=== PATIENT | male | born 1955 | race Caucasian/White ===

== ENCOUNTER 2019-07-17 09:24 | Inpatient (IN) ==
--- NOTE | 2019-07-08 10:58 | PAT Medication Instructions ---
Medication Instructions Date of Service July 08, 2019 Home Medications carvedilol 25 mg tablet 25 mg PO BID fenofibrate nanocrystallized 145 mg tablet 145 mg PO QAM glipizide 10 mg tablet 10 mg PO QAM liraglutide 0.6 mg/0.1 mL (18 mg/3 mL) subcutaneous pen injector 0.6 mg SQ QAM pioglitazone 30 mg tablet 30 mg PO QAM STOP taking 48 hours before surgery fenofibrate nanocrystallized 145 mg tablet 145 mg PO QAM DO NOT take the morning of surgery glipizide 10 mg tablet 10 mg PO QAM pioglitazone 30 mg tablet 30 mg PO QAM Take morning of surgery With a small sip of water, OTHERWISE NOTHING TO EAT OR DRINK AFTER MIDNIGHT: carvedilol 25 mg tablet 25 mg PO BID liraglutide 0.6 mg/0.1 mL (18 mg/3 mL) subcutaneous pen injector 0.6 mg SQ QAM Other Notes If you have any questions please call us at [phone] or [phone] or [phone] or [phone]
--- NOTE | 2019-07-08 15:13 | Anesthesiology Consultation ---
Date of Service July 08, 2019 Assessment & Plan (1) Encounter for pre-operative examination: - Awaiting review preop testing (labs, EKG, CXR). - CKD Stage IV- follows with nephrology (Dr. Wheeler/AASHISH). GFR in the 17-20 range per chart review. Nephrology recommending future PD vs. hemodialysis (no definitive start date planned). Note faxed to nephrology making them aware of upcoming surgery/requesting optimization response/perioperative recommendations. Awaiting response from nephrology. - PCP: 07/03/19: "He is medically stable for the proposed surgery." - Check [facility]G AM DOS Chart Review Chart Review: Pending: Refer to Additional Notes / Consult section and Patient seen in Pre Admission Testing awaiting nephrology eval Consults Requested none Teaching & Discussion Pre-Anesthesia Teaching/Discussion Notes: Instructed NPO after midnight before surgery,except medications with 15 cc of water. Medication instructions provided according to the PAT guidelines. History Surgery Operation Date: 07/17/19 11:50 Proposed Procedures p Robotic Laparoscopic Prostatectomy, Possible Lymph Node Dissection - Hesham Robert MD Height/Weight Height: 5 ft 5 in Weight: 80 kg Allergies Allergy/AdvReac Type Severity Reaction Status Date / Time No Known Allergies Allergy Verified 07/01/19 15:07 Medications Home Medications Medication Instructions Recorded Confirmed Last Taken carvedilol 25 mg tablet 25 mg PO BID 06/26/19 07/01/19 Unknown fenofibrate nanocrystallized 145 145 mg PO QAM 06/26/19 07/01/19 Unknown mg tablet glipizide 10 mg tablet 10 mg PO QAM 06/26/19 07/01/19 Unknown liraglutide 0.6 mg/0.1 mL (18 mg/3 0.6 mg SQ QAM 06/26/19 07/01/19 Unknown mL) subcutaneous pen injector pioglitazone 30 mg tablet 30 mg PO QAM 06/26/19 07/01/19 Unknown Past Medical History Medical History Gout hx CKD (chronic kidney disease) Stage IV- follows with nephrology (Dr. Wheeler/AASHISH). GFR in the 17-20 range per chart review. Nephrology recommending future PD vs. hemodialysis (no definitive start date planned) Diabetes High blood pressure Prostate cancer Exercise / Class Metabolic Activity III < 4 Walking/Shop/Light housework Past Family History Family History Father Heart disease Family history of lung cancer Mother Family history of diabetes mellitus Past Surgical History Surgical History History of appendectomy History of colonoscopy Past Anesthesia History No Hx of Anesthesia Complications and No Family Hx of Anesthesia Complications History of PONV No Hx of PONV and No Hx of Motion Sickness Social History Smoking Status: Former smoker Do You Dip or Chew Tobacco: No Smoking End Date: Quit 1975 Hx Alcohol Use: No Hx Substance Use: No substance use type: does not use Review of Systems Patient denies chest pain, shortness of breath, dyspnea on exertion, cough, wheezing, palpitations. Physical Exam Vital Signs VITALS BP 146/88 P 74 TEMP 97.3 SP02 95%RA RESP 16 PHYSICAL Full neck and c-spine range of motion. Full TMJ range of motion. TMD 3 finger breaths Mallampati Score 2 Dentition: intact Lungs: clear throughout to auscultation Cardiac: regular rate and rhythm, no murmurs noted Spine: normal Carotid arteries: negative bruit Extremities: no edema Testing Laboratory Results 07/08/19 15:20 07/08/19 15:20 Urine Color Yellow 07/08/19 15:20 Urine Appearance Clear (Clear) 07/08/19 15:20 Urine pH 5.0 (4.5-7.5) 07/08/19 15:20 Ur Specific [place] 1.020 (1.000-1.030) 07/08/19 15:20 Urine Protein Negative (Negative) 07/08/19 15:20 Urine Glucose (UA) Trace (Negative) H 07/08/19 15:20 Urine Ketones Negative (Negative) 07/08/19 15:20 Urine Nitrite Negative (Negative) 07/08/19 15:20 Ur Leukocyte Esterase Negative (Negative) 07/08/19 15:20 Blood Type O Positive 07/08/19 15:20 Antibody Screen NEGATIVE 07/08/19 15:20 Electrocardiogram Date: 07/08/19 Findings: + NSR @ 1st degree AVB Chest X-Ray Date: 07/08/19 Findings: + cardiomegaly and + pulmonary vascular congestion trace pleural effusions
--- NOTE | 2019-07-08 15:55 | XRay Report ---
XR chest Pre-admission PA/Lat HISTORY: 64 years-old Male pat preoperative exam. No acute chest complaints COMPARISON: None available TECHNIQUE: PA and lateral views of the chest FINDINGS: Cardiac silhouette is mildly enlarged. Mild pulmonary vascular congestion. Calcified plaque the thora cic aortic arch. No pneumothorax or overt pulmonary edema. Hazy bibasilar opacities with blunting of the costophrenic angles. Degenerative changes of the shoulders and spine. IMPRESSION: 1. Cardiomegaly without overt pulmonary edema. 2. Trace pleural effusions with bibasilar opacities favoring atelectasis. The above report was generated using voice recognition software. It may contain grammatical, syntax o r spelling errors. Electronically signed by: Chau Rodriguez M.D. 07/08/2019 3:54 PM
[2019-07-08 16:05] LABS: Basophils # (auto) 0.06 K/uL (0-0.2); Basophils % (auto) 0.8 %; Eosinophils # (auto) 0.37 K/uL (0-0.5); Eosinophils % (auto) 4.9 %; Hematocrit (blood only) 32.9 % (42-52); Immature Granulocytes # (auto) 0.01 K/uL (0.00-0.02); Immature Granulocytes % (auto) 0.1 %; Lymphocytes # (auto) 1.52 K/uL (1.2-3.4); Lymphocytes % (auto) 20.1 %; Mean Corpuscular Hemoglobin 30.1 pg (25-34); Mean Corpuscular Hgb Conc 33.4 g/dL (32-36); Mean Corpuscular Volume 90.1 fL (80-100); Mean Platelet Volume 12.1 fL (7.4-10.4); Monocytes # (auto) 0.54 K/uL (0.11-0.59); Monocytes % (auto) 7.1 %; Neutrophils # (auto) 5.07 K/uL (1.4-6.5); Platelet Count 205 K/uL (130-400); RDW Coefficient of Variation 15.1 % (11.5-14.5); RDW Standard Deviation 49.8 fL (36.4-46.3); Red Blood Count 3.65 M/uL (4.7-6.1); White Blood Count 7.57 K/uL (4.8-10.8)
[2019-07-08 16:13] LABS: BUN Creatinine Ratio 13.7 (10-20); Calcium 9.9 mg/dl (8.5-10.1); Creatinine Clr Calc Pharmacy 24.2 ml/min; Est GFR (African American) 24.3; Potassium 3.8 mmol/L (3.5-5.1)
[2019-07-08 16:23] LABS: Appearance Urine Clear (Clear); Bilirubin Urine Negative (Negative); Blood Urine Negative (Negative); Color Urine Yellow; Glucose Urine UA Trace (Negative); Ketones Urine Negative (Negative); Leukocyte Esterase Urine Negative (Negative); Nitrite Urine Negative (Negative); Protein Urine Negative (Negative); Urobilinogen Urine Negative (Negative)
[~2019-07-17 09:24] MED LIST: ACETAMINOPHEN 1,000 MG/100 ML VIAL IV SCH; CEFAZOLIN 2000MG 2,000 MG/15 ML SYR IV SCH; HEPARIN SOD 5,000 UNIT/0.5 ML VIAL SQ SCH; LACTATED RINGER'S 1,000 ML IV SCH; MIDAZOLAM HCL 1 MG/ML 2ML VIAL ONE; SODIUM CHLORIDE 0.9% 1000ML IV SCH; fentaNYL citrate 100 MCG/2 ML VIAL ONE
--- NOTE | 2019-07-17 10:29 | History & Physical Bridge Note ---
Date of Service July 17, 2019 History & Physical Bridge Note I have examined the patient, reviewed the History & Physical and in the interval since the performance of the History & Physical I have noted the following changes of clinical significance: no changes noted
[2019-07-17] MEDS ORDERED: ATROPINE SULFATE 0.1 MG/ML 10ML SYR IV PRN (10:43)
[2019-07-17] MEDS ORDERED: HYDROmorphone INJ 1 MG/ML SYRINGE IV PRN ×2 (10:43→17:10)
[2019-07-17] MEDS ORDERED: ONDANSETRON INJ 2 MG/ML 2 ML VIAL IV PRN ×2 (10:43→17:10)
[2019-07-17] MEDS ORDERED: BUPIVACAINE 0.5 % 5 MG/1 ML MPF 30ML VIAL ONE (11:05)
[2019-07-17] MEDS ORDERED: SURGICEL ABSORB HEMOSTAT 2IN X 14IN TOP ONE ×2 (12:37→13:41)
[2019-07-17] MEDS ORDERED: fentaNYL citrate 100 MCG/2 ML VIAL ONE (12:57)
[2019-07-17] MEDS ORDERED: PHENYLEPHRINE 100MCG/ML 5ML SYR ONE (13:00)
[2019-07-17] MEDS ORDERED: CISATRACURIUM BESYLATE IV SOLN 2 MG/ML 10 ML VIAL IV ONE (13:00)
[2019-07-17] MEDS ORDERED: NEOSTIGMINE METHYLSULFATE 5 MG/5 ML SYR ONE (13:00)
[2019-07-17] MEDS ORDERED: PROPOFOL IV EMULSION 10 MG/ML 20 ML VIAL IV ONE (13:00)
[2019-07-17] MEDS ORDERED: ONDANSETRON INJ 2 MG/ML 2 ML VIAL ONE (13:00)
[2019-07-17] MEDS ORDERED: ePHEDrine sulfate 50 MG/ML SYR ONE (13:00)
[2019-07-17] MEDS ORDERED: DEXAMETHASONE SOD INJ 4 MG/ML VIAL ONE (13:00)
[2019-07-17] MEDS ORDERED: LIDOCAINE HCL 2% 2 ML VIAL/AMP(20MG/ML) INFIL ONE (13:00)
[2019-07-17] MEDS ORDERED: LARYING-O-JET KIT (LTA) ONE (13:00)
[2019-07-17] MEDS ORDERED: GLYCOPYRROLATE 0.2 MG/ML VIAL ONE (13:00)
[2019-07-17] MEDS ORDERED: FLOSEAL HEMOSTATIC MATRIX 10ML TOP ONE (13:41)
--- NOTE | 2019-07-17 15:51 | Operative Report ---
PG Post Operative Report Pre & Post Diagnosis Operation Date: 07/17/19 11:30 Pre-Op Diagnosis: Prostate Cancer Post-Op Diagnosis: Prostate Cancer I identified the patient and participated in the time-out.: Yes Procedure Operation Date: 07/17/19 11:30 Actual Procedures p Robotic Laparoscopic Prostatectomy, Lymph Node Dissection, Laparoscopic lysis of adhesions - Hesham Robert MD Surgeon Hesham Robert MD [employer] GRIFFIN ERNANDEZ Estimated Blood Loss 150 Findings Consistent with Post-Op Diagnosis Specimens Prostate + SVs, periprostatic fat, R and L PLN Description of Procedure See above I attest to the content of the Intraoperative Record and any orders documented therein. Any exceptions are noted below.
[2019-07-17 16:22] LABS: Basophils # (auto) 0.03 K/uL (0-0.2); Basophils % (auto) 0.3 %; Eosinophils # (auto) 0.15 K/uL (0-0.5); Eosinophils % (auto) 1.3 %; Hematocrit (blood only) 34.3 % (42-52); Hemoglobin 11.3 g/dL (14.0-18.0); Immature Granulocytes # (auto) 0.03 K/uL (0.00-0.02); Immature Granulocytes % (auto) 0.3 %; Lymphocytes # (auto) 0.42 K/uL (1.2-3.4); Lymphocytes % (auto) 3.6 %; Mean Corpuscular Hemoglobin 30.2 pg (25-34); Mean Corpuscular Volume 91.7 fL (80-100); Mean Platelet Volume 11.8 fL (7.4-10.4); Monocytes # (auto) 0.27 K/uL (0.11-0.59); Monocytes % (auto) 2.3 %; Neutrophils # (auto) 10.61 K/uL (1.4-6.5); Neutrophils % (auto) 92.2 %; Platelet Count 177 K/uL (130-400); RDW Coefficient of Variation 15.1 % (11.5-14.5); Red Blood Count 3.74 M/uL (4.7-6.1); White Blood Count 11.51 K/uL (4.8-10.8)
[2019-07-17 16:24] LABS: Mean Corpuscular Hgb Conc 32.9 g/dL (32-36)
[2019-07-17 16:39] LABS: BUN Creatinine Ratio 14.9 (10-20); Calcium 9.1 mg/dl (8.5-10.1); Creatinine Clr Calc Pharmacy 23.5 ml/min; Est GFR (African American) 23.9; Est GFR (Non-African American) 20.6; Potassium 4.1 mmol/L (3.5-5.1)
--- NOTE | 2019-07-17 16:42 | Anesthesiology Progress Note ---
Date of Service July 17, 2019 Anesthesia Post Procedure Vital Signs Vital Signs: Temp Pulse Pulse Resp BP Pulse Ox 07/17/19 16:30 37.0 C 71 17 115/74 97 07/17/19 16:20 74 20 115/79 98 07/17/19 16:10 75 21 115/75 98 07/17/19 16:00 78 11 L 119/73 98 07/17/19 15:53 36.8 C 87 16 119/84 98 07/17/19 10:08 37.2 C 90 20 121/84 96 Transfer of Care Handoff Completed per policy Notes Mental Status: alert / awake / arousable and participated in evaluation Patient Amnestic to Procedure: Yes Nausea / Vomiting: adequately controlled Pain: adequately controlled Airway Patency, RR, SpO2: stable & adequate BP & HR: stable & adequate Hydration State: stable & adequate Anesthetic Complications: no major complications apparent
[2019-07-17] MEDS ORDERED: OXYCODONE HCL IR 5 MG TAB (IMMEDIATE RELEASE) PO PRN (17:10)
[2019-07-17] MEDS ORDERED: HYDROmorphone INJ 0.5 MG/0.5 ML SYR IV PRN (17:23)
[2019-07-17] MEDS: LACTATED RINGER'S 1,000 ML IV SCH (17:27)
[2019-07-17] MEDS ORDERED: PHARMACY GLYCEMIC MGMT CONSULT PRN (17:36)
[2019-07-17] MEDS ORDERED: CARBOHYDRATES FOR HYPOGLYCEMIA PO PRN (17:45)
[2019-07-17] MEDS ORDERED: GLUCAGON FOR INJ 1 MG VIAL IM PRN (17:45)
[2019-07-17] MEDS ORDERED: GLUCOSE 40% GEL 15 GM TUBE PO PRN (17:45)
[2019-07-17] MEDS ORDERED: GLUCOSE 10 TABS/TUBE PO PRN (17:45)
[2019-07-17] MEDS ORDERED: DEXTROSE 50% 50 ML SYRINGE IV PRN (17:45)
[2019-07-17] MEDS ORDERED: NovoLIN-N (NPH) PER UNIT CHARGE SQ SCH (18:00)
[2019-07-17] MEDS: INSULIN ASPART 100 UNITS/ML 3 ML PEN SC SCH ×3 (18:10→23:43)
--- NOTE | 2019-07-17 18:42 | Hospitalist Consultation ---
Date of Consultation July 17, 2019 Assessment & Plan (1) S/P prostatectomy: (2) Prostate cancer: -POD#0 laparoscopic prostatectomy with lymph node dissection with Dr. Robert -Recently diagnosed with prostate cancer and presented for planned procedure today -Management as per urology (3) CKD (chronic kidney disease), stage IV: -Baseline creatinine low to mid 3's -Follows with [facility] nephrology, Dr. Alejandro -Planning for possible peritoneal dialysis -Monitor renal functions (4) DM type 2 (diabetes mellitus, type 2): -Hgb A1c 5.6 06/2019 -Home oral agents and Victoza on hold -Glycemic pharmacy consulted by urology (5) HTN (hypertension): -BP controlled, continue carvedilol (6) DVT prophylaxis: -Teds/SCDs as per urology Thank you for this consultation. We will follow the patient with you during their hospital stay. You can reach a [facility] via pager @ [phone]. Supervising Physician Co-Signing Physician Notes Attending addendum: The patient was seen and examined in medical floor He is a 64-year-old male with significant past medical history of CKD stage IV, type 2 diabetes and hypertension underwent laparoscopic prostatectomy for carcinoma of the prostate He has been stable without any acute symptoms following the surgery On examination No apparent distress at rest Hemodynamically stable Chest-clear to auscultate bilateral Heart-S1-S2, regular, no murmur appreciated Abdomen-benign Extremities-negative for any edema His labs and imaging studies reviewed Status post laparoscopic prostatectomy due to prostate cancer, POD #0 Agree with assessment and plan as outlined above by Ivett Frankel History of Present Illness Reason for Consultation: Postop medical management Requesting Physician: Dr. Robert Attending Physician: Dr. Frankel History of Present Illness 64-year-old male who is status post laparoscopic prostatectomy with lymph node dissection today per Dr. Robert. Patient was recently diagnosed with prostate cancer and therefore presented for planned procedure today. Postoperatively, the patient is doing well. He reports his pain is well controlled. Denies chest pain and shortness of breath. No lightheadedness or dizziness. Denies abdominal pain or nausea. Jett catheter is in place draining bloody urine. Allergies Allergy/AdvReac Type Severity Reaction Status Date / Time No Known Allergies Allergy Verified 07/17/19 10:04 Home Medications Home Medications Medication Instructions Recorded Confirmed Type carvedilol 25 mg tablet 12.5 mg PO BID 06/26/19 07/17/19 History fenofibrate nanocrystallized 145 145 mg PO QAM 06/26/19 07/17/19 History mg tablet glipizide 10 mg tablet 10 mg PO QAM 06/26/19 07/17/19 History liraglutide 0.6 mg/0.1 mL (18 mg/3 0.6 mg SQ QAM 06/26/19 07/17/19 History mL) subcutaneous pen injector pioglitazone 30 mg tablet 30 mg PO QAM 06/26/19 07/17/19 History Patient History Medical History (Updated 07/17/19 @ 18:47 by AWAIS Prieto) CKD (chronic kidney disease), stage IV DM type 2 (diabetes mellitus, type 2) Gout hx Hypertension Prostate cancer Surgical History (Updated 07/17/19 @ 18:47 by AWAIS Prieto) History of appendectomy History of colonoscopy S/P prostatectomy Family History Father Heart disease Family history of lung cancer Mother Family history of diabetes mellitus Social History Preferred Language: Pashto Communication Ability: Effective Disability Coordinator Required: No Beliefs That Will Affect Care: None marital status: Current Living Situation: Spouse and Family Other Information That Helps Us Care for You: No Feels Safe at Home: Yes Smoking Status: Former smoker Do You Dip or Chew Tobacco: No ; Smoking End Date: Quit 1975 ; Hx Alcohol Use: No Hx Substance Use: No Childhood Exposure to Second-Hand Smoke: No Review of Systems Review of Systems: ROS per HPI, all other systems reviewed and negative Physical Exam Constitutional: WD/WN, vitals as above Eyes: PERRL, conjunctivae normal, anicteric sclerae ENMT: external ear and nose normal, oropharynx normal Respiratory: normal respiratory effort, lungs clear to auscultation Cardiovascular: Rate/Rhythm: regular rate and regular rhythm Vessels: normal peripheral pulses Extremities: no edema Gastrointestinal (Abdomen): normal bowel sounds, soft, nontender, no hepatosplenomegaly Laparoscopic incisions noted - intact without drainage; MORTEZA drain in place to left flank, draining bloody drainage Musculoskeletal: no cyanosis or clubbing, extremities motor strength 5/5 Skin: no rashes, warm and dry Neurologic: PERRL, EOMI, accommodation nl, no face palsy, no dysarthria Psychiatric: A+Ox3, euthymic affect Genitourinary: Jett catheter in place draining bloody drainage Results & Data Vital Signs (Past 12 Hours) Vital Signs Temp Pulse Pulse Resp BP BP Pulse Ox 07/17/19 17:45 36.6 C 74 18 129/80 96 07/17/19 17:15 36.5 C 63 18 130/77 130/77 97 07/17/19 16:40 37.0 C 73 17 125/77 97 07/17/19 16:30 37.0 C 71 17 115/74 97 07/17/19 16:20 74 20 115/79 98 07/17/19 16:10 75 21 115/75 98 07/17/19 16:00 78 11 L 119/73 98 07/17/19 15:53 36.8 C 87 16 119/84 98 07/17/19 10:08 37.2 C 90 20 121/84 96
[2019-07-17] MEDS: CEFAZOLIN 2000MG 2,000 MG/15 ML SYR IV SCH (19:43)
[2019-07-17] MEDS: OXYBUTYNIN CHLORIDE 5 MG TAB PO SCH (20:47)
[2019-07-17] MEDS: carvediloL 12.5 MG TAB PO SCH (20:49)
[2019-07-17] MEDS ORDERED: carvediloL 25 MG TAB PO SCH (21:00)
[2019-07-17] MEDS ORDERED: NURSING DECISION MEDICATION ONE (22:42)
[2019-07-17] MEDS ORDERED: COUGH DROP (SUGAR FREE) LOZ 24 LOZ/1 BOX BUCCAL PRN (22:44)
[2019-07-18] MEDS: CEFAZOLIN 2000MG 2,000 MG/15 ML SYR IV SCH (04:17)
[2019-07-18] MEDS: INSULIN ASPART 100 UNITS/ML 3 ML PEN SC SCH ×5 (04:35→20:25)
[2019-07-18] MEDS: LACTATED RINGER'S 1,000 ML IV SCH ×2 (06:08→19:27)
--- NOTE | 2019-07-18 06:58 | Urology Progress Note ---
Date of Service July 18, 2019 Assessment & Plan (1) Prostate cancer: (2) S/P prostatectomy: 64 yo male POD#1 s/p RALRP, BPLND for Yolanda 3+[address] Robert Appreciate hospitalist recommendations for medical management. Pleased with maintained kidney function immediate post operatively. Wean O2. Will increase diet to renal, soft. Plan to keep overnight tonight to ensure good clinical progress prior to discharge. Pt noted to have significant scar tissue intraoperatively. Will arrange for cystogram prior to voiding trial prior to post operative visit. Subjective 64 yo male POD#1 s/p RALRP, BPLND for Yolanda 3+[address] Robert. His intraop findings are reviewed. Pt doing well this AM. Denies pain or discomfort from luciano catheter. Tolerating clear liquids well Chart reviewed, ~200 cc per MORTEZA last shift as anticipated 400 cc UOP via luciano noted. Cr maintained at baseline, 2.99 this AM. Review of Systems Review of Systems: Constitutional: Denies fever, chills, sweats, malaise Eyes: Denies problem reported ENMT: Denies dizziness Resp: Denies cough, Denies shortness of breath CV: Denies JVD GI: Denies nausea/vomiting : Denies suprapubic or flank pain, dysuria, urgency, frequency, hematuria MS: Denies swelling, stiffness Integ: Denies rash, erythema Neuro: Denies falls, weakness Psych: Denies behavior change Endo: Denies polyphagia, polydipsia Heme: Denies easy bleeding Physical Exam Constitutional: no acute distress and not ill appearing Eyes: no nystagmus ENMT: Ears: no hearing impairment Neck: trachea midline Respiratory: no respiratory distress and no cough Cardiovascular: Vessels: no JVD Chest (Breasts): Chest: normal inspection of chest Gastrointestinal (Abdomen): Inspection/Auscultation: abdomen not distended and no abdominal edema Percussion/Palpation: abdomen soft; abdomen nontender Musculoskeletal: Head/Neck/Chest: normocephalic and head atraumatic Skin: no rashes, warm and dry incisions c/d/i MORTEZA draining minimal serosang Luciano draining adequate amounts of obdulio colored urine, minimal clots Neurologic: awake; not confused and not obtunded Psychiatric: Orientation: alert and oriented x 3 Eye Contact: good eye contact Affect: no depressed affect Genitourinary: bladder normal to inspection; no CVA tenderness Lymphatic: no lymphadenopathy and no lymphedema Results & Data Vital Signs (Past 12 Hours) Vital Signs Temp Pulse Pulse Resp BP BP Pulse Ox 07/18/19 04:38 36.6 C 72 20 102/65 98 07/18/19 00:00 83 07/17/19 22:40 35.7 C L 89 18 116/77 99 07/17/19 19:45 36.3 C L 83 18 130/82 98 07/17/19 19:35 81 PG Care Time/CCT Total # of Minutes Spent Total Time Spent with Patient: Total time spent is greater than 50% in coordination of care (as documented) at patient's floor/unit and/or counseling patient:
[2019-07-18 07:43] LABS: Basophils # (auto) 0.02 K/uL (0-0.2); Basophils % (auto) 0.1 %; Eosinophils # (auto) 0.06 K/uL (0-0.5); Eosinophils % (auto) 0.4 %; Hematocrit (blood only) 31.7 % (42-52); Hemoglobin 10.6 g/dL (14.0-18.0); Immature Granulocytes # (auto) 0.03 K/uL (0.00-0.02); Immature Granulocytes % (auto) 0.2 %; Lymphocytes # (auto) 0.84 K/uL (1.2-3.4); Lymphocytes % (auto) 6.3 %; Mean Corpuscular Hemoglobin 30.4 pg (25-34); Mean Corpuscular Hgb Conc 33.4 g/dL (32-36); Mean Corpuscular Volume 90.8 fL (80-100); Mean Platelet Volume 11.7 fL (7.4-10.4); Monocytes # (auto) 0.96 K/uL (0.11-0.59); Monocytes % (auto) 7.1 %; Neutrophils # (auto) 11.53 K/uL (1.4-6.5); Neutrophils % (auto) 85.9 %; Platelet Count 158 K/uL (130-400); RDW Coefficient of Variation 15.2 % (11.5-14.5); Red Blood Count 3.49 M/uL (4.7-6.1); White Blood Count 13.44 K/uL (4.8-10.8)
--- NOTE | 2019-07-18 08:13 | Anesthesiology Progress Note ---
Date of Service July 18, 2019 Anesthesia Post Procedure Vital Signs Vital Signs: Temp Pulse Pulse Pulse Pulse Resp BP 07/18/19 06:57 36.5 C 73 20 07/18/19 04:38 36.6 C 72 20 102/65 07/18/19 00:00 83 07/17/19 22:40 35.7 C L 89 18 07/17/19 19:45 36.3 C L 83 18 130/82 07/17/19 19:35 81 07/17/19 18:45 36.4 C L 70 18 127/65 07/17/19 17:45 36.6 C 74 18 129/80 07/17/19 17:15 36.5 C 63 18 130/77 07/17/19 17:00 36.5 C 74 18 116/75 07/17/19 16:40 37.0 C 73 17 07/17/19 16:30 37.0 C 71 17 07/17/19 16:20 74 20 07/17/19 16:10 75 21 07/17/19 16:00 78 11 L 07/17/19 15:53 36.8 C 87 16 07/17/19 10:08 37.2 C 90 20 BP Pulse Ox 07/18/19 06:57 112/70 97 07/18/19 04:38 98 07/18/19 00:00 07/17/19 22:40 116/77 99 07/17/19 19:45 98 07/17/19 19:35 07/17/19 18:45 99 07/17/19 17:45 96 07/17/19 17:15 130/77 97 07/17/19 17:00 97 07/17/19 16:40 125/77 97 07/17/19 16:30 115/74 97 07/17/19 16:20 115/79 98 07/17/19 16:10 115/75 98 07/17/19 16:00 119/73 98 07/17/19 15:53 119/84 98 07/17/19 10:08 121/84 96 Notes Mental Status: alert / awake / arousable and participated in evaluation Nausea / Vomiting: adequately controlled Pain: adequately controlled Airway Patency, RR, SpO2: stable & adequate BP & HR: stable & adequate Hydration State: stable & adequate Anesthetic Complications: no major complications apparent and Pt Satisfied with anesthetic care
[2019-07-18 08:14] LABS: BUN Creatinine Ratio 14.4 (10-20); Calcium 9.3 mg/dl (8.5-10.1); Creatinine Clr Calc Pharmacy 25.2 ml/min; Est GFR (African American) 24.4; Est GFR (Non-African American) 21.1; Potassium 3.7 mmol/L (3.5-5.1)
--- NOTE | 2019-07-18 08:23 | Hospitalist Progress Note ---
Date of Service July 18, 2019 Assessment & Plan (1) S/P prostatectomy: (2) Prostate cancer: POD#1 laparoscopic prostatectomy with lymph node dissection with Dr. Robert Recently diagnosed with prostate cancer and presented for planned procedure today H/H stable continue luciano cath per urology wean off O2 (3) CKD (chronic kidney disease), stage IV: -Baseline creatinine low to mid 3's Follows with [facility] nephrology, Dr. Alejandro Planning for possible peritoneal dialysis bun/cr 43/2.99 (4) DM type 2 (diabetes mellitus, type 2): Hgb A1c 5.6 06/2019 Home oral agents and Victoza on hold Glycemic pharmacy consulted by urology - appreciate their input (5) HTN (hypertension): blood pressure controlled, continue carvedilol (6) Anemia: H/H stable at 10.6/31.7 likely in setting of renal dz stable, monitor (7) DVT prophylaxis: Teds/SCDs as per urology Pt seen and examined in collaboration with Dr. Hall, please see addendum Thank you for this consultation. We will follow the patient with you during their hospital stay. You can reach a [facility] via pager @ [phone]. Supervising Physician Co-Signing Physician Notes I, Dr. Alexys Hall, have seen and examined the patient with physician unit assistant and would like to comment that This is a 64 year old male under the direct care of [facility] [address] Urology service with hospitalist internal medicine service following as consult who is on 07/17/19 status post Robotic Laparoscopic Prostatectomy, Lymph Node Dissection, Laparoscopic lysis of adhesions because of outpatient diagnosis of prostate cancer On exam General: no acute distress Lungs: breathing on room air, clear to auscultation bilaterally Heart: regular heart rate Abdomen: bowel sounds present, truncal obesity, tenderness on palpation of left abdomen and patient reports this was present to the touch even before the prostate procedure, otherwise he denies acute abdominal pain Urinary: has luciano with some darkish brown like blood tinged urine s/p PROSTATECTOMY PROSTATE CANCER TYPE 2 DIABETES MELLITUS WITHOUT RESIDENTIAL CURRENT USE OF INSULIN CHRONIC KIDNEY DISEASE STAGE IV HYPERTENSION ANEMIA -status post Robotic Laparoscopic Prostatectomy, Lymph Node Dissection, Laparoscopic lysis of adhesions because of outpatient diagnosis of prostate cancer -urology service increase diet to renal, soft and plans to keep overnight tonight to ensure good clinical progress prior to discharge. -will maintain IV fluids and trend the renal function -blood pressure stable -blood glucose is controlled -Hgb above 10, no need to transfuse -agree with other assessment and plans as documented by physician unit assistant Subjective Patient seen and examined in room 276 -1 POD#1 s/p RALRP, BPLND for [place] 3+4 He offers no acute concerns. Currently on oxygen and has been since procedure, but states he does not wear oxygen at home. Denies fever, chills, sweats, lightheadedness, dizziness, chest pain, shortness of breath, nausea, vomiting, abdominal pain. He does have mild incisional discomfort. Luciano catheter remains in place. Appetite is good. Review of Systems Review of Systems: All systems reviewed & are unremarkable except as noted in HPI & below Physical Exam Physical Exam: Gen: WD/WN, NAD, M, A&O x3 HEENT: Normocephalic, atraumatic, conjunctivae moist, sclerae anicteric, mucous membranes moist. Lung: Clear to Auscultation bilaterally, no wheezes/rales/rhonchi Heart: Regular rate, regular rhythm, no murmurs, rubs, or gallops Abdomen: Soft, NT, ND +BS x 4, + incisions CDI Extremities: No edema Skin: Warm, no rash, negative turgor. : Luciano with good urine output Results & Data Vital Signs (Past 12 Hours) Vital Signs Temp Pulse Pulse Resp BP BP Pulse Ox 07/18/19 06:57 36.5 C 73 20 112/70 97 07/18/19 04:38 36.6 C 72 20 102/65 98 07/18/19 00:00 83 07/17/19 22:40 35.7 C L 89 18 116/77 99 Laboratory Results Short CBC 07/17/19 07/18/19 Range/Units 16:15 07:31 WBC 11.51 H 13.44 H (4.8-10.8) K/uL Hgb 11.3 L 10.6 L (14.0-18.0) g/dL Hct 34.3 L 31.7 L (42-52) % Plt Count 177 158 (130-400) K/uL BMP 07/17/19 07/18/19 16:15 07:31 Sodium 139 139 Potassium 4.1 3.7 Chloride 111 H 109 H Carbon Dioxide 17 L 21 BUN 45 H 43 H Creatinine 3.04 H 2.99 H Glucose 174 H 94 Calcium 9.1 9.3 Medications Administered Carvedilol (Coreg) 12.5 mg PO BID [facility] Stop: 08/16/19 20:59 Last Admin: 07/17/19 20:49 Dose: 12.5 mg Documented by: [id number] Lactated Ringer's (Lr) 1,000 mls @ 75 mls/hr IV .[id number] [facility] Stop: 08/16/19 17:09 Last Admin: 07/18/19 06:08 Dose: 75 mls/hr Documented by: [id number] Infusion: 07/18/19 06:08 Dose: 75 mls/hr Documented by: [id number] Admin: 07/17/19 17:27 Dose: 75 mls/hr Documented by: [id number] Insulin Aspart (Novolog Flexpen) 0 units SC ACHS [facility] Stop: 08/16/19 17:29 Last Admin: 07/17/19 20:47 Dose: 2 units Documented by: [id number] Cosigned by: [id number] Admin: 07/17/19 18:10 Dose: 6 units Documented by: [id number] Cosigned by: [id number] Menthol (Nice) 1 margarita BUCCAL PRN PRN PRN Reason: Cough Stop: 08/16/19 22:43 Last Admin: 07/17/19 23:39 Dose: 1 margarita Documented by: [id number] Oxybutynin Chloride (Ditropan) 5 mg PO BID [facility] Stop: 08/16/19 20:59 Last Admin: 07/17/19 20:47 Dose: 5 mg Documented by: [id number] Discontinued Medications Bupivacaine HCl (Marcaine 0.5% Mpf) Confirm Administered Dose 30 ml .ROUTE .STK- MED ONE Stop: 07/17/19 11:06 Last Admin: 07/17/19 12:45 Dose: 30 ml Documented by: [id number] Heparin Sodium (Porcine) (Heparin Sodium (Porcine)) 5,000 units SQ PREOP [facility] Stop: 07/17/19 18:00 Last Admin: 07/17/19 10:34 Dose: 5,000 units Documented by: [id number] Cosigned by: [id number] Cefazolin Sodium (Ancef 2000mg) 2,000 mg in 15 mls @ 3.75 mls/min IV PREOP [facility] Stop: 07/17/19 18:00 Last Admin: 07/17/19 12:00 Dose: 3.75 mls/min Documented by: [id number] Lactated Ringer's (Lr) 1,000 mls @ 15 mls/hr IV .Q24H [facility] Stop: 07/17/19 18:00 Last Admin: 07/17/19 10:37 Dose: Not Given Documented by: [id number] Acetaminophen (Ofirmev) 1,000 mg in 100 mls @ 400 mls/hr IV PREOP [facility]; Protocol Stop: 07/17/19 18:00 Last Infusion: 07/17/19 10:49 Dose: 0 mls/hr Documented by: [id number] Admin: 07/17/19 10:34 Dose: 400 mls/hr Documented by: [id number] Sodium Chloride (Nss 1000ml) 1,000 mls @ 15 mls/hr IV .Q24H [facility] Stop: 07/18/19 05:59 Last Infusion: 07/17/19 11:42 Dose: 0 mls/hr Documented by: [id number] Admin: 07/17/19 10:25 Dose: 15 mls/hr Documented by: [id number] Cefazolin Sodium (Ancef 2000mg) 2,000 mg in 15 mls @ 3.75 mls/min IV Q8H [facility]; Protocol Stop: 07/18/19 04:03 Last Admin: 07/18/19 04:17 Dose: 3.75 mls/min Documented by: [id number] Admin: 07/17/19 19:43 Dose: 3.75 mls/min Documented by: [id number] Insulin Aspart (Novolog Flexpen) 0 units SC TODAY@0000,0400 [facility] Stop: 07/18/19 05:00 Last Admin: 07/18/19 04:35 Dose: Not Given Documented by: [id number] Cosigned by: [id number] Admin: 07/17/19 23:43 Dose: 1 units Documented by: [id number] Cosigned by: [id number] Insulin Human NPH (Novolin N U-100 Nph Per Unit) 30 units SQ TODAY@1800 [facility] Stop: 07/17/19 18:01 Last Admin: 07/17/19 18:09 Dose: 30 units Documented by: [id number] Cosigned by: [id number] Miscellaneous (Surgicel Absorb Hemostat 2in X 14in) 1 ea TOP ONCE ONE Stop: 07/17/19 12:38 Last Admin: 07/17/19 13:03 Dose: 1 ea Documented by: [id number] Miscellaneous (Floseal Hemostatic Matrix 10ml) 10 ml TOP ONCE ONE Stop: 07/17/19 13:42 Last Admin: 07/17/19 13:42 Dose: 10 ml Documented by: [id number] Miscellaneous (Surgicel Absorb Hemostat 2in X 14in) 1 ea TOP ONCE ONE Stop: 07/17/19 13:42 Last Admin: 07/17/19 13:42 Dose: 1 ea Documented by: [id number]
[2019-07-18] MEDS: OXYBUTYNIN CHLORIDE 5 MG TAB PO SCH ×2 (08:46→20:19)
[2019-07-18] MEDS: carvediloL 12.5 MG TAB PO SCH ×2 (08:46→20:21)
[2019-07-18] MEDS: FENOFIBRATE NANOCRYSTALLIZED 145 MG TABLET PO SCH (08:47)
--- NOTE | 2019-07-18 09:38 | Pharmacy Report ---
Glycemic Control Consultation - Date of Service July 18, 2019 - Scope Scope: Glycemic Pharmacist consulted by Dr Hardy on 07/17 for glycemic control and to write orders per [facility] inpatient glycemic control protocol - Objective Weight: 85.9 kg Accuchecks BSG (last 24hrs): 07/17/19 07/17/19 07/17/19 09:50 09:53 10:52 Glucose POC Glucose 62 L* 71 83 07/17/19 07/17/19 07/17/19 15:53 16:15 17:43 Glucose 174 H POC Glucose 173 H 162 H 07/17/19 07/17/19 07/18/19 20:34 23:41 04:09 Glucose POC Glucose 177 H 145 H 120 H 07/18/19 07/18/19 07:13 07:31 Glucose 94 POC Glucose 86 Laboratory Data (last 24hrs): 07/17/19 07/18/19 16:15 07:31 Potassium 4.1 3.7 Carbon Dioxide 17 L 21 Anion Gap 11.0 10.0 Creatinine 3.04 H 2.99 H Est Cr Clr Drug Dosing 23.5 25.2 - Recent Pertinent Medications Outpatient Anti-diabetic Regimen: * Glipizide 10 mg qAM * Victoza 0.6 mg qAM * Actos 30 mg qAM * A1c = 5.6 % 06/2019 The patient is currently receiving: * Basal insulin: NPH 30 units given yesterday afternoon * Correctional Insulin: Novolog Correction per scale ACHS Goal Range: Low 110 mg/dL - High 140 mg/dL Correction Factor: 20 mg/dL/unit * Prandial insulin: Per carb ratio of 1 unit per 7 grams CHO consumed * Oral Agents: None at this time Risk Factors for Insulin Resistance: * Steroids: Decadron 4mg IV given intraop * Recent Surgery: POD 1 * Diet: clear liquid - Assessment & Plan Assessment & Plan: ASSESSMENT: * 64 y/o male admitted s/p prostatectomy * Pt is maintained on oral antidiabetic agents + GLP-1 as an outpatient * These are not recommended for inpatient use d/t drug interactions, changing PO intake, and difficulty titrating for acute hyper/hypoglycemia. ADA recommends re-initiating outpatient oral agents 1-2 days prior to discharge if/when appropriate if they were held on admission. * Will hold oral agents + GLP-1 for admission and utilize SQ basal bolus insulin regimen which is the recommended regimen for inpatient glycemic control. * Will initiate weight based insulin dosing for insulin freddie patient and titrate based on BSG trends. * BSGs have been well controlled with single dose of NPH + Novolog to cover Decadron given in the OR * Will plan to loosen insulin regimen now that Decadron should be wearing off today * Will still utilize basal/bolus insulin due to outpatient regimen with 3 agents PLAN FOR INPATIENT GLYCEMIC CONTROL: * Holding outpatient oral diabetes + GLP-1 medications * Basal insulin - start at lunch today d/t lower BSG this AM * Lantus SQ BID per the following scale: * 7 units for BSG 140 or less * 13 units for BSG > 140 * Bolus insulin - loosen starting with lunch * NovoLog per scale ACHS or Q6hrs while NPO * Goal Range: Low 110 mg/dL - High 140 mg/dL * Correction Factor: 30 mg/dL/unit * Nutritional / Prandial insulin per carb ratio of 1 unit per 10 grams CHO consumed Discharge Recommendations: * A1c = 5.6% on 06/2019 * Goal A1c < 7% for age/comorbidities * Recommend to continue outpatient regimen on discharge, as long as patient not experiencing hypoglycemia at home Thank you.
--- NOTE | 2019-07-18 09:47 | Pharmacy Report ---
Glycemic Control Consultation - Date of Service July 18, 2019 - Scope Scope: Glycemic Pharmacist consulted by Dr Hardy on 07/17 for glycemic control and to write orders per [facility] inpatient glycemic control protocol - Objective Weight: 85.9 kg Accuchecks BSG (last 24hrs): 07/17/19 07/17/19 07/17/19 09:50 09:53 10:52 Glucose POC Glucose 62 L* 71 83 07/17/19 07/17/19 07/17/19 15:53 16:15 17:43 Glucose 174 H POC Glucose 173 H 162 H 07/17/19 07/17/19 07/18/19 20:34 23:41 04:09 Glucose POC Glucose 177 H 145 H 120 H 07/18/19 07/18/19 07:13 07:31 Glucose 94 POC Glucose 86 Laboratory Data (last 24hrs): 07/17/19 07/18/19 16:15 07:31 Potassium 4.1 3.7 Carbon Dioxide 17 L 21 Anion Gap 11.0 10.0 Creatinine 3.04 H 2.99 H Est Cr Clr Drug Dosing 23.5 25.2 - Recent Pertinent Medications Outpatient Anti-diabetic Regimen: * Glipizide 10 mg qAM * Victoza 0.6 mg qAM * Actos 30 mg qAM * A1c = 5.6 % 06/2019 The patient is currently receiving: * Basal insulin: NPH 30 units x 1 given 07/17 PM * Correctional Insulin: Novolog Correction per scale ACHS Goal Range: Low 110 mg/dL - High 140 mg/dL Correction Factor: 20 mg/dL/unit * Prandial insulin: Per carb ratio of 1 unit per 7 grams CHO consumed * Oral Agents: None at this time Risk Factors for Insulin Resistance: * Steroids: Decadron 4 mg given intraop yesterday * Recent Surgery: POD 1 * Diet: clear liquid - Assessment & Plan Assessment & Plan: ASSESSMENT: * PLAN FOR INPATIENT GLYCEMIC CONTROL: * Starting IV insulin infusion per [] (moderate/severe) stress protocol * Goal Range [] - [] mg/dl * In the critical care setting, continuous IV insulin infusion has been shown to be the best method for achieving glycemic targets. * Holding outpatient oral diabetes medications * Basal insulin * Lantus [] units SQ BID * Bolus insulin * NovoLog per scale ACHS or Q6hrs while NPO * Goal Range: Low [] mg/dL - High [] mg/dL * Correction Factor: [] mg/dL/unit * Nutritional / Prandial insulin per carb ratio of 1 unit per [] grams CHO consumed OR PLAN FOR INPATIENT GLYCEMIC CONTROL: * Continuing / Increasing / decreasing Lantus/NPH to [] units SQ BID * Continuing / changing correction factor to [] mg/dl/unit * Continuing / changing carb ratio to 1 unit per [] grams CHO consumed * Continuing / changing goal range to Low [] mg/dL - High [] mg/dL * Please note that the plan above was derived based on current level of insulin resistance and hospital stress. These recommendations are appropriate for inpatient admission only. Plan of care upon discharge will need to be reassessed to avoid potential outpatient hypo/hyperglycemia. Thank you.
[2019-07-18] MEDS ORDERED: SODIUM CHLORIDE 0.9% 1000ML 500 ML IV ONE (11:15)
[2019-07-18] MEDS: OXYCODONE HCL IR 5 MG TAB (IMMEDIATE RELEASE) PO PRN ×2 (11:29→17:13)
[2019-07-18] MEDS: INSULIN GLARGINE SOLOSTAR 100 UNITS/ML 3 ML PEN SC SCH ×2 (12:15→20:19)
[2019-07-19] MEDS: OXYCODONE HCL IR 5 MG TAB (IMMEDIATE RELEASE) PO PRN ×2 (05:58→12:32)
[2019-07-19 06:10] LABS: Basophils # (auto) 0.03 K/uL (0-0.2); Basophils % (auto) 0.3 %; Eosinophils # (auto) 0.44 K/uL (0-0.5); Eosinophils % (auto) 3.9 %; Hematocrit (blood only) 30.5 % (42-52); Hemoglobin 10.2 g/dL (14.0-18.0); Immature Granulocytes # (auto) 0.02 K/uL (0.00-0.02); Immature Granulocytes % (auto) 0.2 %; Lymphocytes # (auto) 0.79 K/uL (1.2-3.4); Lymphocytes % (auto) 7.1 %; Mean Corpuscular Hemoglobin 30.2 pg (25-34); Mean Corpuscular Hgb Conc 33.4 g/dL (32-36); Mean Corpuscular Volume 90.2 fL (80-100); Mean Platelet Volume 11.5 fL (7.4-10.4); Monocytes # (auto) 0.84 K/uL (0.11-0.59); Monocytes % (auto) 7.5 %; Neutrophils # (auto) 9.02 K/uL (1.4-6.5); Platelet Count 138 K/uL (130-400); RDW Coefficient of Variation 15.2 % (11.5-14.5); RDW Standard Deviation 50.3 fL (36.4-46.3); Red Blood Count 3.38 M/uL (4.7-6.1); White Blood Count 11.14 K/uL (4.8-10.8)
[2019-07-19 06:59] LABS: BUN Creatinine Ratio 16.1 (10-20); Calcium 8.6 mg/dl (8.5-10.1); Creatinine Clr Calc Pharmacy 29.8 ml/min; Est GFR (African American) 30.5; Est GFR (Non-African American) 26.3; Potassium 3.5 mmol/L (3.5-5.1)
[2019-07-19] MEDS ORDERED: POTASSIUM CHLORIDE 20 MEQ TABCR PO STA (07:29)
[2019-07-19] MEDS: OXYBUTYNIN CHLORIDE 5 MG TAB PO SCH ×2 (08:07→21:11)
[2019-07-19] MEDS: FENOFIBRATE NANOCRYSTALLIZED 145 MG TABLET PO SCH (08:07)
[2019-07-19] MEDS: carvediloL 12.5 MG TAB PO SCH ×2 (08:07→20:32)
[2019-07-19] MEDS: INSULIN ASPART 100 UNITS/ML 3 ML PEN SC SCH ×4 (08:08→20:29)
--- NOTE | 2019-07-19 08:09 | Hospitalist Progress Note ---
Date of Service July 19, 2019 Assessment & Plan (1) Prostate cancer: (2) S/P prostatectomy: This is a 64 year old male under the direct care of [facility] Urology service with hospitalist internal medicine service following as consult who is on 07/17/19 status post Robotic Laparoscopic Prostatectomy, Lymph Node Dissection, Laparoscopic lysis of adhesions because of outpatient diagnosis of prostate cancer (RALRP, BPLND for [place] 3+4) -continues to ahve luciano -management of MORTEZA drain as per [facility] urology -patient breathing on room air, encouraged to ambulate -discharge planning as per [facility] urology Abdominal Pain -pain attributed to MORTEZA drain -review of 06/09/[address] abdomen/pelvis without contrast with only colonic diverticulosis at that time (3) CKD (chronic kidney disease), stage IV: -Baseline creatinine low to mid 3's -Follows with [facility] nephrology, Dr. Alejandro and there were discussions on possible peritoneal dialysis in future -07/17/19 creatinine 3.4 -after IV fluids, 07/19/19 creatinine is 2.49 -Patient has 07/24/2019 Neph[address] clinic appointment with Dr. 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 has tenderness to palpation of abdomen. MORTEZA drain appears empty with some residual blood. luciano in place. Patient breathing on room air. denies shortness of breath. no dizziness. no headache. no vomiting. able to eat the meals Review of Systems Review of Systems: All systems reviewed & are unremarkable except as noted in HPI & below Physical Exam Constitutional: WD/WN, vitals as above Eyes: PERRL, conjunctivae normal, anicteric sclerae EOM intact bilaterally ENMT: external ear and nose normal, oropharynx normal Respiratory: normal respiratory effort, lungs clear to auscultation Cardiovascular: Rate/Rhythm: regular rate and regular rhythm Gastrointestinal (Abdomen): Inspection/Auscultation: normal bowel sounds Percussion/Palpation: + abdomen tender and abdomen soft MORTEZA drain to left side of abdomen Musculoskeletal: Head/Neck/Chest: normocephalic and head atraumatic Psychiatric: A+Ox3, euthymic affect Genitourinary: luciano Results & Data Vital Signs (Past 12 Hours) Vital Signs Temp Pulse Pulse Resp BP Pulse Ox 07/19/19 07:33 36.6 C 82 18 143/88 H 94 07/19/19 04:09 37.4 C 85 18 131/83 91 07/19/19 00:00 83 07/18/19 23:46 36.7 C 81 18 119/77 92
[2019-07-19] MEDS: INSULIN GLARGINE SOLOSTAR 100 UNITS/ML 3 ML PEN SC SCH ×2 (08:10→20:30)
[2019-07-19] MEDS: LACTATED RINGER'S 1,000 ML IV SCH ×2 (08:13→21:36)
[2019-07-19] MEDS ORDERED: ACETAMINOPHEN 325 MG TAB PO STA (09:41)
[2019-07-19] MEDS ORDERED: ACETAMINOPHEN 325 MG TAB PO PRN (12:08)
--- NOTE | 2019-07-19 13:39 | Urology Progress Note ---
Date of Service July 19, 2019 Assessment & Plan (1) Prostate cancer: See below (2) S/P prostatectomy: 64 yo male POD#2 s/p RALRP, BPLND for [place] 3+[address] Robert Continue to slowly increase activity. We will continue to increase diet. Will monitor closely. Patient is improving slowly. We will continue to follow. Hospitalist is on board and has been working on the patient's chronic medical issues. We will continue to follow. Subjective 64 yo male POD#2 s/p RALRP, BPLND for [place] 3+[address] Robert. Tolerating hydration. Patient with chronic renal and other medical issues. Being followed by hospitalist team. No other major changes. Patient has been ambulating. Is slowly increasing activity. Pain is controlled. No return of bowel function yet. Review of Systems Review of Systems: All systems reviewed & are unremarkable except as noted in HPI & below Physical Exam Physical Exam: General: Alert in no acute distress. HEENT: Normocephalic Atraumatic. Inspection normal. Cranial Nerves 2-12 Grossly intact. Normal inspection of face. Normal inspection of neck. Psychologic: Normal affect. Respiratory: Nonlabored. No use of accessory muscles. No tachypnea or dyspnea. Cardiovascular: No tachycardia Skin: [place] and Dry. No rashes or visible lesions. Extremities/Lymphatics: No edema Abdomen: Mildly distended. Appropriately tender. Wounds clean dry and intact Results & Data Vital Signs (Past 12 Hours) Vital Signs Temp Pulse Resp BP Pulse Ox 07/19/19 11:40 36.7 C 79 18 111/75 92 07/19/19 07:33 36.6 C 82 18 143/88 H 94 07/19/19 04:09 37.4 C 85 18 131/83 91 PG Care Time/CCT Total # of Minutes Spent Total Time Spent with Patient: Total time spent is greater than 50% in coordination of care (as documented) at patient's floor/unit and/or counseling patient:
[2019-07-20 06:06] LABS: Basophils # (auto) 0.02 K/uL (0-0.2); Basophils % (auto) 0.2 %; Eosinophils # (auto) 0.48 K/uL (0-0.5); Eosinophils % (auto) 5.5 %; Hematocrit (blood only) 30.1 % (42-52); Hemoglobin 10.3 g/dL (14.0-18.0); Immature Granulocytes # (auto) 0.02 K/uL (0.00-0.02); Immature Granulocytes % (auto) 0.2 %; Lymphocytes % (auto) 9.2 %; Mean Corpuscular Hemoglobin 30.9 pg (25-34); Mean Corpuscular Hgb Conc 34.2 g/dL (32-36); Mean Corpuscular Volume 90.4 fL (80-100); Mean Platelet Volume 12.5 fL (7.4-10.4); Monocytes # (auto) 0.71 K/uL (0.11-0.59); Monocytes % (auto) 8.2 %; Neutrophils # (auto) 6.68 K/uL (1.4-6.5); Neutrophils % (auto) 76.7 %; Platelet Count 139 K/uL (130-400); RDW Coefficient of Variation 15.1 % (11.5-14.5); RDW Standard Deviation 50.5 fL (36.4-46.3); Red Blood Count 3.33 M/uL (4.7-6.1); White Blood Count 8.71 K/uL (4.8-10.8)
[2019-07-20 06:49] LABS: BUN Creatinine Ratio 16.5 (10-20); Calcium 9.1 mg/dl (8.5-10.1); Creatinine Clr Calc Pharmacy 34.6 ml/min; Est GFR (African American) 36.8; Est GFR (Non-African American) 31.7; Potassium 3.5 mmol/L (3.5-5.1)
[2019-07-20] MEDS ORDERED: POLYETHYLENE (MIRALAX) 17 GM PACK PO PRN (07:30)
[2019-07-20] MEDS ORDERED: POLYETHYLENE (MIRALAX) 17 GM PACK PO STA (07:30)
--- NOTE | 2019-07-20 07:36 | Hospitalist Progress Note ---
Date of Service July 20, 2019 Assessment & Plan (1) Prostate cancer: (2) S/P prostatectomy: This is a 64 year old male under the direct care of [facility] Urology service with hospitalist internal medicine service following as consult who is on 07/17/19 status post Robotic Laparoscopic Prostatectomy, Lymph Node Dissection, Laparoscopic lysis of adhesions because of outpatient diagnosis of prostate cancer (RALRP, BPLND for [place] 3+4) -continues to have luciano -management of MORTEZA drain as per [facility] urology -discharge planning as per [facility] urolog Abdominal Pain -pain attributed to MORTEZA drain -review of 06/09/[address] abdomen/pelvis without contrast with only colonic diverticulosis at that time -bowel regimen to help resolve constipation -encourage ambulation to improve bowel motility, PT evaluation while in the hospital -X ray abdomen and pelvis ordered for 07/20/19 (3) CKD (chronic kidney disease), stage IV: -Baseline creatinine low to mid 3's -Follows with [facility] nephrology, Dr. Alejandro and there were discussions on possible peritoneal dialysis in future -07/17/19 creatinine 3.4 -creatinine downtrend with IV fluids -07/20/19 creatinine is 2.13 -stopped continuous IV fluids on 07/20/19 -Patient has 07/24/2019 [address] clinic appointment with Dr. Alejandro in [facility] (4) DM type 2 (diabetes mellitus, type 2): TYPE 2 DIABETES MELLITUS WITHOUT CHCF CURRENT USE OF INSULIN -Hgb A1c 5.6 06/2019 -Home oral agents and Victoza on hold -Glycemic pharmacy consulted by urology service for inpatient glucose management (5) HTN (hypertension): -continue carvedilol 12.5 mg BID (6) Anemia: -Hemoglobin is stable -Hemogoblin 10.6 on 07/18/19 -Hemoglobin 10.2 on 07/19/19 -Hemoglobin is 10.3 on 07/20/19 (7) DVT prophylaxis: -Teds/SCDs, encourage ambulation Subjective Patient seen and examined laying in bed. not in acute distress. but reports somewhat more abdominal pain today. no vomiting. reports constipation. reports yesterday he was able to ambulate from bed to chair. no dizziness. no lightheadedness. breathing on room air. no shortness of breath. When examined this AM, patient on IV fluids. remains to have MORTEZA drain. remains to have luciano. Discussed with patient and nursing staff about bowel regimen to help resolve constipation, order abdominal/pelvic X ray, stop IV fluids, and encourage ambulation Review of Systems Review of Systems: All systems reviewed & are unremarkable except as noted in HPI & below Physical Exam Constitutional: WD/WN, vitals as above Eyes: PERRL, conjunctivae normal, anicteric sclerae EOM intact bilaterally ENMT: external ear and nose normal, oropharynx normal Respiratory: normal respiratory effort, lungs clear to auscultation Cardiovascular: Rate/Rhythm: regular rate and regular rhythm Gastrointestinal (Abdomen): Inspection/Auscultation: normal bowel sounds P ercussion/Palpation: + abdomen tender and abdomen soft Musculoskeletal: Head/Neck/Chest: normocephalic and head atraumatic Psychiatric: A+Ox3, euthymic affect Results & Data Vital Signs (Past 12 Hours) Vital Signs Temp Pulse Resp BP BP Pulse Ox 07/20/19 07:22 37.3 C 79 18 156/90 H 95 07/20/19 04:52 36.9 C 80 20 139/82 95 07/19/19 22:36 36.4 C L 86 20 122/82 93 07/19/19 19:59 36.7 C 91 H 18 133/90 95
[2019-07-20] MEDS ORDERED: OXYCODONE HCL IR 5 MG TAB (IMMEDIATE RELEASE) PO PRN (07:38)
[2019-07-20] MEDS ORDERED: HYDROmorphone INJ 0.5 MG/0.5 ML SYR IV PRN (07:38)
[2019-07-20] MEDS: carvediloL 12.5 MG TAB PO SCH ×2 (07:53→22:14)
[2019-07-20] MEDS: FENOFIBRATE NANOCRYSTALLIZED 145 MG TABLET PO SCH (07:53)
[2019-07-20] MEDS: INSULIN ASPART 100 UNITS/ML 3 ML PEN SC SCH ×4 (07:54→22:13)
[2019-07-20] MEDS: INSULIN GLARGINE SOLOSTAR 100 UNITS/ML 3 ML PEN SC SCH ×2 (07:55→22:14)
[2019-07-20] MEDS: SENNA 8.6 MG TAB PO SCH (07:58)
[2019-07-20] MEDS: DOCUSATE SODIUM 100 MG CAP PO SCH ×2 (07:58→22:15)
[2019-07-20] MEDS: OXYBUTYNIN CHLORIDE 5 MG TAB PO SCH ×2 (08:25→22:15)
--- NOTE | 2019-07-20 09:25 | XRay Report ---
XR abdomen 2V w PA chest HISTORY: 64 years-old Male recent prostate surgery, lysis of adhesions acute generalized abdominal p ain with history of recent prostate surgery COMPARISON: Chest radiograph 07/08/2019 TECHNIQUE: PA view of the chest with erect and supine views of the abdomen FINDINGS: Cardiac silhouette is mildly enlarged. Linear subsegmental right perihilar and bibasilar opacities collins ggest atelectasis. No pneumothorax, pleural effusion or overt pulmonary edema. Mild degenerative powers ges of the shoulders and spine. Bowel gas pattern is nonobstructive. Moderate fecal retention. Small volume pneumoperitoneum noted wi thin the abdominal right upper quadrant. Catheter projects over the central pelvis. Additional linear metallic density structure projects over the lower pelvis. Small radiodensities measuring up to 2 mm of the abdominal aorta reflect nephrolithiasis without ureteral calculi. IMPRESSION: 1. Mild right perihilar and bibasilar atelectasis. 2. Small volume pneumoperitoneum, likely postsurgical. Correlate with patient history. 3. Nonobstructive bowel gas pattern with moderate fecal retention. 4. Suggestion of right nephrolithiasis without ureteral calculi identified. The above report was generated using voice recognition software. It may contain grammatical, syntax o r spelling errors. Electronically signed by: Chau oRdriguez M.D. 07/20/2019 9:24 AM
--- NOTE | 2019-07-20 14:19 | Urology Progress Note ---
Date of Service July 20, 2019 Assessment & Plan (1) Prostate cancer: See below (2) S/P prostatectomy: 64 yo male POD#3 s/p RALRP, BPLND for [place] 3+[address] Robert Very slowly increase activity. Discussed need to ambulate. Discussed need to increase activity overall. Discussed need for physical therapy patient is unable. We will continue to increase diet. Will monitor closely. Patient is improving slowly. We will continue to follow. Hospitalist is on board and has been working on the patient's chronic medical issues. We will continue to follow. Subjective 64 yo male POD#3 s/p RALRP, BPLND for [place] 3+[address] Robert. Tolerating hydration. Patient with chronic renal and other medical issues. Being followed by hospitalist team. No other major changes. Patient has been ambulating. Is slowly increasing activity. Patient has only ambulated from bed to chair. Has not ambulated in halls. Has not attempted to utilize walker. Is very unsteady on feet per patient. Has discussed physical therapy but has not participated Pain is controlled. No return of bowel function yet. Review of Systems Review of Systems: All systems reviewed & are unremarkable except as noted in HPI & below Physical Exam Physical Exam: General: Alert in no acute distress. Advanced age HEENT: Normocephalic Atraumatic. Inspection normal. Cranial Nerves 2-12 Grossly intact. Normal inspection of face. Normal inspection of neck. Psychologic: Normal affect. Respiratory: Nonlabored. No use of accessory muscles. No tachypnea or dyspnea. Cardiovascular: No tachycardia Skin: [place] and Dry. No rashes or visible lesions. Extremities/Lymphatics: Mild edema Abdomen: Appropriately tender. Wounds clean dry and intact. Results & Data Vital Signs (Past 12 Hours) Vital Signs Temp Pulse Pulse Resp BP Pulse Ox 07/20/19 11:19 36.8 C 84 18 115/76 96 07/20/19 08:00 70 07/20/19 07:22 37.3 C 79 18 156/90 H 95 07/20/19 04:52 36.9 C 80 20 139/82 95 PG Care Time/CCT Total # of Minutes Spent Total Time Spent with Patient: Total time spent is greater than 50% in coordination of care (as documented) at patient's floor/unit and/or counseling patient:
[2019-07-21 07:06] LABS: Basophils # (auto) 0.03 K/uL (0-0.2); Basophils % (auto) 0.4 %; Eosinophils # (auto) 0.63 K/uL (0-0.5); Eosinophils % (auto) 7.6 %; Hematocrit (blood only) 29.4 % (42-52); Hemoglobin 10.1 g/dL (14.0-18.0); Immature Granulocytes # (auto) 0.02 K/uL (0.00-0.02); Immature Granulocytes % (auto) 0.2 %; Lymphocytes # (auto) 0.92 K/uL (1.2-3.4); Mean Corpuscular Hemoglobin 30.5 pg (25-34); Mean Corpuscular Hgb Conc 34.4 g/dL (32-36); Mean Corpuscular Volume 88.8 fL (80-100); Mean Platelet Volume 12.1 fL (7.4-10.4); Monocytes # (auto) 0.54 K/uL (0.11-0.59); Monocytes % (auto) 6.5 %; Neutrophils # (auto) 6.19 K/uL (1.4-6.5); Neutrophils % (auto) 74.3 %; Platelet Count 135 K/uL (130-400); RDW Coefficient of Variation 14.8 % (11.5-14.5); RDW Standard Deviation 48.5 fL (36.4-46.3); Red Blood Count 3.31 M/uL (4.7-6.1); White Blood Count 8.33 K/uL (4.8-10.8)
[2019-07-21 07:32] LABS: BUN Creatinine Ratio 15.7 (10-20); Calcium 9.3 mg/dl (8.5-10.1); Creatinine Clr Calc Pharmacy 32.9 ml/min; Est GFR (African American) 35.4; Est GFR (Non-African American) 30.5; Potassium 3.5 mmol/L (3.5-5.1)
[2019-07-21] MEDS ORDERED: MAGNESIUM HYDROXIDE SUSP 30 ML UDC PO ONE (07:34)
--- NOTE | 2019-07-21 07:39 | Hospitalist Progress Note ---
Date of Service July 21, 2019 Assessment & Plan (1) Prostate cancer: This is a 64 year old male under the direct care of [facility] Urology service with hospitalist internal medicine service following as consult who is on 07/17/19 status post Robotic Laparoscopic Prostatectomy, Lymph Node Dissection, Laparoscopic lysis of adhesions because of outpatient diagnosis of prostate cancer (RALRP, BPLND for [place] 3+4) (2) S/P prostatectomy: -continues to have luciano -management of MORTEZA drain as per [facility] urology -discharge planning as per [facility] urology; hospitalist consult service placed case management request to assist urology with discharge planning Abdominal Pain Cosntipation -pain attributed to MORTEZA drain -review of 06/09/[address] abdomen/pelvis without contrast with only colonic diverticulosis at that time -X ray abdomen and pelvis ordered for 07/20/19 -increased bowel regimen to help resolve constipation -narcotics pain medication have been modified over the weekend to reduce possibility of ileus. and abdominal pain seems better controlled by 07/21/19, -encourage ambulation to improve bowel motility -patient able to ambulate with walker on 07/20/18 down hallway but he does not use walker prior to prostatectomy -PT evaluation while in the hospital is pending (3) CKD (chronic kidney disease), stage IV: -Baseline creatinine low to mid 3's -Follows with [facility] nephrology, Dr. Alejandro and there were discussions on possible peritoneal dialysis in future -07/17/19 creatinine 3.4 -creatinine downtrend with IV fluids -07/20/19 creatinine is 2.13 -stopped continuous IV fluids on 07/20/19 -Patient has 07/24/2019 [address]phrology clinic appointment with Dr. Alejandro in [facility] (4) DM type 2 (diabetes mellitus, type 2): TYPE 2 DIABETES MELLITUS WITHOUT SHELL ASSEMBLER CURRENT USE OF INSULIN -Hgb A1c 5.6 06/2019 -Home oral agents and Victoza on hold -Glycemic pharmacy consulted by urology service for inpatient glucose management (5) HTN (hypertension): -continue carvedilol 12.5 mg BID (6) Anemia: -Hemoglobin is stable -Hemogoblin 10.6 on 07/18/19; 10.2 on 07/19/19; 10.3 on 07/20/19; 10.1 on 07/21/19 (7) DVT prophylaxis: -Teds/SCDs, encourage ambulation Subjective Patient generally sedentary since urology procedure on because of abdominal discomfort. Abdomen pain appears improved today. However, patient still has not had bowel movement since procedure day. Patient continues to have MORTEZA drain that have not been removed by urology service yet. Patient remains on luciano. Patient was able to ambulate with walker in hallway. Patient reports that he does not use walker at home. Patient able to sit up on his own for physical exam but takes some effort for him to sit up on the bed Review of Systems Review of Systems: All systems reviewed & are unremarkable except as noted in HPI & below Physical Exam Constitutional: WD/WN, vitals as above Eyes: PERRL, conjunctivae normal, anicteric sclerae EOM intact bilaterally ENMT: external ear and nose normal, oropharynx normal Respiratory: normal respiratory effort, lungs clear to auscultation Cardiovascular: Rate/Rhythm: regular rate and regular rhythm Gastrointestinal (Abdomen): Inspection/Auscultation: normal bowel sounds Percussion/Palpation: + abdomen tender Musculoskeletal: Head/Neck/Chest: normocephalic and head atraumatic Psychiatric: A+Ox3, euthymic affect Results & Data Vital Signs (Past 12 Hours) Vital Signs Temp Pulse Pulse Resp BP Pulse Ox 07/21/19 07:00 56 L 07/21/19 03:10 36.8 C 78 18 149/86 H 95 07/21/19 00:00 78 07/20/19 23:10 37.1 C 74 18 132/82 91
[2019-07-21] MEDS: INSULIN ASPART 100 UNITS/ML 3 ML PEN SC SCH ×4 (08:11→21:54)
[2019-07-21] MEDS: OXYBUTYNIN CHLORIDE 5 MG TAB PO SCH ×2 (08:22→21:54)
[2019-07-21] MEDS: carvediloL 12.5 MG TAB PO SCH ×2 (08:23→21:55)
[2019-07-21] MEDS: DOCUSATE SODIUM 100 MG CAP PO SCH ×2 (08:24→21:54)
[2019-07-21] MEDS: FENOFIBRATE NANOCRYSTALLIZED 145 MG TABLET PO SCH (08:25)
[2019-07-21] MEDS: INSULIN GLARGINE SOLOSTAR 100 UNITS/ML 3 ML PEN SC SCH ×2 (08:25→21:53)
[2019-07-21] MEDS: SENNA 8.6 MG TAB PO SCH (09:48)
--- NOTE | 2019-07-21 09:58 | Operative Report ---
DATE OF OPERATION: 07/17/2019 PREOPERATIVE DIAGNOSIS: [place] 3+4 adenocarcinoma of the prostate. POSTOPERATIVE DIAGNOSES: [place] 3+4 adenocarcinoma of the prostate, extensive intra-abdominal adhesions. PROCEDURE: Laparoscopic extended lysis of adhesions (greater than 45 minutes), robot-assisted laparoscopic radical retropubic prostatectomy, bilateral pelvic lymph node dissection. SURGEON: Hesham Robert MD ELECTRONIC GAMING DEVICE SUPERVISOR: AWAIS Stewart. ANESTHESIA: General anesthesia with endotracheal intubation plus local at port sites. ESTIMATED BLOOD LOSS: 150 mL. SPECIMENS SENT TO PATHOLOGY: Periprostatic fat, prostate, and seminal vesicles, right and left obturator lymph nodes. DRAINS LEFT IN PLACE: Include a 20-Chadian coude catheter per urethra with 30 mL of sterile water in the balloon and #10 MORTEZA drain in the left lower quadrant. FINDINGS: Copious intra-abdominal adhesions, both within the abdomen and the pelvis requiring extensive laparoscopic lysis of adhesions prior to inability to perform prostatectomy. No evidence of any bowel injury. The posterior bladder wall distraction at the site of the anastomosis with a mild to moderate leak due to inability to drop the bladder to the urethra due to copious scarring as noted above. Please see below for further details. BRIEF HISTORY: Mr. Cooper is a 64-year-old male, quite comorbid who is here today for a robotic prostatectomy to manage his [place] 3+4 adenocarcinoma of the prostate. He was previously seen by Dr. Saini and was referred to myself due to refusal to consider radiation therapy. Please see H and P for further details. He is covered with intravenous cephalosporins for antibiotic coverage and SCDs were used for DVT prophylaxis as well as subcutaneous heparin. Risks and benefits of intervention have been discussed with the patient at length who vocalizes good understanding of the treatment plan as well as his . DESCRIPTION OF PROCEDURE: The patient was properly identified and brought into the operative suite after identification of appropriate consent on the chart. General anesthesia with endotracheal intubation was initiated and the patient was prepped and draped in standard fashion for this procedure. time signal wirer-out procedure was followed. All port sites were anesthetized with local prior to incision. A supraumbilical incision was made and a 12 mm port was advanced into the abdomen under direct visualization using a 0-degree laparoscope. Within the abdomen at the site of the patient's prior ruptured appendectomy scar, copious amounts of scarring was noted to be present on the patient's right hand side. Two left-sided 8 mm robotic ports were able to be placed. These were used along with a 5 mm laparoscope to commence lysis of adhesions toward the right hand side. This was continued in a stepwise fashion using cold scissors and caution until sufficient space was available for placement of the 12 mm and 8 mm right-sided assistant professor of nursing ports as well as the 5 mm port. After this was complete, the surgical field was ensured to be well freed in the mid abdomen of any adhesions or bowel. After this was completed, the robot was brought in and docked and 0 degree lens was used to address the pelvis. Copious adhesions were also present within the pelvis and within the pouch of Palomo, which was completely obliterated with scar loops of bowel. These were meticulously freed without evidence of injury until the bowel was able to be removed from behind the bladder to allow for adequate dissection and mobilization. After this was complete, the surgical dissection into the space of Retzius was commenced. Bladder was dropped down to the level of the pubic bone and again scarring was typically encountered throughout the case until the true pelvis was entered. Bladder was dropped and copious amounts of periprostatic fat were dissected free and sent for pathologic analysis. Endopelvic fascia was sharply entered on both sides and dissected down to the level of the apex of the prostate. The patient was noted to have a thick dorsal venous complex, which was controlled using an 0 Vicryl suture on a CT1 needle. After this was complete, a 30-degree down lens was used to dissect the bladder neck free. Once this was complete, the excellent aperture bladder neck which was noted to be a constant was appreciated. The posterior prostatic dissection was completed and the prosthetic and inferior vesicle pedicles were taken using a vessel sealer. Dissection was carried through level of the apex lateral to the prostate gland using vessel sealer and scissors as necessary. After this was completed, attention was turned to the dorsal vascular bundle which was divided and the urethra was skeletonized. The patient was noted to have quite a deep urethra with the apex of the prostate protruding into the pelvic floor musculature. This was divided and rectourethralis fibers were divided. Prostate was able to be delivered up into the abdomen. The port was placed within an EndoCatch bag for retrieval at the end of the case. Attention was then turned to the obturator lymph node packets on both sides which were dissected free. Again, unfortunately copious scarring was encountered. Weck clips and monopolar cautery were used for control of lymphatics and blood vessels as necessary. The boundaries of dissection were the external iliac vein, the pelvic sidewall and the obturator nerve. These were sent separately within an additional bag for pathologic analysis. FloSeal tissue sealant was placed within the prostatic bed and within the obturator fossa on both sides for additional hemostasis. Attention was then turned to the pelvis where a double armed V-Loc suture was used to create a running anastomosis between the bladder neck and the urethra. Unfortunately, on 3 different attempts to bring the posterior bladder neck down to the level of the urethra, the bladder neck tissue tore. After careful inspection of the parameters of the patient, dissection was felt that the posterior and lateral aspects of the bladder due to copious scarring simply did not afford adequate mobility for completely bring the urethra and bladder down. This was not felt to be likely to improve even with copious dissection which remained at risk of devascularizing the involved structures. Therefore, the posterior bladder neck was brought down as far as possible to the urethra and the anastomosis was continued. This was assisted by placing a 20-Chadian coude catheter into the bladder with 30 mL of sterile water in the balloon. This was used by the assistant professor of nursing to place inferior traction on the bladder and bring the urethra and bladder neck was closed together as possible. In the anterior and lateral locations, relatively good closure was noted. On testing of the anastomosis, a relatively copious leak was present at first. The perivesical tissues and periurethral tissues were used to bolster the tissue was felt to leak the most with some improvement in the volume of leakage. This was felt to be adequate for the purposes of closure with a plan for an extended Jett catheter drainage and cystogram imaging prior to a trial of void. Fourth arm was removed and a #10 MORTEZA drain was brought in via the fourth arm port. This was placed within the confines of the pelvis while avoiding placing it directly over the anastomosis. Strings to the EndoCatch bag were brought out through the supraumbilical incision and robotic instruments were removed and the robot was de-docked. Abdomen was desufflated and supraumbilical incision was enlarged over the 12 mm ports sufficiently to allow for easy removal of the specimen bags. Fascia was closed at the supraumbilical incision after removal of excess carbon dioxide gas from the abdomen using 0 Vicryl on a UR-5 needle. A 2-0 silk was used to secure the MORTEZA drain in place and where the fascia was palpable was closed using a 0 Vicryl suture on a UR-6 needle. Skin incisions were closed using 4-0 Monocryl and Dermabond. Anesthesia was reversed. The patient was transferred to recovery room in stable condition. FOLLOWUP CARE: The patient will be admitted to the floor for standard postoperative management. I attest to the content of the Intraoperative Record and any orders documented therein. Any exceptions are noted below. MTDD
--- NOTE | 2019-07-21 11:09 | Urology Progress Note ---
Date of Service July 21, 2019 Subjective Postop day #4 radical prostatectomy He is afebrile vital signs are stable No complaints offered Abdomen is soft positive bowel sounds positive flatus no bowel movement Extremities without calf pain or edema Urine output adequate MORTEZA drainage 90cc last 24 hoursAssessment Hematocrit 29.4 creatinine 2.2 Assessment Doing well post prostatectomy will continue current therapy Results & Data Vital Signs (Past 12 Hours) Vital Signs Temp Pulse Pulse Resp BP Pulse Ox 07/21/19 08:20 36.5 C 76 14 136/86 96 07/21/19 07:00 56 L 07/21/19 03:10 36.8 C 78 18 149/86 H 95 07/21/19 00:00 78 07/20/19 23:10 37.1 C 74 18 132/82 91 PG Care Time/CCT Total # of Minutes Spent Total Time Spent with Patient: Total time spent is greater than 50% in coordination of care (as documented) at patient's floor/unit and/or counseling patient:
[2019-07-22 06:43] LABS: Basophils # (auto) 0.02 K/uL (0-0.2); Basophils % (auto) 0.2 %; Eosinophils # (auto) 0.67 K/uL (0-0.5); Eosinophils % (auto) 8.3 %; Hematocrit (blood only) 30.2 % (42-52); Hemoglobin 10.1 g/dL (14.0-18.0); Immature Granulocytes # (auto) 0.01 K/uL (0.00-0.02); Immature Granulocytes % (auto) 0.1 %; Lymphocytes # (auto) 1.01 K/uL (1.2-3.4); Lymphocytes % (auto) 12.6 %; Mean Corpuscular Hemoglobin 29.9 pg (25-34); Mean Corpuscular Hgb Conc 33.4 g/dL (32-36); Mean Corpuscular Volume 89.3 fL (80-100); Mean Platelet Volume 11.9 fL (7.4-10.4); Monocytes # (auto) 0.61 K/uL (0.11-0.59); Monocytes % (auto) 7.6 %; Neutrophils # (auto) 5.72 K/uL (1.4-6.5); Neutrophils % (auto) 71.2 %; Platelet Count 152 K/uL (130-400); RDW Coefficient of Variation 14.8 % (11.5-14.5); RDW Standard Deviation 48.5 fL (36.4-46.3); Red Blood Count 3.38 M/uL (4.7-6.1); White Blood Count 8.04 K/uL (4.8-10.8)
[2019-07-22 07:20] LABS: BUN Creatinine Ratio 17.5 (10-20); Calcium 9.7 mg/dl (8.5-10.1); Creatinine Clr Calc Pharmacy 32.1 ml/min; Est GFR (African American) 34.1; Est GFR (Non-African American) 29.4; Potassium 3.6 mmol/L (3.5-5.1)
--- NOTE | 2019-07-22 07:59 | Hospitalist Progress Note ---
Date of Service July 22, 2019 Assessment & Plan (1) Prostate cancer: This is a 64 year old male under the direct care of [facility] Urology service with hospitalist internal medicine service following as consult who is on 07/17/19 status post Robotic Laparoscopic Prostatectomy, Lymph Node Dissection, Laparoscopic lysis of adhesions because of outpatient diagnosis of prostate cancer (RALRP, BPLND for [place] 3+4) (2) S/P prostatectomy: -continues to have luciano -management of MORTEZA drain as per [facility] urology -discharge planning as per [facility] urology; hospitalist consult service placed case management request to assist urology with discharge planning Abdominal Pain Cosntipation -pain attributed to MORTEZA drain -review of 06/09/[address] abdomen/pelvis without contrast with only colonic diverticulosis at that time -X ray abdomen and pelvis ordered for 07/20/19 -narcotics pain medication have been modified over the weekend to help alleviate constipation. and abdominal pain seems better controlled by 07/21/19. patient made bowel movements for first time since procedure on 07/21/19 -Patient has been encouraged to do more walking to help with bowel movements. 07/22/19: He reports 2 days ago he was able to do some walking out of his room with a walker around the hallway. He reports that without a walker, he has been able to walk from bedside to the chair. However he does not use a walker at home and he does not think that at this time, he that would be able to walk the hallway without a walker. -PT evaluation had been ordered, regulatory manager had seen the patient on 07/21/19 (3) CKD (chronic kidney disease), stage IV: -Baseline creatinine low to mid 3's -Follows with [facility] nephrology, Dr. Alejandro and there were discussions on possible peritoneal dialysis in future -07/17/19 creatinine 3.4 -creatinine downtrend with IV fluids -07/20/19 creatinine is 2.13 -stopped continuous IV fluids on 07/20/19 -Patient has 07/24/2019 Nephrology clinic appointment with Dr. Alejandro in [facility] (4) DM type 2 (diabetes mellitus, type 2): TYPE 2 DIABETES MELLITUS WITHOUT PATTERNMAKER HAND CURRENT USE OF INSULIN -Hgb A1c 5.6 06/2019 -Home oral agents and Victoza on hold -Glycemic pharmacy consulted by urology service for inpatient glucose management (5) HTN (hypertension): -continue carvedilol 12.5 mg BID (6) Anemia: -Hemoglobin is stable -Hemogoblin 10.6 on 07/18/19; 10.2 on 07/19/19; 10.3 on 07/20/19; 10.1 on 07/21 and on 07/22/18 Disposition: at this time, patient continues to be under the direct care of [facility] urology service, medicine hospitalist following as consult, if patient remains in the hospital going into 07/23/19 then my hospitalist colleague Dr. Ho will follow the patient as hospitalist consult starting on 07/23/19 (7) DVT prophylaxis: -Teds/SCDs, encourage ambulation Subjective Patient seen and examined while sitting up in the chair. Patient made bowel movements yesterday. Patient does not appear to have any acute abdomen pain. continues to have MORTEZA drain to left side of abdomen. Continues to have luciano. Patient breathing on room air. No shortness of breath. No chest discomforts. Patient is encouraged to do more ambulation. He reports 2 days ago he was able to do some walking out of his room with a walker around the hallway. He reports that without a walker, he has been able to walk from bedside to the chair. However he does not use a walker at home and he does not think that at this time, he that would be able to walk the hallway without a walker. Review of Systems Review of Systems: All systems reviewed & are unremarkable except as noted in HPI & below Physical Exam Constitutional: WD/WN, vitals as above Eyes: PERRL, conjunctivae normal, anicteric sclerae EOM intact bilaterally ENMT: external ear and nose normal, oropharynx normal Respiratory: normal respiratory effort, lungs clear to auscultation Cardiovascular: Rate/Rhythm: regular rate and regular rhythm Gastrointestinal (Abdomen): Inspection/Auscultation: normal bowel sounds Percussion/Palpation: abdomen soft Musculoskeletal: Head/Neck/Chest: normocephalic and head atraumatic Psychiatric: A+Ox3, euthymic affect Results & Data Vital Signs (Past 12 Hours) Vital Signs Temp Pulse Pulse Resp BP BP Pulse Ox 07/22/19 07:00 64 07/22/19 04:01 36.9 C 69 18 123/73 94 07/21/19 23:42 36.8 C 78 20 119/80 96 07/21/19 22:20 83 07/21/19 20:07 36.8 C 77 18 122/82 96
[2019-07-22] MEDS: INSULIN ASPART 100 UNITS/ML 3 ML PEN SC SCH ×2 (08:10→12:09)
[2019-07-22] MEDS: SENNA 8.6 MG TAB PO SCH (08:11)
[2019-07-22] MEDS: DOCUSATE SODIUM 100 MG CAP PO SCH (08:11)
[2019-07-22] MEDS: OXYBUTYNIN CHLORIDE 5 MG TAB PO SCH (08:11)
[2019-07-22] MEDS: FENOFIBRATE NANOCRYSTALLIZED 145 MG TABLET PO SCH (08:11)
[2019-07-22] MEDS: INSULIN GLARGINE SOLOSTAR 100 UNITS/ML 3 ML PEN SC SCH (08:12)
[2019-07-22] MEDS: carvediloL 12.5 MG TAB PO SCH (08:13)
--- NOTE | 2019-07-22 09:26 | Urology Progress Note ---
Date of Service July 22, 2019 Assessment & Plan (1) Prostate cancer: A/P 64 yo male POD#5 s/p RALRP, BPLND. Bladder neck leak - 3 weeks of luciano and cystogram arranged as OP. Appointments in place, findings d/w patient. MORTEZA output good of late. Cr down below baseline. Patient ready to go home - DC MORTEZA, leg bag training, DC home, RX in place. DC instructions reviewed with patient. Subjective 64 yo male POD#5 s/p RALRP. Slow progress with activity. Currently OOBTC. Ambulatory. Feels ready to go home, anxious to leave. Cr doing well, MORTEZA drainage at a minimum, Rx sent to [facility] last week. Events noted. Review of Systems Constitutional: no fever and no chills Eyes: no diplopia Ear, Nose, Mouth, Throat: no ear trauma Respiratory: no hemoptysis Cardiovascular: no chest pain Integumentary: no acne and no boil Neurologic: no paralysis Psychiatric: no hopelessness Allergy / Immunological: no tongue swelling Physical Exam Constitutional: well developed and well nourished; no acute distress Eyes: eyes not dysmorphic ENMT: Ears: no external ear abnormality Neck: trachea midline; no anterior neck swelling Respiratory: no respiratory distress and does not use accessory muscles Cardiovascular: Vessels: radial pulses present Gastrointestinal (Abdomen): Inspection/Auscultation: abdomen not distended Percussion/Palpation: abdomen soft; abdomen nontender inc c/d/i Musculoskeletal: Head/Neck/Chest: normocephalic and neck supple Skin: normal turgor Neurologic: awake; not obtunded Psychiatric: Orientation: oriented x 3 Lymphatic: no lymphadenopathy Results & Data Vital Signs (Past 12 Hours) Vital Signs Temp Pulse Pulse Resp BP BP Pulse Ox 07/22/19 07:00 64 07/22/19 04:01 36.9 C 69 18 123/73 94 07/21/19 23:42 36.8 C 78 20 119/80 96 07/21/19 22:20 83 Laboratory Results Laboratory Results - last 48 hr 07/20/19 07/20/19 07/20/19 11:44 16:18 20:24 WBC RBC Hgb Hct MCV MCH MCHC RDW Std Deviation RDW Coeff of Rich Plt Count MPV Immature Gran % (Auto) Neut % (Auto) Lymph % (Auto) [place] % (Auto) Eos % (Auto) Baso % (Auto) Immature Gran # (Auto) Neut # (Auto) Lymph # (Auto) [place] # (Auto) Eos # (Auto) Baso # (Auto) Sodium Potassium Chloride Carbon Dioxide Anion Gap BUN Creatinine Est Cr Clr Drug Dosing Est GFR ( Amer) Est GFR (Non-Af Amer) BUN/Creatinine Ratio Glucose POC Glucose 150 H 148 H 180 H Calcium 07/21/19 07/21/19 07/21/19 06:49 06:49 07:30 WBC 8.33 RBC 3.31 L Hgb 10.1 L Hct 29.4 L MCV 88.8 MCH 30.5 MCHC 34.4 RDW Std Deviation 48.5 H RDW Coeff of Rich 14.8 H Plt Count 135 MPV 12.1 H Immature Gran % (Auto) 0.2 Neut % (Auto) 74.3 Lymph % (Auto) 11.0 [place] % (Auto) 6.5 Eos % (Auto) 7.6 Baso % (Auto) 0.4 Immature Gran # (Auto) 0.02 Neut # (Auto) 6.19 Lymph # (Auto) 0.92 L [place] # (Auto) 0.54 Eos # (Auto) 0.63 H Baso # (Auto) 0.03 Sodium 139 Potassium 3.5 Chloride 107 Carbon Dioxide 25 Anion Gap 7.0 BUN 35 H Creatinine 2.20 H Est Cr Clr Drug Dosing 32.9 Est GFR ( Amer) 35.4 Est GFR (Non-Af Amer) 30.5 BUN/Creatinine Ratio 15.7 Glucose 93 POC Glucose 101 H Calcium 9.3 07/21/19 07/21/19 07/21/19 11:23 16:27 20:23 WBC RBC Hgb Hct MCV MCH MCHC RDW Std Deviation RDW Coeff of Rich Plt Count MPV Immature Gran % (Auto) Neut % (Auto) Lymph % (Auto) [place] % (Auto) Eos % (Auto) Baso % (Auto) Immature Gran # (Auto) Neut # (Auto) Lymph # (Auto) [place] # (Auto) Eos # (Auto) Baso # (Auto) Sodium Potassium Chloride Carbon Dioxide Anion Gap BUN Creatinine Est Cr Clr Drug Dosing Est GFR ( Amer) Est GFR (Non-Af Amer) BUN/Creatinine Ratio Glucose POC Glucose 238 H 117 H 163 H Calcium 07/22/19 07/22/19 07/22/19 06:29 06:29 07:14 WBC 8.04 RBC 3.38 L Hgb 10.1 L Hct 30.2 L MCV 89.3 MCH 29.9 MCHC 33.4 RDW Std Deviation 48.5 H RDW Coeff of Rich 14.8 H Plt Count 152 MPV 11.9 H Immature Gran % (Auto) 0.1 Neut % (Auto) 71.2 Lymph % (Auto) 12.6 [place] % (Auto) 7.6 Eos % (Auto) 8.3 Baso % (Auto) 0.2 Immature Gran # (Auto) 0.01 Neut # (Auto) 5.72 Lymph # (Auto) 1.01 L [place] # (Auto) 0.61 H Eos # (Auto) 0.67 H Baso # (Auto) 0.02 Sodium 138 Potassium 3.6 Chloride 106 Carbon Dioxide 25 Anion Gap 7.0 BUN 40 H Creatinine 2.27 H Est Cr Clr Drug Dosing 32.1 Est GFR ( Amer) 34.1 Est GFR (Non-Af Amer) 29.4 BUN/Creatinine Ratio 17.5 Glucose 87 POC Glucose 93 Calcium 9.7 PG Care Time/CCT Total # of Minutes Spent Total Time Spent with Patient: Total time spent is greater than 50% in coordination of care (as documented) at patient's floor/unit and/or counseling patient:
--- NOTE | 2019-07-22 09:27 | Discharge Summary ---
Date of Service July 22, 2019 Admission HPI Per Admitting Provider Comorbid patient with CAP for RALRP. See H&P for further details. Admission Exam (Per Admitting) Constitutional well developed and well nourished; no acute distress Eyes eyes not dysmorphic ENMT Ears: no external ear abnormality Neck trachea midline; no anterior neck swelling Respiratory no respiratory distress and does not use accessory muscles Cardiovascular Vessels: radial pulses present Gastrointestinal (Abdomen) Inspection/Auscultation: abdomen not distended Percussion/Palpation: abdomen soft; abdomen nontender Musculoskeletal Head/Neck/Chest: normocephalic and neck supple Skin normal turgor Neurologic awake; not obtunded Psychiatric Orientation: oriented x 3 Lymphatic no lymphadenopathy Discharge Data Consultations 07/17/19 19:10 Consult Hospitalist Routine 07/21/19 07:39 Consult Case Management - Discharge Planning Routine Procedures Performed Operation Date: 07/17/19 11:30 Actual Procedures p Robotic Laparoscopic Prostatectomy, Lymph Node Dissection, Laparoscopic lysis of adhesions - Hesham Robert MD Hospital Course (1) Prostate cancer: A/P 64 yo male POD#5 s/p RALRP, BPLND. Bladder neck leak - 3 weeks of luciano and cystogram arranged as OP. Appointments in place, findings d/w patient. MORTEZA output good of late. Cr down below baseline. Patient ready to go home - DC MORTEZA, leg bag training, DC home, RX in place. DC instructions reviewed with patient. Discharge Instructions See DC instruction sheet.
--- NOTE | 2019-07-29 09:37 | Coding Query ---
CODING QUERY To promote full compliance with coding requirements relating to patient care, provider participation is requested in all cases of press pipe inspector uncertainty. Please assist us with the question(s) below: Coding Question(s): Patient status post radical robotic prostatectomy. Progress notes/Discharge summary mention bladder neck leak. Please check below the phrase that describes the postoperative bladder neck leak which will be followed up on an Outpatient basis. Thank you ! KARISHMA Kaba [facility] Physician's Response(s): ___X___ The bladder neck leak is an expected postoperative prostatectomy occurrence The bladder neck leak is a postoperative prostatectomy complication Cannot determine if the bladder neck leak is a postoperative prostatecomy complication or occurrence Other/ Please document: Principal Diagnosis: "that condition established after study, to be chiefly responsible for occasioning the admission of the patient to the hospital for care." Co-Existing Principal Diagnosis: "when two or more diagnoses equally meet the criteria for principal diagnosis as determined by the circumstances of admission, diagnostic work up, and/or therapy provided, and the Alphabetic Index, Tabular List, or another coding guideline does not provide sequencing direction, any one of the diagnoses may be sequenced first." "When the physician has documented what appears to be a current diagnosis in the body of the record, but has not included the diagnosis in the final diagnostic statement, the physician should be asked whether the diagnosis should be added." ([facility] 2 QTR90. p3-4) LUBNA
== END 2019-07-22 14:38 | disposition home or self-care (01) | DRG 707 ==
LOC: ASU 09:24 → 2N 16:05

== ENCOUNTER 2020-06-29 08:53 | Inpatient (IN) ==
[2020-06-29] MEDS ORDERED: MoRPHine SULFATE 4 MG/ML 1 ML CARP\\VIAL IV STA (09:21)
[2020-06-29] MEDS ORDERED: ONDANSETRON INJ 2 MG/ML 2 ML VIAL IV STA (09:21)
[2020-06-29 09:28] LABS: Basophils # (auto) 0.03 K/uL (0-0.2); Basophils % (auto) 0.2 %; Eosinophils # (auto) 0.19 K/uL (0-0.5); Eosinophils % (auto) 1.3 %; Hematocrit (blood only) 44.4 % (42-52); Hemoglobin 15.6 g/dL (14.0-18.0); Immature Granulocytes # (auto) 0.03 K/uL (0.00-0.02); Immature Granulocytes % (auto) 0.2 %; Lymphocytes # (auto) 0.89 K/uL (1.2-3.4); Lymphocytes % (auto) 6.2 %; Mean Corpuscular Hemoglobin 31.1 pg (25-34); Mean Corpuscular Hgb Conc 35.1 g/dL (32-36); Mean Corpuscular Volume 88.4 fL (80-100); Monocytes # (auto) 0.59 K/uL (0.11-0.59); Monocytes % (auto) 4.1 %; Neutrophils # (auto) 12.52 K/uL (1.4-6.5); Platelet Count 159 K/uL (130-400); RDW Coefficient of Variation 13.4 % (11.5-14.5); RDW Standard Deviation 43.3 fL (36.4-46.3); Red Blood Count 5.02 M/uL (4.7-6.1); White Blood Count 14.25 K/uL (4.8-10.8)
[2020-06-29] MEDS ORDERED: SODIUM CHLORIDE 0.9% 1000ML 1,000 ML IV SCH (09:30)
[2020-06-29 09:41] LABS: Partial Thromboplastin Ratio 0.9; Partial Thromboplastin Time 24.5 Seconds (21.0-31.0); Prothrombin Time 10.6 Seconds (9.0-12.0)
[2020-06-29 09:46] LABS: Albumin Globulin Ratio 0.7 (0.9-2); Albumin Level 3.7 gm/dl (3.4-5.0); BUN Creatinine Ratio 11.2 (10-20); Bilirubin,Total 0.7 mg/dl (0.2-1); Calcium 10.5 mg/dl (8.5-10.1); Est GFR (African American) 29.3; Est GFR (Non-African American) 25.2; Potassium 3.5 mmol/L (3.5-5.1); Total Protein 8.7 gm/dl (6.4-8.2)
[2020-06-29] MEDS ORDERED: NovoLIN-R INSULIN PER UNIT CHARGE IV STA (09:48)
[2020-06-29 09:59] LABS: Beta-Hydroxybutyrate 13.37 mg/dl (0.2-2.81)
--- NOTE | 2020-06-29 10:15 | CT Scan Report ---
CT OF THE ABDOMEN AND PELVIS WITHOUT CONTRAST CLINICAL HISTORY: Lower abdominal pain. COMPARISON STUDY: Abdominal series July 20, 2019. TECHNIQUE: Axial images of the abdomen and pelvis were obtained without IV contrast. Images were revi ewed in the axial, sagittal, and coronal planes. Automated exposure control was utilized for the kenneth dy. A dose lowering technique was utilized adhering to the principles of ALARA. FINDINGS: Visualized portions of the lower chest demonstrate moderate emphysema. Several solid noncal cified pulmonary nodules are noted. A 6 mm right lower lobe nodule on image 16 of 436 could reflect a lymph node or lung nodule. A 5 mm right lower lobe nodule is noted on image 30 as well as a 5 mm lef t lower lobe nodule on image 16. There is minimal groundglass opacity within the medial basilar segme nt of the left lower lobe. 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 Specifically, the kidneys are fused and located within the right renal fossa. There is mild to moderate hydronephrosis of the lowe r pole moiety with perinephric infiltration. This is due to a 4 mm calculus within the distal left ur eter. There are no additional urinary calculi. Evaluation of the remainder of the abdomen and pelvis is suboptimal on this unenhanced examination. There is glandular atrophy of the pancreas. There is no biliary or pancreatic ductal dilatation. The liver, spleen, adrenal glands are unremarkable. There i s a small hiatal hernia. There is colonic diverticulosis. There is slight thickening of the peritonea l reflections adjacent to the junction of the descending colon and the proximal sigmoid colon. There is no free air or abscess. Fat-containing left inguinal hernia is present. There is no lymphadenopath y. There are no suspicious osseous lesions. IMPRESSION: 1. 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 Mild to moderate hydronephrosis of the lower pole (left) moiety with perinephric infiltration due to a 4 mm distal left ureteral calculus. 2. Extensive colonic diverticulosis. Possible mild acute diverticulitis at the junction of the descen ding colon and sigmoid colon. No free air or abscess. 3. Minimal groundglass opacity within the medial basilar segment of the left lower lobe which may ref lect an infectious process or atelectasis. 4. Several solid noncalcified pulmonary nodules within the lower lungs that measure up to 6 mm. Follo w-up nonemergent chest CT is recommended. 5. Emphysema. ACT 112: Negative or not required by law. Electronically signed by: Lion Guzman M.D. 06/29/2020 10:13 AM
--- NOTE | 2020-06-29 10:26 | Emergency Department Note ---
History of Present Illness General Chief complaint: Abdominal Pain Time Seen by Provider: 06/29/20 09:20 Source: patient Mode of arrival: EMS Limitations: no limitations History of Present Illness Maximum Pain Intensity: 10 This patient comes presenting by EMS after having severe lower abdominal pain. On my initial exam it is difficult to get a history as he is in so much pain and just keeps asking for pain medication .he describes the pain is lower in his abdomen .he has had diarrhea for couple days. No fever or chills. No known Covid exposure no trauma or injury. No numbness or weakness his legs. No his tory of AAA. I may hurting his back a little. No dysuria or hematuria. He has had some nausea but no vomiting. No history of similar complaints. He is a diabetic and his blood sugars typically run very high Home Medications Home Medications Medication Instructions Recorded Confirmed Type Long Acting Insulin 25 unit SUBCUT QAM 06/29/20 06/29/20 History insulin aspart U-100 5 unit SUBCUT TIDM 06/29/20 06/29/20 History Allergies Allergy/AdvReac Type Severity Reaction Status Date / Time No Known Allergies Allergy Verified 06/29/20 10:14 Past Med/Surg History Medical History CKD (chronic kidney disease), stage IV Congenital abnormality of kidney Diverticulosis DM type 2 (diabetes mellitus, type 2) Gout hx Hypertension Male stress incontinence Malignant neoplasm of prostate Prostate cancer Surgical History History of appendectomy History of colonoscopy S/P prostatectomy Family History Father Heart disease Family history of lung cancer Mother Family history of diabetes mellitus Social History Smoking Status: Former smoker Second Hand Exposure: No; Do You Dip or Chew Tobacco: No; Tobacco Cessation Education Requested by Patient: No Hx Alcohol Use: No Hx Substance Use: No Preferred Language: Ukrainian Communication Ability: Effective Call Center Manager Required: No Beliefs That Will Affect Care: None marital status: Current Living Situation: Spouse Other Information That Helps Us Care for You: No Feels Safe at Home: Yes Safety Concerns: Feels Safe At This Time Childhood Exposure to Second-Hand Smoke: No Assistive Devices: None Review of Systems A total of 10 systems reviewed and were otherwise negative Physical Exam Vital Signs Vital Signs - 24 hr 06/29/20 09:07 06/29/20 09:36 Temperature 36.9 C Temperature Source Oral Pulse Rate 78 Respiratory Rate 18 Blood Pressure 191/116 H Blood Pressure Mean 141 Pulse Oximetry 96 96 Oxygen Delivery Method Room Air Room Air Sepsis Recent Fever Within 48 Hours No Sepsis New/Unexplained Change in Mental Status No Sepsis Action Taken by Nursing No Action Required General: Well developed well nourished older male who appears very uncomfortable secondary to pain he is moaning and asking for pain medicine but in no acute distress, breathing comfortably on room air. Normal speech HEENT: Normal cephalic atraumatic. Pupils are equal round and reactive to light. Extraocular movements are intact. Oropharynx is pink with moist mucous membranes. No swelling of the mouth lips or tongue. Neck: Supple with a midline trachea. No meningeal signs or stiffness, no JVD or bruits. No Stridor. Chest: Clear to auscultation bilaterally. No wheezes or rhonchi. No increased work of breathing. Heart: Regular rate and rhythm without murmurs or gallops. Abdomen: Soft significantly tender to palpation, nondistended without rebound guarding or rigidity. Extremities: No cyanosis clubbing or edema. No calf tenderness or assymetry Spine/Back. Non tender to palpation. No CVA tenderness Skin: Good turgor without rashes. Neurologic exam: Cranial nerves two through 12 are intact. Motor and sensation are intact and symmetrical throughout. Course Administered Medications Sodium Chloride (Nss 1000ml) 1,000 mls @ 125 mls/hr IV .Q8H KIRTI Stop: 07/29/20 09:59 Last Admin: 06/29/20 10:49 Dose: 125 mls/hr Documented by: [id number] Insulin Human Regular 250 (units/ Sodium Chloride) 250 mls @ 9.4 mls/hr IV .Q24H KIRTI; Protocol Stop: 07/29/20 11:59 Last Titration: 06/29/20 15:32 Dose: 9.4 units/hr, 9.4 mls/hr Documented by: [id number] Cosigned by: [id number] Titration: 06/29/20 14:52 Dose: 11.8 units/hr, 11.8 mls/hr Documented by: [id number] Cosigned by: [id number] Titration: 06/29/20 13:31 Dose: 8.4 units/hr, 8.4 mls/hr Documented by: [id number] Cosigned by: [id number] Admin: 06/29/20 12:29 Dose: 7 units/hr, 7 mls/hr Documented by: [id number] Cosigned by: [id number] Potassium Chloride (K Johnny / Wtr) 10 meq in 100 mls @ 100 mls/hr IV Q1H KIRTI Stop: 06/29/20 16:33 Last Admin: 06/29/20 15:21 Dose: 100 mls/hr Documented by: [id number] Discontinued Medications Sodium Chloride (Nss 1000ml) 1,000 mls @ 999 mls/hr IV .Q1H1M KIRTI Stop: 06/29/20 10:30 Last Infusion: 06/29/20 10:28 Dose: 0 mls/hr Documented by: [id number] Admin: 06/29/20 09:26 Dose: 999 mls/hr Documented by: [id number] Piperacillin Sod/Tazobactam Sod (Zosyn) 4.5 gm in 120 mls @ 240 mls/hr IV NOW ONE Stop: 06/29/20 11:05 Last Infusion: 06/29/20 12:13 Dose: 0 mls/hr Documented by: [id number] Admin: 06/29/20 11:09 Dose: 240 mls/hr Documented by: [id number] Potassium Chloride (K Johnny / Wtr) 10 meq in 100 mls @ 100 mls/hr IV Q1H KIRTI Stop: 06/29/20 12:44 Last Infusion: 06/29/20 14:39 Dose: 0 mls/hr Documented by: [id number] Admin: 06/29/20 13:37 Dose: 100 mls/hr Documented by: [id number] Infusion: 06/29/20 13:28 Dose: 100 mls/hr Documented by: [id number] Infusion: 06/29/20 12:28 Dose: 100 mls/hr Documented by: [id number] Infusion: 06/29/20 11:28 Dose: 0 mls/hr Documented by: [id number] Admin: 06/29/20 11:28 Dose: 100 mls/hr Documented by: [id number] Insulin Human Regular (Novolin-R Insulin Per Unit Charge) 10 units IV NOW STA Stop: 06/29/20 09:49 Last Admin: 06/29/20 10:47 Dose: 10 units Documented by: [id number] Cosigned by: [id number] Insulin Human Regular (Novolin-R Bolus From Bag) 7 units IV ONE ONE Stop: 06/29/20 12:04 Last Admin: 06/29/20 12:31 Dose: 7 units Documented by: [id number] Cosigned by: [id number] Miscellaneous (Dka Goal Range 150-250 Mg/Dl) 1 ea N/A ONE ONE Stop: 06/29/20 11:55 Last Admin: 06/29/20 13:38 Dose: 1 ea Documented by: [id number] Morphine Sulfate (Morphine Sulfate 4 Mg/Ml 1 Ml Carp\Vial) 4 mg IV NOW STA Stop: 06/29/20 09:22 Last Admin: 06/29/20 09:25 Dose: 4 mg Documented by: [id number] Ondansetron HCl (Ondansetron Inj 2 Mg/Ml 2 Ml Vial) 4 mg IV NOW STA Stop: 06/29/20 09:22 Last Admin: 06/29/20 09:25 Dose: 4 mg Documented by: [id number] Critical Care Time Critical Care Time: Yes Total Critical Care Time: 32 Due to the patient's significant pain, significant laboratory abnormalities with diabetic ketoacidosis infection and dehydration, the patient required frequent reassessment, multiple IV medications including IV insulin frequent reassessment and IV fluids and antibiotics, I have personally spent greater than 32 minutes of critical care time in the direct management of this patient. This includes bedside care, interpretation of diagnostic studies, and testing, discussion with consultants, patient, and family members, and other required patient management activities. This 32 minutes is in excess of all separately billable procedures. Medical Decision Making Differential Diagnosis Bowel obstruction, aneurysm, kidney infection, kidney stone, infection, diabetic emergency, dehydration, diarrhea, sepsis, Covid Medical Records Attestation: I reviewed the patient's medical records. Home Medications Current Medication List: was personally reviewed by me Laboratory Data Attestation: I reviewed the patient's lab results. Significant for elevation of white count as well as blood sugar and CO2 as well as renal insufficiency Result diagrams: 06/29/20 09:00 10/27/20 12:56 Lab Results 06/29/20 06/29/20 06/29/20 Range/Units 09:00 09:00 09:00 WBC 14.25 H (4.8-10.8) K/uL RBC 5.02 (4.7-6.1) M/uL Hgb 15.6 (14.0-18.0) g/dL Hct 44.4 (42-52) % MCV 88.4 (80-100) fL MCH 31.1 (25-34) pg MCHC 35.1 (32-36) g/dL RDW Std Deviation 43.3 (36.4-46.3) fL RDW Coeff of Rich 13.4 (11.5-14.5) % Plt Count 159 (130-400) K/uL MPV 12.0 H (7.4-10.4) fL Immature Gran % (Auto) 0.2 % Neut % (Auto) 88.0 % Lymph % (Auto) 6.2 % [place] % (Auto) 4.1 % Eos % (Auto) 1.3 % Baso % (Auto) 0.2 % Neut # (Auto) 12.52 H (1.4-6.5) K/uL Lymph # (Auto) 0.89 L (1.2-3.4) K/uL [place] # (Auto) 0.59 (0.11-0.59) K/uL Eos # (Auto) 0.19 (0-0.5) K/uL Baso # (Auto) 0.03 (0-0.2) K/uL Immature Gran # (Auto) 0.03 H (0.00-0.02) K/uL PT 10.6 (9.0-12.0) Seconds INR 1.0 (0.9-1.1) APTT 24.5 (21.0-31.0) Seconds PTT Ratio 0.9 Sodium 134 L (136-145) mmol/L Potassium 3.5 (3.5-5.1) mmol/L Chloride 101 (98-107) mmol/L Carbon Dioxide 19 L (21-32) mmol/L Anion Gap 14.0 H (3-11) BUN 29 H (7-18) mg/dl Creatinine 2.56 H (0.6-1.4) mg/dl Est Cr Clr Drug Dosing 25.0 ml/min Est GFR ( Amer) 29.3 Est GFR (Non-Af Amer) 25.2 BUN/Creatinine Ratio 11.2 (10-20) Glucose 500 H* (70-99) mg/dl Calcium 10.5 H (8.5-10.1) mg/dl Total Bilirubin 0.7 (0.2-1) mg/dl AST 22 (15-37) U/L ALT 24 (12-78) U/L Alkaline Phosphatase 117 (45-117) U/L Total Protein 8.7 H (6.4-8.2) gm/dl Albumin 3.7 (3.4-5.0) gm/dl Globulin 5.0 H (2.5-4.0) gm/dl Albumin/Globulin Ratio 0.7 L (0.9-2) Lipase 151 (73-393) U/L Beta-Hydroxybutyric Acd 13.37 H (0.2-2.81) mg/dl Hepatitis C Ab Screen (Neg) 06/29/20 Range/Units 09:00 WBC (4.8-10.8) K/uL RBC (4.7-6.1) M/uL Hgb (14.0-18.0) g/dL Hct (42-52) % MCV (80-100) fL MCH (25-34) pg MCHC (32-36) g/dL RDW Std Deviation (36.4-46.3) fL RDW Coeff of Rich (11.5-14.5) % Plt Count (130-400) K/uL MPV (7.4-10.4) fL Immature Gran % (Auto) % Neut % (Auto) % Lymph % (Auto) % [place] % (Auto) % Eos % (Auto) % Baso % (Auto) % Neut # (Auto) (1.4-6.5) K/uL Lymph # (Auto) (1.2-3.4) K/uL [place] # (Auto) (0.11-0.59) K/uL Eos # (Auto) (0-0.5) K/uL Baso # (Auto) (0-0.2) K/uL Immature Gran # (Auto) (0.00-0.02) K/uL PT (9.0-12.0) Seconds INR (0.9-1.1) APTT (21.0-31.0) Seconds PTT Ratio Sodium (136-145) mmol/L Potassium (3.5-5.1) mmol/L Chloride (98-107) mmol/L Carbon Dioxide (21-32) mmol/L Anion Gap (3-11) BUN (7-18) mg/dl Creatinine (0.6-1.4) mg/dl Est Cr Clr Drug Dosing ml/min Est GFR ( Amer) Est GFR (Non-Af Amer) BUN/Creatinine Ratio (10-20) Glucose (70-99) mg/dl Calcium (8.5-10.1) mg/dl Total Bilirubin (0.2-1) mg/dl AST (15-37) U/L ALT (12-78) U/L Alkaline Phosphatase (45-117) U/L Total Protein (6.4-8.2) gm/dl Albumin (3.4-5.0) gm/dl Globulin (2.5-4.0) gm/dl Albumin/Globulin Ratio (0.9-2) Lipase (73-393) U/L Beta-Hydroxybutyric Acd (0.2-2.81) mg/dl Hepatitis C Ab Screen Neg (Neg) Imaging Data Radiologist's Impression: CT OF THE ABDOMEN AND PELVIS WITHOUT CONTRAST CLINICAL HISTORY: Lower abdominal pain. COMPARISON STUDY: Abdominal series July 20, 2019. TECHNIQUE: Axial images of the abdomen and pelvis were obtained without IV contrast. Images were reviewed in the axial, sagittal, and coronal planes. Automated exposure control was utilized for the study. A dose lowering technique was utilized adhering to the principles of ALARA. FINDINGS: Visualized portions of the lower chest demonstrate moderate emphysema. Several solid noncalcified pulmonary nodules are noted. A 6 mm right lower lobe nodule on image 16 of 436 could reflect a lymph node or lung nodule. A 5 mm right lower lobe nodule is noted on image 30 as well as a 5 mm left lower lobe nodule on image 16. There is minimal groundglass opacity within the medial basilar segment of the left lower lobe. 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 Specifically, the kidneys are fused and located within the right renal fossa. There is mild to moderate hydronephrosis of the lower pole moiety with perinephric infiltration. This is due to a 4 mm calculus within the distal left ureter. There are no additional urinary calculi. Evaluation of the remainder of the abdomen and pelvis is suboptimal on this unenhanced examination. There is glandular atrophy of the pancreas. There is no biliary or pancreatic ductal dilatation. The liver, spleen, adrenal glands are unremarkable. There is a small hiatal hernia. There is colonic diverticulosis. There is slight thickening of the peritoneal reflections adjacent to the junction of the descending colon and the proximal sigmoid colon. There is no free air or abscess. Fat-containing left inguinal hernia is present. There is no lymphadenopathy. There are no suspicious osseous lesions. IMPRESSION: 1. 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 Mild to moderate hydronephrosis of the lower pole (left) moiety with perinephric infiltration due to a 4 mm distal left ureteral calculus. 2. Extensive colonic diverticulosis. Possible mild acute diverticulitis at the junction of the descending colon and sigmoid colon. No free air or abscess. 3. Minimal groundglass opacity within the medial basilar segment of the left lower lobe which may reflect an infectious process or atelectasis. 4. Several solid noncalcified pulmonary nodules within the lower lungs that measure up to 6 mm. Follow-up nonemergent chest CT is recommended. 5. Emphysema. ECG Data Attestation: I personally reviewed and interpreted this ECG as follows: Indication: + abdominal pain, + toxicologic and + weakness Rate (beats per minute): 73 Rhythm: + normal sinus ECG Intervals/blocks: + Normal QRS, + Normal QT and + Normal IA ECG [place]: + Normal ECG ST segments: + Normal ST segments ECG Findings: no PACs and no PVCs Comparison ECG Date: from (07/08/17) Change: no significant change MDM Narrative This patient was brought in by ambulance and put private placed in room A2. The nurse asked me to see him as he was have a lot of discomfort. He appears very uncomfortable and is in no respiratory distress. IV access established and he was given morphine 4 mg IV and Zofran 4 mg IV as well as 1 L IV normal saline bolus he was feeling a lot better after this. His white count was significantly elevated at 14. His blood sugar was 500. His CO2 is low and he does have a degree of diabetic ketoacidosis at this point he was given regular insulin 10 units IV. I did a CAT scan without contrast given his renal insufficiency, he does have obstructive obstructive uropathy with a kidney stone on the left. His urine however does not appear to be infected. He was covered with antibiotics as there is questionable diverticulitis on the CAT scan he was given Zosyn 4.5 g IV. With the antibiotics the fluids and the pain medication he seems to be doing much better. I do think he needs to be admitted for pain management, IV antibiotics and management of his diabetes/DKA. I also ordered a venous blood gas that showed a pH of 7.23. I did consult the [facility] to see him for admission Impression & Plan DKA (diabetic ketoacidoses), Kidney stone, Renal colic, Renal insufficiency, Diarrhea, Acute dehydration Discharge Plan Visit Data Chief Complaint: Abdominal Pain ED Provider: Frank Jeff Discharge Problem: DKA (diabetic ketoacidoses), Kidney stone, Renal colic, Renal insufficiency, Diarrhea, Acute dehydration Patient Disposition: Admitted As Inpatient Discharge Instructions Interventions: ED Discharge Assessment Last Done: 06/29/20 11:33 Discharge Problem: DKA (diabetic ketoacidoses) Qualifiers: Diabetes mellitus type: type 2 Diabetes mellitus complication detail: without coma Qualified Code(s): E11.10 - Type 2 diabetes mellitus with ketoacidosis without coma Diarrhea Qualifiers: Diarrhea type: unspecified type Qualified Code(s): R19.7 - Diarrhea, unspecified
[2020-06-29] MEDS ORDERED: PIPERACILL/TAZOBAC CONSULT ACTIVE PRN ×2 (10:36→11:52)
[2020-06-29] MEDS ORDERED: PIPERACILLIN/TAZOBACTAM 4.5 GM/120 ML BAG IV ONE (10:36)
--- NOTE | 2020-06-29 10:40 | History & Physical Report ---
Date of Service June 29, 2020 Assessment & Plan (1) DKA (diabetic ketoacidoses): History of diabetes mellitus Presents with blood sugars 500, bicarb 19, pH 7.2, urine positive for ketones In the ED started on insulin drip and IV fluids Mild hypokalemia Replace and continue to monitor Glycemic pharmacy consulted for further management/IV insulin drip At home patient is on long-acting insulin 25 units, daily and 5 units NovoLog 3 times a day We will update hemoglobin A1c Continue to closely monitor at PCU (2) DM type 2 (diabetes mellitus, type 2): (3) CKD (chronic kidney disease), stage IV: History of CKD stage IV, now with improvement to CKD stage IIIb Improvement likely due to surgery/prostatectomy which alleviated some of obstructive symptoms Try to avoid NSAIDs, IV contrast and other nephrotoxic agents His baseline creatinine usually was around 3.2-3.5 Current creatinine is 2.5 (4) Hydronephrosis concurrent with and due to calculi of kidney and ureter: On CT, there is hydronephrosis and 4 mm renal stone in left ureter Patient has history of congenital kidney abnormality Follows with urology for history of prostate cancer Now presents with abdominal pain, left flank pain radiating to the left groin Urology consulted - Plan for urologic procedure/ stent placement Try to strain all urine, however patient has chronic urinary incontinence UA negative Continue IV fluids, analgesics (5) Diverticulitis: Patient presented with abdominal pain, and diarrhea We will obtain stool cultures, C. difficile CT showing acute diverticulitis of descending colon and sigmoid colon IV zosyn started in the ED, will continue GI consulted -patient history of recent colonoscopy in 2019, known history of diverticulosis Recommend to continue antibiotics, IV fluids, supportive management with antiemetics and analgesics (6) HTN (hypertension): Patient is on lisinopril 5 mg daily However states he did not have medication in a long time For now we will continue to hold, should be restarted on discharge (7) Anemia: Chronic anemia due to CKD No signs of bleeding Current hemoglobin 15, likely hemoconcentrated We will continue to monitor (8) Prostate cancer: (9) S/P prostatectomy: Patient underwent prostatectomy with Dr. Robert, in July 2019 Continues to follow with urology as outpatient Code: Full DVTppx: SCDs History of Present Illness Chief Complaint: Abdominal pain, nausea Primary Care Provider: Mohit Cordoba MD Patient is a 65-year-old male, with history of prostate cancer, status post prostatectomy by Dr. Robert, in July 2019, CKD stage IV, now improved to CKD stage IIIb, follows with Dr. Wheeler, hypertension in the setting of CKD, hyperlipidemia, diabetes mellitus type 2, chronic anemia, history of congenital abnormality of kidney and diverticulosis, history of urinary incontinence, who now presents with abdominal pain, nausea and diarrhea. Patient woke up this morning, and reports he felt well, drove his to work early in the morning, and then developed left flank pain radiating to the left groin, pain is sharp, and severe, patient became nauseous, and also reported diarrhea that started this morning. Denied any blood in her stool. He presented to emergency room. In the ED he was found to be hyperglycemic, with blood sugars in the 500s. Bicarb was low 19, and pH low at 7.2. Patient was started on IV insulin, for DKA. CT abdomen pelvis was obtained, and showed hydronephrosis of the lower pole with perinephric infiltration due to 4 mm distal left ureteral calculus. Patient has history of congenital renal disease and CKD, which somewhat improved after prostatectomy. CT also showed acute diverticulitis at the junction of the descending colon and sigmoid colon. Patient denies any recent fevers or chills, chest pain, shortness of breath, any sick contacts. He continues to have urinary incontinence, however denies any burning with urination. He does continue to complain of pain that is now mostly in left groin area. Patient received morphine for pain, IV fluids as well. Patient started on IV Zosyn for diverticulitis. Hospitalist team was contacted for further management. Allergies Allergy/AdvReac Type Severity Reaction Status Date / Time No Known Allergies Allergy Verified 06/29/20 10:14 Home Medications Home Medications Medication Instructions Recorded Confirmed Type Long Acting Insulin 25 unit SUBCUT QAM 06/29/20 06/29/20 History insulin aspart U-100 5 unit SUBCUT TIDM 06/29/20 06/29/20 History Past Med/Surg History Medical History CKD (chronic kidney disease), stage IV Congenital abnormality of kidney Diverticulosis DM type 2 (diabetes mellitus, type 2) Gout hx Hypertension Male stress incontinence Malignant neoplasm of prostate Prostate cancer Surgical History History of appendectomy History of colonoscopy S/P prostatectomy Family History Father Heart disease Family history of lung cancer Mother Family history of diabetes mellitus Social History Smoking Status: Former smoker Second Hand Exposure: No; Do You Dip or Chew Tobacco: No; Tobacco Cessation Education Requested by Patient: No Hx Alcohol Use: No Hx Substance Use: No Preferred Language: Kazakh Communication Ability: Effective Diet Assistant Required: No Beliefs That Will Affect Care: None marital status: Current Living Situation: Spouse Other Information That Helps Us Care for You: No Feels Safe at Home: Yes Safety Concerns: Feels Safe At This Time Childhood Exposure to Second-Hand Smoke: No Assistive Devices: None Review of Systems Review of Systems: All systems reviewed & are unremarkable except as noted in HPI & below Constitutional: no fever and no chills Eyes: no problem reported Ear, Nose, Mouth, Throat: no problem reported Respiratory: no cough and no dyspnea Cardiovascular: no chest pain, no palpitations and no edema Gastrointestinal: + abdominal pain and + nausea; no vomiting Genitourinary: + urinary incontinence (chronic) and + flank pain (Left) Musculoskeletal: no problem reported Integumentary: no problem reported Neurologic: no problem reported Psychiatric: no problem reported Endocrine: no problem reported Hematologic / Lymphatic: no problem reported Allergy / Immunological: no problem reported Physical Exam Physical Exam: Elderly male lying in bed, slightly uncomfortable due to pain Constitutional: WD/WN, vitals as above Eyes: PERRL, conjunctivae normal, anicteric sclerae EOM intact bilaterally ENMT: external ear and nose normal, oropharynx normal Neck: trachea midline, no thyromegaly Respiratory: normal respiratory effort, lungs clear to auscultation Auscultation: no crackles, no rhonchi and no wheezes Cardiovascular: RRR, no murmur, no edema Extremities: no edema Chest (Breasts): Chest: normal inspection of chest Gastrointestinal (Abdomen): Inspection/Auscultation: abdomen normal to inspection, + abdomen distended and normal bowel sounds Percussion/Palpation: + abdomen tender (LLQ) and abdomen soft; no guarding and abdomen not rigid obese Musculoskeletal: no cyanosis or clubbing, extremities motor strength 5/5 Skin: no rashes, warm and dry Neurologic: PERRL, EOMI, accommodation nl, no face palsy, no dysarthria moves all extremities Psychiatric: A+Ox3, euthymic affect Genitourinary: + CVA tenderness (Left) Results & Data Results & Data ([facility]) Vital Signs (Past 12 Hours) Vital Signs Temp Pulse Resp BP Pulse Ox 06/29/20 09:36 96 06/29/20 09:07 36.9 C 78 18 191/116 H 96 Laboratory Results 06/29/20 06/29/20 06/29/20 Range/Units 09:00 09:00 09:00 WBC 14.25 H (4.8-10.8) K/uL RBC 5.02 (4.7-6.1) M/uL Hgb 15.6 (14.0-18.0) g/dL Hct 44.4 (42-52) % MCV 88.4 (80-100) fL MCH 31.1 (25-34) pg MCHC 35.1 (32-36) g/dL RDW Std Deviation 43.3 (36.4-46.3) fL RDW Coeff of Rich 13.4 (11.5-14.5) % Plt Count 159 (130-400) K/uL MPV 12.0 H (7.4-10.4) fL Immature Gran % (Auto) 0.2 % Neut % (Auto) 88.0 % Lymph % (Auto) 6.2 % [place] % (Auto) 4.1 % Eos % (Auto) 1.3 % Baso % (Auto) 0.2 % Neut # (Auto) 12.52 H (1.4-6.5) K/uL Lymph # (Auto) 0.89 L (1.2-3.4) K/uL [place] # (Auto) 0.59 (0.11-0.59) K/uL Eos # (Auto) 0.19 (0-0.5) K/uL Baso # (Auto) 0.03 (0-0.2) K/uL Immature Gran # (Auto) 0.03 H (0.00-0.02) K/uL PT 10.6 (9.0-12.0) Seconds INR 1.0 (0.9-1.1) APTT 24.5 (21.0-31.0) Seconds PTT Ratio 0.9 Sodium 134 L (136-145) mmol/L Potassium 3.5 (3.5-5.1) mmol/L Chloride 101 (98-107) mmol/L Carbon Dioxide 19 L (21-32) mmol/L Anion Gap 14.0 H (3-11) BUN 29 H (7-18) mg/dl Creatinine 2.56 H (0.6-1.4) mg/dl Est Cr Clr Drug Dosing 25.0 ml/min Est GFR ( Amer) 29.3 Est GFR (Non-Af Amer) 25.2 BUN/Creatinine Ratio 11.2 (10-20) Glucose 500 H* (70-99) mg/dl Calcium 10.5 H (8.5-10.1) mg/dl Total Bilirubin 0.7 (0.2-1) mg/dl AST 22 (15-37) U/L ALT 24 (12-78) U/L Alkaline Phosphatase 117 (45-117) U/L Total Protein 8.7 H (6.4-8.2) gm/dl Albumin 3.7 (3.4-5.0) gm/dl Globulin 5.0 H (2.5-4.0) gm/dl Albumin/Globulin Ratio 0.7 L (0.9-2) Lipase 151 (73-393) U/L Beta-Hydroxybutyric Acd 13.37 H (0.2-2.81) mg/dl Diagnostic Findings Medications Administered IMPRESSION: 1. 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 Mild to moderate hydronephrosis of the lower pole (left) moiety with perinephric infiltration due to a 4 mm distal left ureteral calculus. 2. Extensive colonic diverticulosis. Possible mild acute diverticulitis at the junction of the descending colon and sigmoid colon. No free air or abscess. 3. Minimal groundglass opacity within the medial basilar segment of the left lower lobe which may reflect an infectious process or atelectasis. 4. Several solid noncalcified pulmonary nodules within the lower lungs that measure up to 6 mm. Follow-up nonemergent chest CT is recommended. 5. Emphysema.
[2020-06-29] MEDS: SODIUM CHLORIDE 0.9% 1000ML 1,000 ML IV SCH ×2 (10:49→20:10)
[2020-06-29] MEDS ORDERED: PHARMACY GLYCEMIC MGMT CONSULT PRN (10:52)
[2020-06-29 10:55] LABS: Appearance Urine Clear (Clear); Bacteria Urine Automated Negative (Negative); Bilirubin Urine Negative (Negative); Blood Urine Trace (Negative); Cast Urine Automated 0 /lpf (0-5); Color Urine Yellow; Epithelial Cell Urine Auto 0-5 /lpf (0-5); Glucose Urine UA 3+ (Negative); Ketones Urine Trace (Negative); Leukocyte Esterase Urine Negative (Negative); Nitrite Urine Negative (Negative); Protein Urine 2+ (Negative); Specific Gravity Urine 1.017 (1.000-1.030); Urobilinogen Urine Negative (Negative)
[2020-06-29 11:17] LABS: Base Excess VBG -6.1 mEq/L; HCO3 VBG 22 mmol/L; PCO2 VBG 53 mmHg (38-50); PO2 VBG 27 mmHg; pH VBG 7.23 (7.36-7.41)
[2020-06-29] MEDS: POTASSIUM CHLORIDE / WTR 10 MEQ/100 ML PLCT IV SCH ×4 (11:28→17:30)
[2020-06-29 11:30] LABS: Oxygen Saturation VBG < 60.0 %
[2020-06-29] MEDS ORDERED: DKA GOAL RANGE 150-250 mg/dl ONE (11:54)
[2020-06-29] MEDS ORDERED: NovoLIN-R BOLUS FROM BAG IV ONE (12:03)
[2020-06-29] MEDS ORDERED: GLUCOSE 40% GEL 15 GM TUBE PO PRN (12:15)
[2020-06-29] MEDS ORDERED: GLUCOSE 10 TABS/TUBE PO PRN (12:15)
[2020-06-29] MEDS ORDERED: CARBOHYDRATES FOR HYPOGLYCEMIA PO PRN (12:15)
[2020-06-29] MEDS ORDERED: GLUCAGON FOR INJ 1 MG VIAL IM PRN (12:15)
[2020-06-29] MEDS: INSULIN REGULAR 250 UNITS in SODIUM CHLORIDE 0.9% 247.5 ML IV SCH (12:29)
--- NOTE | 2020-06-29 13:07 | Urology Consultation ---
Date of Consultation June 29, 2020 Assessment & Plan (1) Left ureteral stone: (2) Hydronephrosis of left kidney: 65yo M admitted with abdominal pain and nausea with a 4mm left distal ureteral stone with moderate left hydronephrosis -Keep NPO -Strain all urine -Findings reviewed with Dr. Crowley. Given his pain and left hydronephrosis in the context of an obstructing 4mm distal left ureteral stone, will proceed with OR for Cystoscopy, Left retrograde pyelogram and Left stent placement, possible Ureteroscopy, Laser lithotripsy, stone basketing, possible ureteral dilation depending on findings. Risks and benefits to be reviewed with patient by Dr. Crowley. OR notified. Preoperative CXR and EKG in chart. On IV Zosyn. History of Present Illness Attending Physician: Wally Bal MD History of Present Illness 65yo M with a PMHx of prostate cancer s/p prostatectomy by Dr. Robert in Jul 2019, CKD, HTN, hyperlipidemia, DM type 2, chronic anemia, hx of congenital abnormality of kidney, diverticulosis, urinary incontinence who presented today with c/o L sided abd pain with associated nausea and admitted for acute diverticulitis, DKA, and a 4mm left distal ureteral stone with hydronephrosis. Urology consulted for a distal left ureteral stone w/hydro Patient is known to our service, follows with Dr. Vivas Chart review: Afebrile WBC 14.25 Cr 2.43 Hgb 15.6 UA - 5-10RBCs, negative leuks, negative bacteria On IV Zosyn Presented with Blood Glucose of 500- On IV Insulin drip CT Abd/Pelvis (06/29) Impression- 1. 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 Mild to moderate hydronephrosis of the lower pole (left) moiety with perinephric infiltration due to a 4 mm distal left ureteral calculus. 2. Extensive colonic diverticulosis. Possible mild acute diverticulitis at the junction of the descending colon and sigmoid colon. No free air or abscess. 3. Minimal groundglass opacity within the medial basilar segment of the left lower lobe which may reflect an infectious process or atelectasis. 4. Several solid noncalcified pulmonary nodules within the lower lungs that measure up to 6 mm. Follow-up nonemergent chest CT is recommended. 5. Emphysema. Patient examined at bedside. Awake, resting in bed on arrival. Denies fevers or chills. Denies nausea or vomiting. Has c/o L abdominal pain and suprapubic discomfort. Denies any hematuria or dysuria. Reports some bothersome urinary leakage/incontinence. Some urgency. Denies frequency. Feels he empties OK. D enies prior hx of stones. No family hx of stones. Last PSA January 2020- 0.02. No additional concerns today. Allergies Allergy/AdvReac Type Severity Reaction Status Date / Time No Known Allergies Allergy Verified 06/29/20 10:14 Home Medications Home Medications Medication Instructions Recorded Confirmed Type Long Acting Insulin 25 unit SUBCUT QAM 06/29/20 06/29/20 History insulin aspart U-100 5 unit SUBCUT TIDM 06/29/20 06/29/20 History Patient History Medical History (Updated 06/29/20 @ 16:26 by Andrew Sawyer MD) CKD (chronic kidney disease), stage IV Congenital abnormality of kidney Diverticulosis DM type 2 (diabetes mellitus, type 2) Gout hx Hypertension Male stress incontinence Malignant neoplasm of prostate Prostate cancer Surgical History History of appendectomy History of colonoscopy S/P prostatectomy Family History Father Heart disease Family history of lung cancer Mother Family history of diabetes mellitus Social History Smoking Status: Former smoker Second Hand Exposure: No; Do You Dip or Chew Tobacco: No; Tobacco Cessation Education Requested by Patient: No Hx Alcohol Use: No Hx Substance Use: No Preferred Language: Greenlandic Communication Ability: Effective Coding Analyst Required: No Beliefs That Will Affect Care: None marital status: Current Living Situation: Spouse Other Information That Helps Us Care for You: No Feels Safe at Home: Yes Safety Concerns: Feels Safe At This Time Childhood Exposure to Second-Hand Smoke: No Assistive Devices: None Review of Systems Review of Systems: All systems reviewed & are unremarkable except as noted in HPI & below Physical Exam Constitutional: cooperative; no acute distress Neck: normal visual inspection Respiratory: normal respiratory effort and able to speak in complete sentences Cardiovascular: Extremities: no pedal edema Gastrointestinal (Abdomen): Percussion/Palpation: + abdomen tender and abdomen soft Musculoskeletal: Head/Neck/Chest: normocephalic Skin: no rashes, warm and dry Neurologic: awake; not confused Psychiatric: Orientation: alert and oriented x 3 Results & Data ([facility]) Vital Signs (Past 12 Hours) Vital Signs Temp Pulse Pulse Resp BP BP BP 06/29/20 11:49 36.7 C 06/29/20 11:45 80 18 178/110 H 179/110 H 06/29/20 09:36 06/29/20 09:07 36.9 C 78 18 191/116 H Pulse Ox 06/29/20 11:49 06/29/20 11:45 99 06/29/20 09:36 96 06/29/20 09:07 96 PG Care Time/CCT Total # of Minutes Spent Total Time Spent with Patient: Total time spent is greater than 50% in coordination of care (as documented) at patient's floor/unit and/or counseling patient: Coding Level of Care Code 45079 Initial Inpt Care Lvl 3 Diagnoses Left ureteral stone N20.1 Hydronephrosis of left kidney N13.30
--- NOTE | 2020-06-29 13:39 | Gastrointestinal Consultation ---
Date of Consultation June 29, 2020 Assessment & Plan (1) Diverticulitis: Pt is a 65 y/o male seen for uncomplicated L sided diverticulitis. Last colonoscopy in 2019 - noted diverticuli on sigmoid and descending colon. Hx of adenomatous polyp. - Cipro/Flagyl antibx - Supportive management: IVF support, antiemetics, analgesics - CL diet ok, advance as tolerated - Fiber supplement daily after diverticulitis resolved - Defer BSG management and further workup of abnormal findings in CT ( hydronephrosis, renal ectopia , pulmonary nodules) to hospitalist team - GI to sign off; pls recall prn Supervising Physician Co-Signing Physician Notes I performed a history and physical examination of the patient today, including specifically on physical exam - soft abdomen. I have discussed the patient's management with the advanced practitioner. Please refer to the nurse practitioner's note for the documented findings and plan of care. Treat with bowel rest and ABx. He had fairly recent colonoscopy hence no need for repeat. Recall Gi if needed. History of Present Illness Reason for Consultation: Diverticulitis Requesting Physician: Dr. Wally Bal Attending Physician: Dr. Alo Thibodeaux History of Present Illness Pt is a 65 y/o male w PMHx of prostate ca s/p prostatectomy, DM II, CKD, gout, who presented today w c/o L sided abd pain associated w nausea w/o vomiting. He denies fever, chills. Said bowels move daily w/o straining or constipation, rectal bleeding. Labs notable for leukocytosis, WBC 14K, no anemia noted, + worsening renal function, glucose 500s. LFTs and lipase were normal. UA w spilled ketones, proteins. CT abd/pelvis obtained w/o contrast showed acute diverticulitis on junction of descending and sigmoid colon w/o free air and abscess. Allergies Allergy/AdvReac Type Severity Reaction Status Date / Time No Known Allergies Allergy Verified 06/29/20 10:14 Home Medications Home Medications Medication Instructions Recorded Confirmed Type Long Acting Insulin 25 unit SUBCUT QAM 06/29/20 06/29/20 History insulin aspart U-100 5 unit SUBCUT TIDM 06/29/20 06/29/20 History Patient History Medical History CKD (chronic kidney disease), stage IV Congenital abnormality of kidney Diverticulosis DM type 2 (diabetes mellitus, type 2) Gout hx Hypertension Male stress incontinence Malignant neoplasm of prostate Prostate cancer Surgical History History of appendectomy History of colonoscopy S/P prostatectomy Family History Father Heart disease Family history of lung cancer Mother Family history of diabetes mellitus Social History Smoking Status: Former smoker Second Hand Exposure: No; Do You Dip or Chew Tobacco: No; Tobacco Cessation Education Requested by Patient: No Hx Alcohol Use: No Hx Substance Use: No Preferred Language: [place] Communication Ability: Effective Pattern Finisher Required: No Beliefs That Will Affect Care: None marital status: Current Living Situation: Spouse Other Information That Helps Us Care for You: No Feels Safe at Home: Yes Safety Concerns: Feels Safe At This Time Childhood Exposure to Second-Hand Smoke: No Assistive Devices: None Review of Systems Review of Systems: All systems reviewed & are unremarkable except as noted in HPI & below Physical Exam Constitutional: WD/WN, vitals as above well groomed, cooperative and comfortable Eyes: PERRL, conjunctivae normal, anicteric sclerae ENMT: external ear and nose normal, oropharynx normal Respiratory: normal respiratory effort, lungs clear to auscultation Cardiovascular: RRR, no murmur, no edema Gastrointestinal (Abdomen): Inspection/Auscultation: + hypoactive bowel sounds Percussion/Palpation: + abdomen tender (along L abd and across lower abd areas) and abdomen soft Skin: no rashes, warm and dry no jaundice Neurologic: Motor/Sensory: no asterixis Psychiatric: A+Ox3, euthymic affect Lymphatic: no lymphedema Results & Data ([facility]) Vital Signs (Past 12 Hours) Vital Signs Temp Pulse Pulse Resp BP BP BP 06/29/20 11:49 36.7 C 06/29/20 11:45 80 18 178/110 H 179/110 H 06/29/20 09:36 06/29/20 09:07 36.9 C 78 18 191/116 H Pulse Ox 06/29/20 11:49 06/29/20 11:45 99 06/29/20 09:36 96 06/29/20 09:07 96
--- NOTE | 2020-06-29 14:57 | Pharmacy Report ---
Pharmacy Glycemic Short Note 2 - Date of Service June 29, 2020 - Glycemic Short BSG Results (Last 24 hours): 06/29/20 06/29/20 06/29/20 09:00 11:10 12:03 Glucose 500 H* POC Glucose 478 H* 461 H* 06/29/20 06/29/20 13:29 14:36 Glucose POC Glucose 411 H* 484 H* OUTPATIENT ANTIDIABETIC REGIMEN: * Per Provider as reviewed from outside EMR * Lantus 20 units qam * Novolog 5 units TID ASSESSMENT: * Patient presenting in DKA/HHS with possible diverticulitis and infected kidney stone, initiated on zosyn. Patient was started on a weight based DKA IV insulin regimen. * NS currently running at 125 mL/hr. Discussed with Provider and she will make necessary fluid adjustments based on subsequent BMPs (ordered q4h overnight). * Patient NPO PLAN FOR INPATIENT GLYCEMIC CONTROL: * Hold outpatient oral diabetes medications * Starting IV insulin infusion per DKA/HHS protocol * Bolus of 7 units IV X 1 followed by weight based infusion * Goal Range 150 - 250 mg/dl * In the critical care setting, continuous IV insulin infusion has been shown to be the best method for achieving glycemic targets. * Bolus insulin * NovoLog per insulin infusion calculator
[2020-06-29 15:36] LABS: BUN Creatinine Ratio 12.6 (10-20); Calcium 9.8 mg/dl (8.5-10.1); Creatinine Clr Calc Pharmacy 26.4 ml/min; Est GFR (African American) 31.2; Est GFR (Non-African American) 26.9; Magnesium 2.1 mg/dl (1.8-2.4); Phosphorus 3.1 mg/dl (2.5-4.9); Potassium 3.4 mmol/L (3.5-5.1)
[2020-06-29] MEDS ORDERED: fentaNYL citrate 100 MCG/2 ML VIAL ONE (15:54)
[2020-06-29] MEDS ORDERED: ONDANSETRON INJ 2 MG/ML 2 ML VIAL ONE ×2 (15:54→16:53)
[2020-06-29] MEDS ORDERED: PROPOFOL IV EMULSION 10 MG/ML 20 ML VIAL IV ONE (15:54)
[2020-06-29] MEDS ORDERED: LIDOCAINE HCL 2% 2 ML VIAL/AMP(20MG/ML) INFIL ONE (15:54)
[2020-06-29 15:55] LABS: Beta-Hydroxybutyrate 7.94 mg/dl (0.2-2.81)
--- NOTE | 2020-06-29 16:06 | History & Physical Bridge Note ---
Date of Service June 29, 2020 History & Physical Bridge Note I have examined the patient, reviewed the History & Physical and in the interval since the performance of the History & Physical I have noted the following changes of clinical significance: no changes noted
--- NOTE | 2020-06-29 16:27 | Anesthesiology Consultation ---
Date of Service June 29, 2020 Covid 19 negative today. The patient came in with BSGs in the 500s. He is on an insulin gtt and is receiving potassium IV. BSG is currently 277. Assessment & Plan (1) Encounter for pre-operative examination: Chart Review Chart Review: Acceptable Risk for Surgery and Patient NOT seen in Pre Admission Testing Consults Requested none medicine is following History Surgery Operation Date: 06/29/20 12:00 Proposed Procedures p Left Cystoscopy, Retrograde Pylegram, Left Urethal Stent Placement, Possible Left Urethroscopy, Laser Lithotripsy, Stone Basketing Ureteral - Aravind Crowley MD Height/Weight Height: 5 ft 5 in Weight: 69.5 kg Allergies Allergy/AdvReac Type Severity Reaction Status Date / Time No Known Allergies Allergy Verified 06/29/20 10:14 Medications Home Medications Medication Instructions Recorded Confirmed Last Taken Long Acting Insulin 25 unit SUBCUT QAM 06/29/20 06/29/20 06/28/20 insulin aspart U-100 5 unit SUBCUT TIDM 06/29/20 06/29/20 06/28/20 Active Medications Generic Name Dose Route Start Last Admin Trade Name Freq PRN Reason Stop Dose Admin Sodium Chloride 1,000 mls @ 125 mls/hr 06/29/20 10:00 06/29/20 10:49 Nss 1000ml IV 07/29/20 09:59 125 mls/hr .Q8H KIRTI Administration Insulin Human Regular 250 250 mls @ 9.4 mls/hr 06/29/20 12:00 06/29/20 15:32 units/ Sodium Chloride IV 07/29/20 11:59 9.4 units/hr .Q24H KIRTI 9.4 mls/hr Titration Protocol 9.4 UNITS/HR Potassium Chloride 10 meq in 100 mls @ 100 mls/hr 06/29/20 14:34 06/29/20 15:21 K Johnny / Wtr IV 06/29/20 16:33 100 mls/hr Q1H KIRTI Administration NPO Date Last Intake of Fluids: 06/28/20 Time Last Intake of Fluids: 11:55 Date Last Intake of Solids: 06/28/20 Time Last Intake of Solids: 11:55 Past Medical History Medical History CKD (chronic kidney disease), stage IV Congenital abnormality of kidney Diverticulosis DM type 2 (diabetes mellitus, type 2) Gout hx Hypertension Male stress incontinence Malignant neoplasm of prostate Prostate cancer Past Family History Family History Father Heart disease Family history of lung cancer Mother Family history of diabetes mellitus Past Surgical History Surgical History History of appendectomy History of colonoscopy S/P prostatectomy Social History Smoking Status: Former smoker Do You Dip or Chew Tobacco: No Hx Alcohol Use: No Hx Substance Use: No substance use type: does not use Physical Exam Vital Signs Last Vital Signs Temp 36.7 C 06/29/20 15:17 Pulse 86 06/29/20 15:17 Resp 22 06/29/20 15:17 BP 162/111 H 06/29/20 15:17 Pulse Ox 95 06/29/20 15:17 Testing Laboratory Results 06/29/20 09:00 06/29/20 12:56 PT 10.6 Seconds (9.0-12.0) 06/29/20 09:00 INR 1.0 (0.9-1.1) 06/29/20 09:00 APTT 24.5 Seconds (21.0-31.0) 06/29/20 09:00 Urine Color Yellow 06/29/20 10:35 Urine Appearance Clear (Clear) 06/29/20 10:35 Urine pH 6.0 (4.5-7.5) 06/29/20 10:35 Ur Specific [place] 1.017 (1.000-1.030) 06/29/20 10:35 Urine Protein 2+ (Negative) H 06/29/20 10:35 Urine Glucose (UA) 3+ (Negative) H 06/29/20 10:35 Urine Ketones Trace (Negative) H 06/29/20 10:35 Urine Nitrite Negative (Negative) 06/29/20 10:35 Ur Leukocyte Esterase Negative (Negative) 06/29/20 10:35 Urine WBC (Auto) 1-5 /hpf (0-5) 06/29/20 10:35 Urine RBC (Auto) 5-10 /hpf (0-4) H 06/29/20 10:35 U Hyaline Cast (Auto) 0 /lpf (0-5) 06/29/20 10:35 U Epithel Cells (Auto) 0-5 /lpf (0-5) 06/29/20 10:35 Urine Bacteria (Auto) Negative (Negative) 06/29/20 10:35 06/29/20 06/29/20 06/29/20 15:30 14:36 13:29 POC Glucose 336 H* 484 H* 411 H* 06/29/20 06/29/20 12:03 11:10 POC Glucose 461 H* 478 H*
[2020-06-29] MEDS ORDERED: ePHEDrine sulfate 50 MG/ML AMP IV PRN (16:29)
[2020-06-29] MEDS ORDERED: ONDANSETRON INJ 2 MG/ML 2 ML VIAL IV PRN (16:29)
[2020-06-29] MEDS ORDERED: ATROPINE SULFATE 0.1 MG/ML 10ML SYR IV PRN (16:29)
[2020-06-29] MEDS ORDERED: HYDROmorphone INJ 1 MG/ML SYRINGE IV PRN (16:29)
[2020-06-29] MEDS ORDERED: LABETALOL HCL IV 5 MG/ML 20ML IV PRN (16:29)
[2020-06-29] MEDS ORDERED: PHENYLEPHRINE 100MCG/ML 5ML SYR IV PRN (16:29)
[2020-06-29] MEDS ORDERED: MEPERIDINE HCL 25 MG/ML CARP/VIAL IV PRN (16:29)
[2020-06-29] MEDS ORDERED: PHENYLEPHRINE 100MCG/ML 5ML SYR ONE (16:53)
[2020-06-29] MEDS: INSULIN ASPART 100 UNITS/ML 3 ML PEN SC SCH ×2 (17:13→21:10)
--- NOTE | 2020-06-29 17:19 | Operative Report ---
PG Post Operative Report Pre & Post Diagnosis Operation Date: 06/29/20 12:00 Pre-Op Diagnosis: DKA,HYDRONEPHROSIS,DIVERTICULIS I identified the patient and participated in the time-out.: Yes Procedure Operation Date: 06/29/20 12:00 Actual Procedures p Cystoscopy, Left Ureteral Stent Placement, Left Ureteroscopy, Laser Lithotripsy(Left) - Aravind Crowley MD Surgeon Anthony Crowley MD Agronomy Instructor none Estimated Blood Loss 0 Findings Consistent with Post-Op Diagnosis Specimens none Description of Procedure The patient was identified in the preoperative holding area, appropriate informed consents were reviewed and completed and the patient was transferred to the operative suite. Upon arrival, appropriate antibiotics and anesthesia were administered and the patient was placed in dorsal lithotomy position and prepped and draped in sterile fashion. To begin the case to pass a 22 Czech cystoscope with 30 degree lens. Of note, he is status post prostatectomy and has no evidence of bladder neck contracture or urethral stricturing. His bladder was inspected and healthy. He has several small mounds of tissue at the bladder neck which are consistent with mild irritation from his anastomosis. Ureteral orifices were noted to be in orthotopic position. 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 This left ureter contains the stone we are targeting and I intubated that left UO with a sensor wire and a 10 Czech double-lumen catheter. The wire followed the anticipated course of the ureter crossing the midline and progressing to the right kidney. I then reentered the bladder with a semirigid ureteroscope and guided into the distal ureter. Several centimeters above the bladder I encountered a yellow appearing calculus that was obstructing the lumen of the ureter. I fragmented this into pieces deemed safe for spontaneous passage. I attempted to irrigate as many of these pieces out of the ureter as possible and I concluded the case by placing a 6 Czech by 22-30 cm multilength ureteral stent. There was ample length to reach the kidney when he had a good double curl in the kidney as well as the bladder. The case was subsequently concluded, his bladder was emptied and he was extubated and taken to the PACU in stable condition. There were no complications. I attest to the content of the Intraoperative Record and any orders documented therein. Any exceptions are noted below.
[2020-06-29] MEDS: PIPERACILLIN/TAZOBACTAM 3.375 GM in DEXTROSE 5% 100 ML IV SCH (17:30)
--- NOTE | 2020-06-29 17:57 | Anesthesiology Progress Note ---
Date of Service June 29, 2020 Anesthesia Post Procedure Vital Signs Vital Signs: Temp Pulse Pulse Resp BP BP BP 06/29/20 17:45 36.3 C L 89 22 129/82 06/29/20 17:35 84 14 149/84 H 06/29/20 17:25 80 18 82/54 L 06/29/20 17:16 36.3 C L 81 18 88/60 L 06/29/20 15:17 36.7 C 86 22 162/111 H 06/29/20 14:59 88 06/29/20 11:49 36.7 C 06/29/20 11:46 80 06/29/20 11:45 80 18 178/110 H 179/110 H 06/29/20 09:36 06/29/20 09:07 36.9 C 78 18 191/116 H Pulse Ox 06/29/20 17:45 94 06/29/20 17:35 97 06/29/20 17:25 98 06/29/20 17:16 99 06/29/20 15:17 95 06/29/20 14:59 06/29/20 11:49 06/29/20 11:46 06/29/20 11:45 99 06/29/20 09:36 96 06/29/20 09:07 96 Transfer of Care Handoff Completed per policy Notes Mental Status: alert / awake / arousable Patient Amnestic to Procedure: Yes Nausea / Vomiting: adequately controlled Pain: adequately controlled Airway Patency, RR, SpO2: stable & adequate BP & HR: stable & adequate Hydration State: stable & adequate Anesthetic Complications: no major complications apparent and Pt Satisfied with anesthetic care Notes: The patient is awake and comfortable. His vital signs are stable. The patient remains on an insulin drip. Latest BSG is 269.
--- NOTE | 2020-06-29 18:53 | Fluoroscopy Report ---
FL KUB HISTORY: 65 years-old Male LT CYSTO/LASER/STENT follow-up study in a patient with ureteral calculus and cross fused renal ectopia. COMPARISON: CT abdomen and pelvis 06/29/2020 TECHNIQUE: 2 spot fluoroscopic images of the abdomen and pelvis were obtained utilizing 4.5 seconds f luoroscopy time FINDINGS: There is a right ureteral stent is noted, proximal portion coiled within the abdominal right lower qu adrant which crosses the midline, distal portion noted within the region of the urinary bladder. No d efinite renal or ureteral calculi identified. IMPRESSION: Fluoroscopic assistance as above. Please see operative report for further details. ACT 112: Negative or not required by law. The above report was generated using voice recognition software. It may contain grammatical, syntax o r spelling errors. Electronically signed by: Chau Rodriguez M.D. 06/29/2020 6:52 PM
[2020-06-29 19:14] LABS: BUN Creatinine Ratio 11.7 (10-20); Calcium 8.7 mg/dl (8.5-10.1); Creatinine Clr Calc Pharmacy 28.1 ml/min; Est GFR (African American) 33.6; Magnesium 1.8 mg/dl (1.8-2.4); Phosphorus 2.1 mg/dl (2.5-4.9)
[2020-06-29] MEDS: D5W AND 1/2NSS + 20MEQ KCL 20 MEQ/1,000 ML BAG IV SCH (19:48)
--- NOTE | 2020-06-29 19:59 | Anesthesiology Progress Note ---
Date of Service June 29, 2020 Anesthesia Post Procedure Vital Signs Vital Signs: Temp Pulse Pulse Resp BP BP BP 06/29/20 19:00 77 17 122/81 06/29/20 18:45 36.7 C 79 18 143/84 H 06/29/20 18:30 36.6 C 83 16 145/88 H 06/29/20 18:20 85 06/29/20 18:15 36.7 C 90 16 153/99 H 06/29/20 17:45 36.3 C L 89 22 129/82 06/29/20 17:35 84 14 149/84 H 06/29/20 17:25 80 18 82/54 L 06/29/20 17:16 36.3 C L 81 18 88/60 L 06/29/20 15:17 36.7 C 86 22 162/111 H 06/29/20 14:59 88 06/29/20 11:49 36.7 C 06/29/20 11:46 80 06/29/20 11:45 80 18 178/110 H 179/110 H 06/29/20 09:36 06/29/20 09:07 36.9 C 78 18 191/116 H Pulse Ox 06/29/20 19:00 96 06/29/20 18:45 97 06/29/20 18:30 96 06/29/20 18:20 06/29/20 18:15 95 06/29/20 17:45 94 06/29/20 17:35 97 06/29/20 17:25 98 06/29/20 17:16 99 06/29/20 15:17 95 06/29/20 14:59 06/29/20 11:49 06/29/20 11:46 06/29/20 11:45 99 06/29/20 09:36 96 06/29/20 09:07 96 Transfer of Care Handoff Completed per policy Notes Mental Status: alert / awake / arousable Patient Amnestic to Procedure: Yes Nausea / Vomiting: adequately controlled Pain: adequately controlled Airway Patency, RR, SpO2: stable & adequate BP & HR: stable & adequate Hydration State: stable & adequate Anesthetic Complications: no major complications apparent
[2020-06-29] MEDS: ACETAMINOPHEN 325 MG TAB PO PRN (20:17)
[2020-06-29 20:46] LABS: BUN Creatinine Ratio 11.3 (10-20); Calcium 9.1 mg/dl (8.5-10.1); Creatinine Clr Calc Pharmacy 27.7 ml/min; Est GFR (African American) 33.1; Est GFR (Non-African American) 28.6; Magnesium 1.9 mg/dl (1.8-2.4); Phosphorus 1.6 mg/dl (2.5-4.9); Potassium 4.2 mmol/L (3.5-5.1)
[2020-06-30 00:54] LABS: BUN Creatinine Ratio 12.8 (10-20); Calcium 8.4 mg/dl (8.5-10.1); Creatinine Clr Calc Pharmacy 32.4 ml/min; Est GFR (African American) 39.9; Est GFR (Non-African American) 34.4; Magnesium 1.7 mg/dl (1.8-2.4); Phosphorus 1.8 mg/dl (2.5-4.9); Potassium 3.8 mmol/L (3.5-5.1)
[2020-06-30] MEDS: PIPERACILLIN/TAZOBACTAM 3.375 GM in DEXTROSE 5% 100 ML IV SCH ×4 (01:10→23:33)
[2020-06-30] MEDS: DEXTROSE 50% 50 ML SYRINGE IV PRN ×2 (03:30→03:45)
[2020-06-30 04:19] LABS: Hematocrit (blood only) 37.2 % (42-52); Hemoglobin 12.8 g/dL (14.0-18.0); Mean Corpuscular Hemoglobin 30.6 pg (25-34); Mean Corpuscular Hgb Conc 34.4 g/dL (32-36); Mean Platelet Volume 11.6 fL (7.4-10.4); Platelet Count 131 K/uL (130-400); RDW Coefficient of Variation 13.6 % (11.5-14.5); RDW Standard Deviation 44.4 fL (36.4-46.3); Red Blood Count 4.18 M/uL (4.7-6.1); White Blood Count 13.17 K/uL (4.8-10.8)
[2020-06-30] MEDS: D5W AND 1/2NSS + 20MEQ KCL 20 MEQ/1,000 ML BAG IV SCH (04:28)
[2020-06-30 04:50] LABS: BUN Creatinine Ratio 12.2 (10-20); Creatinine Clr Calc Pharmacy 32.7 ml/min; Est GFR (African American) 40.4; Est GFR (Non-African American) 34.9; Magnesium 1.7 mg/dl (1.8-2.4); Phosphorus 1.8 mg/dl (2.5-4.9); Potassium 3.6 mmol/L (3.5-5.1)
[2020-06-30] MEDS ORDERED: MAGNESIUM SULFATE / D5W 1 GM/100 ML BAG IV ONE (05:04)
[2020-06-30 06:00] LABS: Estimated Average Glucose 338 mg/dl; Hemoglobin A1C 13.4 % (4.5-5.6)
--- NOTE | 2020-06-30 06:04 | Electrocardiogram Report ---
Test Reason : Blood Pressure : / mmHG Vent. Rate : 073 BPM Atrial Rate : 073 BPM P-R Int : 206 ms QRS Dur : 090 ms QT Int : 420 ms P-R-T Axes : 008 -16 034 degrees QTc Int : 462 ms Normal sinus rhythm Inferior infarct , age undetermined Abnormal ECG When compared with ECG of 08-JUL-2019 15:19, Inferior infarct is now Present QT has lengthened Confirmed by Thomas Burns ([id number]) on 06/30/2020 6:04:01 AM Referred By: REFERRED SELF Confirmed By:Thomas Burns
[2020-06-30] MEDS ORDERED: POTASSIUM PHOS 3 MMOL/1 ML INFUSION IV STA ×3 (07:57→20:19)
[2020-06-30] MEDS ORDERED: POTASSIUM PHOSPHATE 9 MMOL in SODIUM CHLORIDE 0.9% 250 ML IV ONE ×2 (08:15→09:45)
--- NOTE | 2020-06-30 08:41 | Urology Progress Note ---
Date of Service June 30, 2020 Assessment & Plan (1) Kidney stone: stone treated yesterday stent in place no further acute intervention required focus on other issues (DKA, etc) plan for outpt stent removal (we will be scheduling this) please let us know if there are any further questions during this hospitalization Admission and Anticipated Discharge Date Admission Date: June 29, 2020 Subjective subjectively much better today after URS/LL and stent yesterday Cr has improved to better than his recent baseline still dealing with other issues - acute and chronic Physical Exam Constitutional: well developed and well nourished Respiratory: no respiratory distress Cardiovascular: Extremities: no pedal edema Gastrointestinal (Abdomen): Inspection/Auscultation: abdomen normal to inspection Results & Data ([facility]) Vital Signs (Past 12 Hours) Vital Signs Temp Pulse Pulse Resp BP Pulse Ox 06/30/20 07:00 37 C 86 18 158/113 H 98 06/30/20 05:00 36.8 C 86 18 142/99 H 95 06/30/20 03:00 36.9 C 84 18 133/91 96 06/29/20 23:16 37.0 C 82 18 129/80 96 06/29/20 23:00 37 C 81 12 129/80 94 06/29/20 22:59 87 06/29/20 22:00 86 18 159/105 H 96 06/29/20 21:00 82 18 147/94 H 95 PG Care Time/CCT Total # of Minutes Spent Total Time Spent with Patient: Total time spent is greater than 50% in coor dination of care (as documented) at patient's floor/unit and/or counseling patient: Coding Level of Care Code 21109 Subseq Hosp Care Lvl 2 Diagnoses Kidney stone N20.0
[2020-06-30 08:45] LABS: BUN Creatinine Ratio 10.4 (10-20); Calcium 8.6 mg/dl (8.5-10.1); Creatinine Clr Calc Pharmacy 32.5 ml/min; Est GFR (African American) 40.2; Est GFR (Non-African American) 34.6; Magnesium 2.2 mg/dl (1.8-2.4); Potassium 3.5 mmol/L (3.5-5.1)
[2020-06-30] MEDS: INSULIN ASPART 100 UNITS/ML 3 ML PEN SC SCH ×5 (08:54→22:20)
[2020-06-30 08:57] LABS: Beta-Hydroxybutyrate 0.51 mg/dl (0.2-2.81); Phosphorus 0.9 mg/dl (2.5-4.9)
[2020-06-30] MEDS ORDERED: DC IV INSULIN INFUSION 1 EA DEVI SCH (11:30)
[2020-06-30] MEDS ORDERED: INSULIN GLARGINE SOLOSTAR 100 UNITS/ML 3 ML PEN SC ONE (11:30)
--- NOTE | 2020-06-30 14:27 | Pharmacy Report ---
Pharmacy Glycemic Short Note 2 - Date of Service June 30, 2020 - Glycemic Short BSG Results (Last 24 hours): 06/29/20 06/29/20 06/29/20 12:56 14:36 15:30 Glucose 430 H* POC Glucose 484 H* 336 H* 06/29/20 06/29/20 06/29/20 16:25 17:19 18:32 Glucose 205 H POC Glucose 277 H 269 H 06/29/20 06/29/20 06/29/20 18:36 19:33 20:03 Glucose 176 H POC Glucose 200 H 199 H 06/29/20 06/29/20 06/29/20 20:38 21:40 22:41 Glucose POC Glucose 169 H 147 H 130 H 06/29/20 06/30/20 06/30/20 23:27 00:18 00:28 Glucose 122 H POC Glucose 135 H 131 H 06/30/20 06/30/20 06/30/20 04:04 04:05 04:10 Glucose 201 H POC Glucose 133 H 171 H 06/30/20 06/30/20 06/30/20 05:05 06:05 07:03 Glucose POC Glucose 196 H 176 H 204 H 06/30/20 06/30/20 06/30/20 07:58 07:58 09:04 Glucose 173 H POC Glucose 164 H 231 H 06/30/20 06/30/20 06/30/20 10:01 11:00 11:59 Glucose POC Glucose 221 H 232 H 155 H 06/30/20 13:06 Glucose POC Glucose 281 H OUTPATIENT ANTIDIABETIC REGIMEN: * Per Provider as reviewed from outside EMR * Lantus 20 units qam * Novolog 5 units TID * A1c: 13.4% (06/30/20) ASSESSMENT: 06/30: * Patient DKA/HHS appeared to be resolved this morning and thus IV to SQ insulin transition was initiated and dextrose containing fluids were d/c'd . Patient's infusion rate and BSG have been labile since this morning, despite weight based stress of 3 dosing. Patient may require additional fluids to enhance the response to insulin, if rehydration inadequate. Patient also receiving broad spectrum antibiotics for diverticulitis and an obstructing kidney stone likely contributing to stress induced hyperglycemia. * Discussed plan with RN and provider. First lantus dose was ordered at 1130. Infusion to be d/c'd once the infusion calculator indicates to stop and infusion rate < 2 units/ hr, or 6 hours after first insulin dose (1730), whichever is first. I did discuss with RN that if infusion rate is > 2.5 units/hr at the 6 hour aiden than infusion will likely need to continue and glycemic plan will be re-evaluated. 06/29 * Patient presenting in DKA/HHS with possible diverticulitis and infected kidney stone, initiated on zosyn. Patient was started on a weight based DKA IV insulin regimen. * NS currently running at 125 mL/hr. Discussed with Provider and she will make necessary fluid adjustments based on subsequent BMPs (ordered q4h overnight). * Patient NPO PLAN FOR INPATIENT GLYCEMIC CONTROL: * Hold outpatient oral diabetes medications * Continue IV insulin infusion until held per calculator and infusion rate < 2 units/hr or 6 hours after first lantus dose (whichever is first). Infusion will continue if rate still remains high * Basal Insulin * Lantus 30 units SQ X 1 @1130 * Lantus scale this evening (8,12,or 17 units based on BSG-See MAR for details)- May dosed earlier to assist with drip transition * Bolus Insulin * NovoLog per scale ACHS or Q6hrs while NPO (Use insulin infusion calculator while infusion remains on, below scale to start at HS if infusion d/c'd) * Goal Range: Low 110 mg/dL - High 140 mg/dL * Correction Factor: 30 mg/dL/unit * Nutritional / Prandial insulin per carb ratio of 1 unit per 10 grams CHO consumed
--- NOTE | 2020-06-30 19:08 | Hospitalist Progress Note ---
Date of Service June 30, 2020 Assessment & Plan (1) DKA (diabetic ketoacidoses): History of diabetes mellitus Presents with blood sugars 500, bicarb 19, pH 7.2, urine positive for ketones Possible secondary to acute illness, infected ureteric stone, acute diverticulitis Patient is continued with IV insulin drip as per DKA protocol, appreciate pharmacy glycemic management (2) DM type 2 (diabetes mellitus, type 2): (3) CKD (chronic kidney disease), stage IV: History of CKD stage IV, now with improvement to CKD stage IIIb Improvement likely due to surgery/prostatectomy which alleviated some of obstructive symptoms Try to avoid NSAIDs, IV contrast and other nephrotoxic agents His baseline creatinine usually was around 3.2-3.5 Current creatinine 1.9 (4) Hydronephrosis concurrent with and due to calculi of kidney and ureter: On CT, there is hydronephrosis and 4 mm renal stone in left ureter Patient has history of congenital kidney abnormality Follows with urology for history of prostate cancer Now presents with abdominal pain, left flank pain radiating to the left groin Urology consulted -status post urologic procedure/ureteric stent placement (5) Diverticulitis: Patient presented with abdominal pain, and diarrhea CT showing acute diverticulitis of descending colon and sigmoid colon On IV Zosyn GI consulted -patient history of recent colonoscopy in 2019, known history of diverticulosis Recommend to continue antibiotics, IV fluids, supportive management with antiemetics and analgesics Diet advanced to clears (6) HTN (hypertension): Patient is on lisinopril 5 mg daily However states he did not have medication in a long time For now we will continue to hold, should be restarted on discharge (7) Anemia: Chronic anemia due to CKD No signs of bleeding (8) Prostate cancer: (9) S/P prostatectomy: Patient underwent prostatectomy with Dr. Robert, in July 2019 Continues to follow with urology as outpatient Code: Full DVTppx: SCDs Admission and Anticipated Discharge Date Admission Date: June 29, 2020 Subjective no complain of abdominal pain or discomfort did not had any bowel movement since admission no fever or chills feels well Physical Exam Constitutional: WD/WN, vitals as above Eyes: PERRL, conjunctivae normal, anicteric sclerae ENMT: external ear and nose normal, oropharynx normal Neck: trachea midline, no thyromegaly Respiratory: normal respiratory effort, lungs clear to auscultation Cardiovascular: RRR, no murmur, no edema Gastrointestinal (Abdomen): normal bowel sounds, soft, nontender, no hepatosplenomegaly Musculoskeletal: no cyanosis or clubbing, extremities motor strength 5/5 Skin: no rashes, warm and dry Neurologic: PERRL, EOMI, accommodation nl, no face palsy, no dysarthria Psychiatric: A+Ox3, euthymic affect Results & Data Results & Data ([facility]) Vital Signs (Past 12 Hours) Vital Signs Temp Pulse Pulse Resp BP BP Pulse Ox 06/30/20 19:00 91 H 14 148/107 H 95 06/30/20 15:59 37.2 C 91 H 18 156/105 H 95 06/30/20 14:45 90 06/30/20 11:00 36.9 C 88 18 138/104 H 96 06/30/20 08:00 80
[2020-06-30 19:44] LABS: BUN Creatinine Ratio 8.9 (10-20); Calcium 8.2 mg/dl (8.5-10.1); Creatinine Clr Calc Pharmacy 33.4 ml/min; Est GFR (African American) 41.4; Est GFR (Non-African American) 35.7; Potassium 3.6 mmol/L (3.5-5.1)
[2020-06-30 19:53] LABS: Phosphorus 1.9 mg/dl (2.5-4.9)
[2020-06-30] MEDS ORDERED: hydrALAZINE HCL 20 MG/ML VIAL IV PRN (20:14)
[2020-06-30] MEDS ORDERED: POTASSIUM PHOSPHATE 15 MMOL in SODIUM CHLORIDE 0.9% 250 ML IV ONE (20:30)
[2020-06-30] MEDS ORDERED: INSULIN ASPART 100 UNITS/ML 3 ML PEN SC SCH (21:00)
[2020-06-30] MEDS: INSULIN GLARGINE SOLOSTAR 100 UNITS/ML 3 ML PEN SC SCH (21:02)
[2020-06-30] MEDS: POT PHOSPHATE MONOBASIC W/ SOD TAB PO SCH (22:17)
[2020-06-30] MEDS: INSULIN REGULAR 250 UNITS in SODIUM CHLORIDE 0.9% 247.5 ML IV SCH (22:19)
[2020-07-01] MEDS ORDERED: INSULIN ASPART 100 UNITS/ML 3 ML PEN SC SCH (02:00)
[2020-07-01] MEDS: ACETAMINOPHEN 325 MG TAB PO PRN ×2 (06:17→11:29)
[2020-07-01] MEDS ORDERED: cloNIDine HCL 0.1 MG TAB PO ONE ×2 (06:32→11:45)
[2020-07-01] MEDS: INSULIN ASPART 100 UNITS/ML 3 ML PEN SC SCH ×4 (08:02→21:36)
[2020-07-01] MEDS: INSULIN GLARGINE SOLOSTAR 100 UNITS/ML 3 ML PEN SC SCH ×2 (08:16→21:34)
[2020-07-01] MEDS: POT PHOSPHATE MONOBASIC W/ SOD TAB PO SCH ×4 (11:31→21:36)
[2020-07-01] MEDS: PIPERACILLIN/TAZOBACTAM 3.375 GM in DEXTROSE 5% 100 ML IV SCH (11:44)
--- NOTE | 2020-07-01 12:18 | Pharmacy Report ---
Pharmacy Glycemic Short Note 2 - Date of Service July 01, 2020 - Glycemic Short BSG Results (Last 24 hours): 06/30/20 06/30/20 06/30/20 03:21 03:43 13:06 Glucose POC Glucose 98 136 H 281 H 06/30/20 06/30/20 06/30/20 14:02 14:59 16:02 Glucose POC Glucose 233 H 152 H 100 H 06/30/20 06/30/20 06/30/20 16:20 19:15 20:34 Glucose 207 H POC Glucose 104 H 153 H 07/01/20 07/01/20 07/01/20 02:36 07:28 11:19 Glucose POC Glucose 113 H 140 H 222 H OUTPATIENT ANTIDIABETIC REGIMEN: * Per Provider as reviewed from outside EMR * Lantus 20 units qam * Novolog 5 units TID * A1c: 13.4% (06/30/20) ASSESSMENT: 07/01: * Patient was able to transition of the infusion last evening and blood sugars have subsequently been well controlled. Will continue with a BID lantus scale, with doses slightly increased for today. Patient received a total of 42 units of lantus yesterday, in addition to novolog coverage and the insulin infusion. * Lunch BSG was mildly elevated today, will tighten NovoLog carb coverage. Patient is tolerating a full liquid diet. * Patient remains on zosyn. 06/30: * Patient DKA/HHS appeared to be resolved this morning and thus IV to SQ insulin transition was initiated and dextrose containing fluids were d/c'd . Patient's infusion rate and BSG have been labile since this morning, despite weight based stress of 3 dosing. Patient may require additional fluids to enhance the response to insulin, if rehydration inadequate. Patient also receiving broad spectrum antibiotics for diverticulitis and an obstructing kidney stone likely contributing to stress induced hyperglycemia. * Discussed plan with RN and provider. First lantus dose was ordered at 1130. Infusion to be d/c'd once the infusion calculator indicates to stop and infusi on rate < 2 units/ hr, or 6 hours after first insulin dose (1730), whichever is first. I did discuss with RN that if infusion rate is > 2.5 units/hr at the 6 hour aiden than infusion will likely need to continue and glycemic plan will be re-evaluated. 06/29 * Patient presenting in DKA/HHS with possible diverticulitis and infected kidney stone, initiated on zosyn. Patient was started on a weight based DKA IV insulin regimen. * NS currently running at 125 mL/hr. Discussed with Provider and she will make necessary fluid adjustments based on subsequent BMPs (ordered q4h overnight). * Patient NPO PLAN FOR INPATIENT GLYCEMIC CONTROL: * Hold outpatient oral diabetes medications * Basal Insulin * Lantus scale this evening (10,14,or 18 units based on BSG-See MAR for details) * Bolus Insulin * NovoLog per scale ACHS or Q6hrs while NPO * Goal Range: Low 110 mg/dL - High 140 mg/dL * Correction Factor: 30 mg/dL/unit * Nutritional / Prandial insulin per carb ratio of 1 unit per 9 grams CHO consumed
[2020-07-01] MEDS ORDERED: lisinopril 5 MG TAB PO ONE (14:15)
--- NOTE | 2020-07-01 15:11 | Hospitalist Progress Note ---
Date of Service July 01, 2020 Assessment & Plan (1) DKA (diabetic ketoacidoses): History of diabetes mellitus/poorly controlled Hb A1c 13 Presents with blood sugars 500, bicarb 19, pH 7.2, urine positive for ketones Possible secondary to acute illness, infected ureteric stone, acute dive rticulitis was treated with IV insulin drip as per DKA protocol, appreciate pharmacy glycemic management now transitioned to SC Lantus and SSI needs continued follow up with [facility] (2) DM type 2 (diabetes mellitus, type 2): (3) CKD (chronic kidney disease), stage IV: History of CKD stage IV, now with improvement to CKD stage IIIb Improvement likely due to surgery/prostatectomy which alleviated some of obstructive symptoms renal function stable (4) Hydronephrosis concurrent with and due to calculi of kidney and ureter: On CT, there is hydronephrosis and 4 mm renal stone in left ureter Patient has history of congenital kidney abnormality Follows with urology for history of prostate cancer Now presents with abdominal pain, left flank pain radiating to the left groin Urology consulted -status post urologic procedure/ureteric stent placement (5) Diverticulitis: Patient presented with abdominal pain, and diarrhea CT showing acute diverticulitis of descending colon and sigmoid colon abdominal pain and discomfort has resolved diet advanced to solid /low fiber diet today GI consulted -patient history of recent colonoscopy in 2018, known history of diverticulosis Abx changed to PO (6) HTN (hypertension): BP remains elevated resume Lisinopril 5 mg daily (7) Anemia: Chronic anemia due to CKD (8) Prostate cancer: (9) S/P prostatectomy: Patient underwent prostatectomy with Dr. Robert, in July 2019 Continues to follow with urology as outpatient Code: Full DVTppx: SCDs DISPOSITION : plan to dc home tomorrow Admission and Anticipated Discharge Date Admission Date: June 29, 2020 Subjective doing well no complain of abdominal pain , no nausea /vomiting diet advanced to solid BSG has been well controlled Physical Exam Constitutional: WD/WN, vitals as above Eyes: PERRL, conjunctivae normal, anicteric sclerae ENMT: external ear and nose normal, oropharynx normal Neck: trachea midline, no thyromegaly Respiratory: normal respiratory effort, lungs clear to auscultation Cardiovascular: RRR, no murmur, no edema Gastrointestinal (Abdomen): normal bowel sounds, soft, nontender, no hepatosplenomegaly Musculoskeletal: no cyanosis or clubbing, extremities motor strength 5/5 Skin: no rashes, warm and dry Neurologic: PERRL, EOMI, accommodation nl, no face palsy, no dysarthria Psychiatric: A+Ox3, euthymic affect Results & Data Results & Data ([facility]) Vital Signs (Past 12 Hours) Vital Signs Temp Pulse Resp BP Pulse Ox 07/01/20 11:00 36.6 C 93 H 18 160/111 H 96 07/01/20 07:29 36.5 C 89 18 180/115 H 96
[2020-07-01] MEDS: CIPROFLOXACIN 250 MG TAB PO SCH (19:24)
[2020-07-01] MEDS: metroNIDAZOLE 250 MG TAB PO SCH (19:24)
[2020-07-02 07:50] LABS: BUN Creatinine Ratio 9.4 (10-20); Calcium 8.3 mg/dl (8.5-10.1); Creatinine Clr Calc Pharmacy 31.7 ml/min; Est GFR (Non-African American) 33.6; Magnesium 2.1 mg/dl (1.8-2.4); Potassium 3.5 mmol/L (3.5-5.1)
[2020-07-02 08:01] LABS: Phosphorus 3.2 mg/dl (2.5-4.9)
[2020-07-02] MEDS ORDERED: lisinopril 5 MG TAB PO SCH (09:00)
[2020-07-02] MEDS: POT PHOSPHATE MONOBASIC W/ SOD TAB PO SCH ×2 (09:10→13:06)
[2020-07-02] MEDS: metroNIDAZOLE 250 MG TAB PO SCH ×2 (09:10→13:06)
[2020-07-02] MEDS: CIPROFLOXACIN 250 MG TAB PO SCH (09:10)
[2020-07-02] MEDS: INSULIN ASPART 100 UNITS/ML 3 ML PEN SC SCH ×2 (09:13→13:07)
[2020-07-02] MEDS: INSULIN GLARGINE SOLOSTAR 100 UNITS/ML 3 ML PEN SC SCH (09:13)
--- NOTE | 2020-07-02 11:33 | Pharmacy Report ---
Pharmacy Glycemic Short Note 2 - Date of Service July 02, 2020 - Glycemic Short BSG Results (Last 24 hours): 07/01/20 07/01/20 07/02/20 17:23 21:09 06:41 Glucose 154 H POC Glucose 205 H 180 H 07/02/20 08:19 Glucose POC Glucose 141 H OUTPATIENT ANTIDIABETIC REGIMEN: * Per Provider as reviewed from outside EMR * Lantus 20 units qam * Novolog 5 units TID * A1c: 13.4% (06/30/20) ASSESSMENT: 07/02: * BSGs elevated yesterday, 140, 222, 205, and 180 mg/dL * Patient received 51 units of insulin yesterday * 24 units of basal and 27 units of prandial/correctional insulin * Fasting BSG of 141 mg/dL * Patient will likely receive increased dose of Lantus today based on scale * IV Zosyn changed to PO ciprofloxacin and metronidazole yesterday 07/01: * Patient was able to transition of the infusion last evening and blood sugars have subsequently been well controlled. Will continue with a BID lantus scale, with doses slightly increased for today. Patient received a total of 42 units of lantus yesterday, in addition to novolog coverage and the insulin infusion. * Lunch BSG was mildly elevated today, will tighten NovoLog carb coverage. Patient is tolerating a full liquid diet. * Patient remains on zosyn. 06/30: * Patient DKA/HHS appeared to be resolved this morning and thus IV to SQ insulin transition was initiated and dextrose containing fluids were d/c'd . Patient's infusion rate and BSG have been labile since this morning, despite weight based stress of 3 dosing. Patient may require additional fluids to enhance the response to insulin, if rehydration inadequate. Patient also receiving broad spectrum antibiotics for diverticulitis and an obstructing kidney stone likely contributing to stress induced hyperglycemia. * Discussed plan with RN and provider. First lantus dose was ordered at 1130. Infusion to be d/c'd once the infusion calculator indicates to stop and infusion rate < 2 units/ hr, or 6 hours after first insulin dose (1730), whichever is first. I did discuss with RN that if infusion rate is > 2.5 units/hr at the 6 hour aiden than infusion will likely need to continue and glycemic plan will be re-evaluated. 06/29 * Patient presenting in DKA/HHS with possible diverticulitis and infected kidney stone, initiated on zosyn. Patient was started on a weight based DKA IV insulin regimen. * NS currently running at 125 mL/hr. Discussed with Provider and she will make necessary fluid adjustments based on subsequent BMPs (ordered q4h overnight). * Patient NPO PLAN FOR INPATIENT GLYCEMIC CONTROL: * Hold outpatient oral diabetes medications * Basal Insulin * Continue Lantus scale 10-18 units BID (see EHR for details) * Bolus Insulin * NovoLog per scale ACHS or Q6hrs while NPO * Goal Range: Low 110 mg/dL - High 140 mg/dL * Correction Factor: 25 mg/dL/unit * Nutritional / Prandial insulin per carb ratio of 1 unit per 8 grams CHO consumed
--- NOTE | 2020-07-02 16:30 | Hospitalist Progress Note ---
Date of Service July 02, 2020 Assessment & Plan (1) DKA (diabetic ketoacidoses): has resolved pt was not on any meds for past few months due no having insurance recently established with [facility]TM /diabetic clinic at [facility] clinic was started on Insulin Lantus and novolog admitted with DKA due to Possible secondary to acute illness, infected ureteric stone, acute diverticulitis was treated with IV insulin drip as per DKA protocol, appreciate pharmacy glycemic management has been on SC lantus and SSI -BSG has been stable appreciate input from special education paraeducator pt will be discharged with previous dose of Lantus will be followed up with Diabetes clinic closely History of diabetes mellitus/poorly controlled Hb A1c 13 (2) DM type 2 (diabetes mellitus, type 2): poorly controlled Hb A1c 13 management as outline above (3) CKD (chronic kidney disease), stage IV: History of CKD stage IV, now with improvement to CKD stage IIIb Improvement likely due to surgery/prostatectomy which alleviated some of obstructive symptoms cr 2.2 repeat BMP in a week pt will benefit with Nephrology follow up for diabetic kidney disease (4) Hydronephrosis concurrent with and due to calculi of kidney and ureter: On CT, there is hydronephrosis and 4 mm renal stone in left ureter Patient has history of congenital kidney abnormality Follows with urology for history of prostate cancer Now presents with abdominal pain, left flank pain radiating to the left groin Urology consulted -status post urologic procedure/ureteric stent placement (5) Diverticulitis: Patient presented with abdominal pain, and diarrhea CT showing acute diverticulitis of descending colon and sigmoid colon abdominal pain and discomfort has resolved diet advanced to solid /low fiber diet today GI consulted -patient history of recent colonoscopy in 2019, known history of diverticulosis Abx changed to PO discharged home today with PO cipro and Flagyl repeat colonoscopy in 4-6 weeks (6) HTN (hypertension): resumed Lisinopril 5 mg daily repeat BMP in a week (7) Anemia: Chronic anemia due to CKD (8) Prostate cancer: (9) S/P prostatectomy: Patient underwent prostatectomy with Dr. Robert, in July 2019 Continues to follow with urology as outpatient Code: Full DVTppx: SCDs DISPOSITION : discharged pt home today Admission and Anticipated Discharge Date Admission Date: June 29, 2020 Subjective offers no complain no abdominal pain has been tolerating solid diet no fever or chills Physical Exam Constitutional: WD/WN, vitals as above Eyes: PERRL, conjunctivae normal, anicteric sclerae ENMT: external ear and nose normal, oropharynx normal Neck: trachea midline, no thyromegaly Respiratory: normal respiratory effort, lungs clear to auscultation Cardiovascular: RRR, no murmur, no edema Gastrointestinal (Abdomen): normal bowel sounds, soft, nontender, no hepatosplenomegaly Musculoskeletal: no cyanosis or clubbing, extremities motor strength 5/5 Skin: no rashes, warm and dry Neurologic: PERRL, EOMI, accommodation nl, no face palsy, no dysarthria Psychiatric: A+Ox3, euthymic affect Results & Data Results & Data ([facility]) Vital Signs (Past 12 Hours) Vital Signs Temp Pulse Resp BP Pulse Ox 07/02/20 07:42 36.8 C 81 16 129/83 92
--- NOTE | 2020-07-02 16:34 | Discharge Summary ---
Date of Service July 02, 2020 Admission HPI Per Admitting Provider Patient is a 65-year-old male, with history of prostate cancer, status post prostatectomy by Dr. Robert, in July 2019, CKD stage IV, now improved to CKD stage IIIb, follows with Dr. Wheeler, hypertension in the setting of CKD, hyperlipidemia, diabetes mellitus type 2, chronic anemia, history of congenital abnormality of kidney and diverticulosis, history of urinary incontinence, who now presents with abdominal pain, nausea and diarrhea. Patient woke up this morning, and reports he felt well, drove his to work early in the morning, and then developed left flank pain radiating to the left groin, pain is sharp, and severe, patient became nauseous, and also reported diarrhea that started this morning. Denied any blood in her stool. He presented to emergency room. In the ED he was found to be hyperglycemic, with blood sugars in the 500s. Bicarb was low 19, and pH low at 7.2. Patient was started on IV insulin, for DKA. CT abdomen pelvis was obtained, and showed hydronephrosis of the lower pole with perinephric infiltration due to 4 mm distal left ureteral calculus. Patient has history of congenital renal disease and CKD, which somewhat improved after prostatectomy. CT also showed acute diverticulitis at the junction of the descending colon and sigmoid colon. Patient denies any recent fevers or chills, chest pain, shortness of breath, any sick contacts. He continues to have urinary incontinence, however denies any burning with urination. He does continue to complain of pain that is now mostly in left groin area. Patient received morphine for pain, IV fluids as well. Patient started on IV Zosyn for diverticulitis. Hospitalist team was contacted for further management. Principal Diagnosis ACUTE DIVERTICULITIS POORLY CONTROLLED DIABETES -DKA RENAL STONE Discharge Exam Constitutional WD/WN, vitals as above Eyes PERRL, conjunctivae normal, anicteric sclerae ENMT external ear and nose normal, oropharynx normal Neck trachea midline, no thyromegaly Respiratory normal respiratory effort, lungs clear to auscultation Cardiovascular RRR, no murmur, no edema Gastrointestinal (Abdomen) normal bowel sounds, soft, nontender, no hepatosplenomegaly Musculoskeletal no cyanosis or clubbing, extremities motor strength 5/5 Skin no rashes, warm and dry Neurologic PERRL, EOMI, accommodation nl, no face palsy, no dysarthria Psychiatric A+Ox3, euthymic affect Discharge Data Allergies Allergy/AdvReac Type Severity Reaction Status Date / Time No Known Allergies Allergy Verified 06/29/20 10:14 Consultations 06/29/20 10:14 ED Decision to Admit Stat 06/29/20 10:41 Consult Gastroenterology Routine 06/29/20 10:44 Consult Urology Routine Procedures Performed Operation Date: 06/29/20 12:00 Actual Procedures p Cystoscopy, Left Ureteral Stent Placement, Left Ureteroscopy, Laser Lit hotripsy(Left) - Aravind Crowley MD Ordered Studies 06/29/20 09:22 CT abd pelvis wo con Stat 06/29/20 15:00 FL KUB Routine FL fluoroscopy <1hr Routine Diabetes Follow up Diabetes Follow-up Needed for HgbA1c >9% Hospital Course (1) DKA (diabetic ketoacidoses): has resolved pt was not on any meds for past few months due no having insurance recently established with [facility] /diabetic clinic at [facility] clinic was started on Insulin Lantus and novolog admitted with DKA due to Possible secondary to acute illness, infected ureteric stone, acute diverticulitis was treated with IV insulin drip as per DKA protocol, appreciate pharmacy glycemic management has been on SC lantus and SSI -BSG has been stable appreciate input from clinical trial educator pt will be discharged with previous dose of Lantus will be followed up with Diabetes clinic closely History of diabetes mellitus/poorly controlled Hb A1c 13 (2) DM type 2 (diabetes mellitus, type 2): poorly controlled Hb A1c 13 management as outline above (3) CKD (chronic kidney disease), stage IV: History of CKD stage IV, now with improvement to CKD stage IIIb Improvement likely due to surgery/prostatectomy which alleviated some of obstructive symptoms cr 2.2 repeat BMP in a week pt will benefit with Nephrology follow up for diabetic kidney disease (4) Hydronephrosis concurrent with and due to calculi of kidney and ureter: On CT, there is hydronephrosis and 4 mm renal stone in left ureter Patient has history of congenital kidney abnormality Follows with urology for history of prostate cancer Now presents with abdominal pain, left flank pain radiating to the left groin Urology consulted -status post urologic procedure/ureteric stent placement (5) Diverticulitis: Patient presented with abdominal pain, and diarrhea CT showing acute diverticulitis of descending colon and sigmoid colon abdominal pain and discomfort has resolved diet advanced to solid /low fiber diet today GI consulted -patient history of recent colonoscopy in 2019, known history of diverticulosis Abx changed to PO discharged home today with PO cipro and Flagyl repeat colonoscopy in 4-6 weeks (6) HTN (hypertension): resumed Lisinopril 5 mg daily repeat BMP in a week (7) Anemia: Chronic anemia due to CKD (8) Prostate cancer: (9) S/P prostatectomy: Patient underwent prostatectomy with Dr. Robert, in July 2019 Continues to follow with urology as outpatient Code: Full DVTppx: SCDs DISPOSITION : discharged pt home today Total Time Total Time Spent Total Time Spent (In Minutes): 35 mins Discharge Plan Discharge Items Patient Disposition: Home - Self-Care Reason For Visit: DKA,HYDRONEPHROSIS,DIVERTICULIS Discharge Diagnosis: ACUTE DIVERTICULITIS POORLY CONTROLLED DIABETES -DKA RENAL STONE Activity: Resume your previous activity Non-emergency contact: Primary Care Provider Call non-emergency contact if: you have any medication questions Follow-up/Referrals: Aravind Crowley MD [Physician] - Mohit Cordoba MD [Primary Care Provider] - (FOLLOW UP WITH DR ROCHA IN A WEEK , OFFICE WILL CALL WITH APPOINTMENT ) Diet: Carb Consistent or DM2 and Heart Healthy Ambulatory Orders: Basic Metabolic Panel (Routine) Timeframe: 1 Week Location: Determined by Patient Ordered By: Jessica Rios Attending Provider Instructions: You have a ureteral stent in position. This can cause urinary irritation including frequency, urgency, burning, blood. It is also not uncommon to have increased incontinence while the stent is in place. Dr. Crowley's office will arrange for stent removal after your discharge from the hospital. If you do not hear from them shortly after discharge, please contact us at [phone]. Blanca Charge Lpn Provider Instructions: FOLLOW UP AT [facility]DIABETIC CLINIC FOR BLOOD SUGAR MANAGEMENT DO NOT TAKE MORTIN , ALEVE , IBUPROPHEN , NAPROXEN , HIGH DOSE ASPIRIN WILL CAUSE WORSENING OF RENAL FUNCTION Pending Studies at Discharge: Yes Studies:: BASIC METABOLIC PANEL IN A WEEK Stand-Alone Forms: My [employer] Medications and DC Order Prescriptions: New metronidazole 250 mg Tablet 250 mg PO TID 7 Days Qty: 21 RF: 0 ciprofloxacin HCl 250 mg Tablet 250 mg PO Q12H 7 Days Qty: 14 RF: 0 lisinopril [Zestril] 5 mg Tablet 5 mg PO QAM 30 Days Qty: 30 RF: 0 Continued insulin aspart U-100 100 unit/mL (3 mL) insulin pen 5 unit SUBCUT TIDM RF: 0 Long Acting Insulin 25 unit subcut QAM RF: 0 Discharge Orders: Discharge Order (Routine); Ordered 07/02/20 Ordered By: Jessica Redding/Other Patient Handouts: Low-Fiber Diet, Managing Type 2 Diabetes Admission Data Admit Date/Time: 06/29/20 10:33 Attending Provider: Jessica Chan Admit Provider: Wally Bal Primary Care Provider: Mohit Cordoba Other Providers: Wally Bal ; Rudolph Nash ; Alo Thibodeaux ; Jose Vivas
== END 2020-07-02 18:21 | disposition home or self-care (01) | DRG 659 ==
LOC: ED 08:53 → 2E 10:33 → SUATTDRO 10:33 → 2E 11:33 → 3N 07-01 16:18

== ENCOUNTER 2025-07-15 14:15 | Observation (INO) ==
--- NOTE | 2025-07-15 14:37 | Emergency Department Note ---
Impression & Plan Hypercalcemia, CKD (chronic kidney disease) stage 4, GFR 15-29 ml/min ED Provider Note NAME: PARIS VALDES AGE: 70 SEX: M : 1955 ARRIVES VIA: Walk-In INFORMANT: [Patient][, ] ED PROVIDER(S): [Angelo Ayala MD] CHIEF COMPLAINT: Outpatient referral, elevated calcium MEDICAL DECISION MAKING: Patient presents due to concern for hypercalcemia. IV was established and blood work was obtained. Patient was ordered IV fluids. An ionized calcium ordered in addition to a PTH. Patient's blood work shows a normal white count hemoglobin and platelet count. The patient's kidney function slightly worse from yesterday at 3.04. Calcium of 11 with an iCal of 1.36. PTH is normal. I did speak the on-call home health nurse Dr. Baker who recommended hydration and admission. Patient is also known history of single kidney. I did speak with Dr. Ocasio and the patient was admitted to the medicine service. Discussion w/ other healthcare providers: Dr. Baker nephrology Dr. Ocasio inpatient medicine service Prior /Outside records reviewed: I reviewed a telephone note from Dr. Martinez. He had been ordered baseline labs and kidney function. The patient was noted to have a creat of 2.8 which is around the patient's baseline but the patient's calcium is up trended back in March when it was normal to 10 t o 11.4 last month and now it is 11.8. Differential diagnosis: Infection, dehydration, metabolic abnormality, hypo/hyperglycemia, electrolyte imbalance, anemia, UTI, pneumonia, thyroid dysfunction among others were considered. Diagnostics, as interpreted by me: ECG: Sinus with first-degree AV block, rate of 73 prolonged MI normal QRS duration, left axis deviation no obvious STEMI. Cardiac monitoring: An order was placed for continuous cardiac monitoring. The monitor shows a rate of 75 with sinus rhythm. [Patient was placed on pulse oximetry] Medical decision rules: [none] Imaging studies: None [] HPI: Patient presents due to concern for elevated calcium. The patient states that he had routine blood work that was ordered through his home health nurse yesterday and was called and asked to present to the emergency department due to concern for elevated calcium that was close to 12. Patient denies any confusion or constipation. Patient has no abdominal pain no vomiting or diarrhea. The patient does state that he has chronic urinary issues secondary to his prostate but this is not a new issue. Patient denies any chest pains or shortness of breath no cough or fever. PAST MEDICAL HISTORY: [See Below] PAST SURGICAL HISTORY: [See Below] SOCIAL HISTORY: [See Below] HOME MEDICATIONS: [See Below] ALLERGIES: [See Below] VITALS: [See Below] PHYSICAL EXAMINATION: GENERAL: NAD, non-toxic. EYE EXAM: Normal conjunctiva. PERRL, no anisocoria and EOM's grossly intact w/o pain. OROPHARYNX: Moist mucus membranes, somewhat poor dentition. NECK: Trachea midline, no stridor. LUNGS: Clear to auscultation. Normal chest wall mechanics. HEART: NSR, no MRG. ABDOMEN: Abdomen soft, non-tender, no masses, no rebound or guarding. BACK: No CVA TTP. SKIN: No rashes and no bruising. UPPER EXTREMITIES: Upper extremities are grossly normal. LOWER EXTREMITIES: Grossly normal, no edema. NEURO EXAM: Awake and alert, follows commands, no obvious facial asymmetry, normal speech, moves all 4 extremities. Past Med/Surg History Problem List (Updated 07/15/25 @ 23:26 by Angelo Ayala MD) CKD (chronic kidney disease) stage 4, GFR 15-29 ml/min (Acute) Lung nodule Hyperuricemia Vitamin D deficiency Hypercalcemia (Acute) SOB (shortness of breath) HLD (hyperlipidemia) GERD (gastroesophageal reflux disease) Type 2 diabetes mellitus with hyperglycemia Male stress incontinence Anemia HTN (hypertension) CKD (chronic kidney disease), stage IV Medical History History of tobacco abuse Left ureteral stone DKA (diabetic ketoacidoses) Diverticulitis Malignant neoplasm of prostate Gout hx Prostate cancer Diverticulosis Congenital abnormality of kidney Surgical History S/P prostatectomy History of colonoscopy History of appendectomy Family History Father Heart disease Family history of lung cancer Mother Family history of diabetes mellitus Social History Smoking Status: Never smoker Tobacco Type: Cigarettes Age Started Using Tobacco: 18; Age Quit Using Tobacco: 36; packs per day: 0.5; Second Hand Exposure: No; Do You Dip or Chew Tobacco: No; Hx Alcohol Use: No Hx Substance Use: No Preferred Language: Guatemalan Communication Ability: Effective Visual Impairment: No Limitations Hearing Ability: Normal Engrosser Required: No Beliefs That Will Affect Care: None marital status: Current Living Situation: Spouse Feels Safe at Home: Yes Childhood Exposure to Second-Hand Smoke: No Diet: regular Physical Activity Frequency: Other Seatbelt Use: never Assistive Devices: None Allergies Allergies Allergy/AdvReac Type Severity Reaction Status Date / Time No Known Allergies Allergy Verified 07/15/25 17:08 Home Meds Home Medications Medication Instructions Recorded Confirmed insulin aspart U-100 100 unit/mL 20 unit subcut BID 11/20/24 07/15/25 (3 mL) subcutaneous pen (Novolog FlexPen U-100 Insulin aspart) insulin glargine 100 unit/mL (3 42 unit subcut DAILY 11/20/24 07/15/25 mL) subcutaneous pen (Lantus Solostar U-100 Insulin) amlodipine 10 mg tablet 10 mg PO DAILY 11/27/24 07/15/25 lisinopril 20 mg tablet 20 mg PO DAILY 11/27/24 07/15/25 rosuvastatin 10 mg tablet 10 mg PO DAILY 11/27/24 07/15/25 nystatin 100,000 unit/gram topical 1 applic topical BID PRN Skin 07/15/25 07/15/25 powder Irritation tirzepatide 10 mg/0.5 mL 10 mg subcut WK 07/15/25 07/15/25 subcutaneous pen injector (Davonte) Previous Rx's Medication Instructions Recorded mirabegron 50 mg tablet,extended 50 mg PO DAILY #90 tabs 11/20/24 release 24 hr (Myrbetriq) 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,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,cont #1 ea 03/04/25 (FreeStyle Talat 3 [place]) allopurinol 100 mg tablet 100 mg PO DAILY #30 tabs 06/22/25 lancets 30 gauge (Easy Comfort #100 ea 07/13/25 Lancets) albuterol sulfate 90 mcg/actuation 1 inh inhalation QID #8.5 grams 07/14/25 aerosol inhaler 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 sensor (FreeStyle #2 ea 07/14/25 Talat 3 Sensor device) famotidine 40 mg tablet 40 mg PO HS #90 tabs 07/14/25 pen needle, diabetic 32 gauge x #100 ea 07/14/25" umeclidinium 62.5 mcg/actuation 1 inh inhalation DAILY #30 ea 07/14/25 blister powder for inhalation (Incruse Ellipta) Results & Data (ED) Vital Signs Vital Signs - 24 hr 07/15/25 14:19 07/15/25 14:56 07/15/25 15:00 Temperature 36.5 C Temperature Source Temporal Artery Scan Pulse Rate 92 H 82 Pulse Rate [Apical] 83 Respiratory Rate 18 18 Respiratory Effort / Characteristics Non-Labored Spontaneous Respiratory Depth Normal Blood Pressure 138/98 Blood Pressure [Right Arm] 114/84 Blood Pressure Mean 111 Blood Pressure Mean [Right Arm] 94 Blood Pressure Position Sitting Pulse Oximetry 95 94 Oxygen Delivery Method Room Air Room Air Sepsis Recent Fever Within 48 Hours No Sepsis New/Unexplained Change in Mental Status No Sepsis Action Taken by Nursing No Action Required Home Medications Current Medication List: was personally reviewed by me Laboratory Data Attestation: I reviewed the patient's lab results. 07/15/25 14:46 07/15/25 14:46 Lab Results 07/15/25 Range/Units 14:46 WBC 8.58 (4.8-10.8) K/ul RBC 4.84 (4.70-6.10) M/uL Hgb 14.7 (14.0-18.0) g/dL Hct 41.9 L (42.0-52.0) % MCV 86.6 (80.0-100.0) fL MCH 30.4 (25.0-34.0) pg MCHC 35.1 (32.0-36.0) g/dL RDW Std Deviation 40.2 (36.4-46.3) fL RDW Coeff of Rich 12.8 (11.5-14.5) % Plt Count 163 (130-400) K/uL MPV 11.8 (9.4-12.4) fL Immature Gran % (Auto) 0.5 % Neut % (Auto) 80.2 % Lymph % (Auto) 11.0 % [place] % (Auto) 6.2 % Eos % (Auto) 1.3 % Baso % (Auto) 0.8 % Neut # (Auto) 6.89 H (1.40-6.50) K/uL Lymph # (Auto) 0.94 L (1.20-3.40) K/uL [place] # (Auto) 0.53 (0.11-0.59) K/uL Eos # (Auto) 0.11 (0.00-0.50) K/uL Baso # (Auto) 0.07 (0.00-0.20) K/uL Immature Gran # (Auto) 0.04 (0.01-0.20) K/uL Sodium 137 (136-145) mmol/L Potassium 4.2 (3.5-5.1) mmol/L Chloride 102 (98-107) mmol/L Carbon Dioxide 27 (21-32) mmol/L Anion Gap 8 (3-11) BUN 40 H (6-23) mg/dl Creatinine 3.04 H (0.6-1.4) mg/dl Est Cr Clr Drug Dosing 18.9 ml/min eGFR 21.32 BUN/Creatinine Ratio 13.2 (10-20) Glucose 201 H (70-99(Fasting)) mg/dl Calcium 11.0 H (8.6-10.3) mg/dl Ionized Calcium 1.36 H (1.12-1.32) mmol/L Total Bilirubin 0.6 (0.2-1.0) mg/dl AST 17 (13-39) U/L ALT 12 (7-52) U/L Alkaline Phosphatase 66 (34-104) U/L Total Protein 7.4 (6.0-8.3) gm/dl Albumin 3.9 (3.4-5.0) gm/dl Globulin 3.5 (2.5-4.0) gm/dl Albumin/Globulin Ratio 1.1 (0.9-2) PTH Intact 85.9 (12.0-88.0) pg/ml Administered Medications Famotidine (Famotidine 40 Mg Tablet) 40 mg PO HS KIRTI Stop: 08/14/25 20:59 Last Admin: 07/15/25 22:43 Dose: 40 mg Documented By: petty Sodium Chloride (Nss) 1,000 mls @ 80 mls/hr IV .[id number] KIRTI Stop: 07/16/25 23:15 Last Admin: 07/15/25 22:49 Dose: 80 mls/hr Documented By: petty Insulin Aspart (Insulin Aspart Per Unit Charge) 0 units SC ACHS KIRTI Stop: 08/14/25 20:59 Last Admin: 07/15/25 22:41 Dose: Not Given Documented By: petty Co-signed By: JAVAD Discontinued Medications Sodium Chloride (Nss) 1,000 mls @ 999 mls/hr IV .Q1H1M ONE Stop: 07/15/25 17:43 Last Infusion: 07/15/25 18:25 Dose: Infused Documented By: [id number] Admin: 07/15/25 16:46 Dose: 999 mls/hr Documented By: [id number] Imaging Data Radiologist's Impression: Chest X-Ray 07/15/25 14:49 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 No consolidation or pleural effusion seen. No gross lung mass seen. IMPRESSION: No acute findings. ACT 112: Negative or not required by law. Electronically signed by: Jose Reece M.D. 07/15/2025 3:36 PM Discharge Plan Visit Data Chief Complaint: Referred by Doctor Stated Complaint: CALCIUM HIGH, ED Provider: Angelo Ayala Discharge Problem: Hypercalcemia, CKD (chronic kidney disease) stage 4, GFR 15-29 ml/min Patient Disposition: Admitted As Inpatient Condition: Good Discharge Instructions Interventions: ED Discharge Assessment Last Done: 07/15/25 21:30
[2025-07-15 15:06] LABS: Hematocrit (blood only) 41.9 % (42.0-52.0); Hemoglobin 14.7 g/dL (14.0-18.0); Immature Granulocytes # (auto) 0.04 K/uL (0.01-0.20); Immature Granulocytes % (auto) 0.5 %; Mean Corpuscular Hemoglobin 30.4 pg (25.0-34.0); Mean Corpuscular Volume 86.6 fL (80.0-100.0); Platelet Count 163 K/uL (130-400); RDW Standard Deviation 40.2 fL (36.4-46.3); Red Blood Count 4.84 M/uL (4.70-6.10); White Blood Count 8.58 K/ul (4.8-10.8)
[2025-07-15 15:24] LABS: Alanine Aminotransferase 12.0 U/L (7-52); Albumin Globulin Ratio 1.1 (0.9-2); Albumin Level 3.9 gm/dl (3.4-5.0); Alkaline Phosphatase 66.0 U/L (34-104); Anion Gap 8.0 (3-11); Bilirubin,Total 0.6 mg/dl (0.2-1.0); Blood Urea Nitrogen 40.0 mg/dl (6-23); Calcium 11.0 mg/dl (8.6-10.3); Carbon Dioxide 27.0 mmol/L (21-32); Chloride 102.0 mmol/L (98-107); Creatinine Clr Calc Pharmacy 18.9 ml/min; Globulin 3.5 gm/dl (2.5-4.0); Glucose 201.0 mg/dl (70-99(Fasting)); Potassium 4.2 mmol/L (3.5-5.1); Sodium 137.0 mmol/L (136-145); Total Protein 7.4 gm/dl (6.0-8.3)
--- NOTE | 2025-07-15 15:37 | XRay Report ---
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 No consolidation or pleural effusion seen. No gross lung mass seen. IMPRESSION: No acute findings. ACT 112: Negative or not required by law. Electronically signed by: Jose Reece M.D. 07/15/2025 3:36 PM
[2025-07-15] MEDS: SODIUM CHLORIDE 0.9% 1,000 ML IV ONE (16:46)
[2025-07-15] MEDS ORDERED: ACETAMINOPHEN 325 MG TAB PO PRN (17:14)
[2025-07-15] MEDS ORDERED: NON-FORMULARY MEDICATION (Tirzepatide [Mounjaro] 10 mg/0.5 mL pen injector) SQ SCH (17:30)
--- NOTE | 2025-07-15 17:50 | History & Physical Report ---
Date of Service July 15, 2025 Assessment & Plan (1) CKD (chronic kidney disease) stage 4, GFR 15-29 ml/min: Plan: Acute kidney failure and hypercalcemia Hyper calcemia is improving and is now 11.0 from yesterday's 07/11 Creatinine however is rising, had extensive discussion with Financial Compliance Officer. He preferred patient be admitted under obs given his acute kidney failure. abdon hold no inhibitor, add IVF and monitor. (2) HLD (hyperlipidemia): Plan: resume home meds (3) Type 2 diabetes mellitus with hyperglycemia: Plan: place on short acting insulin and monitor. (4) HTN (hypertension): Plan: resume meds except for lisinopril (5) CKD (chronic kidney disease), stage IV: History of Present Illness Chief Complaint: hypercalcemia Primary Care Provider: Raul Levin DO Patient is asymptomatic, here for abnormal labs. Patient with one kidney and CKD stage 4. Patient reports he was told to come to the ED for abnormal labs. Allergies Allergy/AdvReac Type Severity Reaction Status Date / Time No Known Allergies Allergy Verified 07/15/25 17:08 Home Medications Medication Instructions Recorded Confirmed Type insulin aspart U-100 100 unit/mL 20 unit subcut BID 11/20/24 07/15/25 History (3 mL) subcutaneous pen (Novolog FlexPen U-100 Insulin aspart) insulin glargine 100 unit/mL (3 42 unit subcut DAILY 11/20/24 07/15/25 History mL) subcutaneous pen (Lantus Solostar U-100 Insulin) mirabegron 50 mg tablet,extended 50 mg PO DAILY #90 tabs 11/20/24 07/15/25 Rx release 24 hr (Myrbetriq) amlodipine 10 mg tablet 10 mg PO DAILY 11/27/24 07/15/25 History lisinopril 20 mg tablet 20 mg PO DAILY 11/27/24 07/15/25 History rosuvastatin 10 mg tablet 10 mg PO DAILY 11/27/24 07/15/25 History 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,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,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 ea 03/04/25 07/14/25 Rx (FreeStyle Talat 3 [place]) allopurinol 100 mg tablet 100 mg PO DAILY #30 tabs 06/22/25 07/15/25 Rx lancets 30 gauge (Easy Comfort #100 ea 07/13/25 07/14/25 Rx Lancets) albuterol sulfate 90 mcg/actuation 1 inh inhalation QID #8.5 grams 07/14/25 07/15/25 Rx aerosol inhaler 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 sensor (FreeStyle #2 ea 07/14/25 07/14/25 Rx Talat 3 Sensor device) famotidine 40 mg tablet 40 mg PO HS #90 tabs 07/14/25 07/15/25 Rx pen needle, diabetic 32 gauge x #100 ea 07/14/25 07/14/25 Rx 5/32" umeclidinium 62.5 mcg/actuation 1 inh inhalation DAILY #30 ea 07/14/25 07/15/25 Rx blister powder for inhalation (Incruse Ellipta) nystatin 100,000 unit/gram topical 1 applic topical BID PRN Skin 07/15/25 07/15/25 History powder Irritation tirzepatide 10 mg/0.5 mL 10 mg subcut WK 07/15/25 07/15/25 History subcutaneous pen injector ([place]) Past Med/Surg History Problem List CKD (chronic kidney disease) stage 4, GFR 15-29 ml/min (Acute) Lung nodule Hyperuricemia Vitamin D deficiency Hypercalcemia (Acute) SOB (shortness of breath) HLD (hyperlipidemia) GERD (gastroesophageal reflux disease) Type 2 diabetes mellitus with hyperglycemia Male stress incontinence Anemia HTN (hypertension) CKD (chronic kidney disease), stage IV Medical History History of tobacco abuse Left ureteral stone DKA (diabetic ketoacidoses) Diverticulitis Malignant neoplasm of prostate Gout hx Prostate cancer Diverticulosis Congenital abnormality of kidney Surgical History S/P prostatectomy History of colonoscopy History of appendectomy Family History Father Heart disease Family history of lung cancer Mother Family history of diabetes mellitus Social History Smoking Status: Former smoker Tobacco Type: Cigarettes Age Started Using Tobacco: 18; Age Quit Using Tobacco: 36; packs per day: 0.5; Second Hand Exposure: No; Do You Dip or Chew Tobacco: No; Hx Alcohol Use: No Hx Substance Use: No Preferred Language: Faroese Communication Ability: Effective Visual Impairment: No Limitations Hearing Ability: Normal 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 Beliefs That Will Affect Care: None marital status: Current Living Situation: Spouse Other Information That Helps Us Care for You: No Feels Safe at Home: Yes Safety Concerns: Feels Safe At This Time Childhood Exposure to Second-Hand Smoke: No Diet: regular Physical Activity Frequency: Other Seatbelt Use: never Assistive Devices: Cane, Glasses, Hearing Aid - Bilateral and Walker Review of Systems Constitutional: no fever and no body aches Eyes: no blind spots and no discharge Ear, Nose, Mouth, Throat: no ear pain and no tinnitus Respiratory: no cough and no dyspnea Cardiovascular: no chest pain and no radiating jaw, neck or arm pain Gastrointestinal: no abdominal pain Musculoskeletal: no back pain Integumentary: no acne Neurologic: no gait abnormality Psychiatric: no behavioral changes Allergy / Immunological: no GI upset with certain foods Physical Exam Constitutional: WD/WN, vitals as above Neck: trachea midline, no thyromegaly Respiratory: normal respiratory effort, lungs clear to auscultation Cardiovascular: RRR, no murmur, no edema Gastrointestinal (Abdomen): normal bowel sounds, soft, nontender, no hepatosplenomegaly Musculoskeletal: no cyanosis or clubbing, extremities motor strength 5/5 Skin: no rashes, warm and dry Psychiatric: A+Ox3, euthymic affect Lymphatic: no cervical or axillary lymphadenopathy Results & Data Results & Data Vital Signs (Past 12 Hours) Vital Signs Temp Pulse Pulse Resp BP BP Pulse Ox 07/15/25 15:00 83 18 114/84 94 07/15/25 14:56 82 07/15/25 14:19 36.5 C 92 H 18 138/98 95 O2 Del Method 07/15/25 15:00 Room Air 07/15/25 14:56 07/15/25 14:19 Room Air PG Care Time/CCT Total # of Minutes Spent Total Time Spent with Patient: Total time spent is greater than 50% in coordination of care (as documented) at patient's floor/unit and/or counseling patient: Coding Level of Care Code 05641 INT INP/OBS CARE 3/75MIN Diagnoses CKD (chronic kidney disease) stage 4, GFR 15-29 ml/min N18.4 HLD (hyperlipidemia) E78.5 Type 2 diabetes mellitus with hyperglycemia E11.65 HTN (hypertension) I10
[2025-07-15] MEDS ORDERED: GLUCOSE 10 TAB/TUBE PO PRN (21:15)
[2025-07-15] MEDS ORDERED: CARBOHYDRATES FOR HYPOGLYCEMIA PO PRN (21:15)
[2025-07-15] MEDS ORDERED: GLUCAGON FOR INJ 1 MG VIAL SQ PRN (21:15)
[2025-07-15] MEDS ORDERED: GLUCOSE 40% GEL 15 GM TUBE PO PRN (21:15)
[2025-07-15] MEDS ORDERED: DEXTROSE 50% 50 ML SYRINGE IV PRN (21:15)
[2025-07-15] MEDS: INSULIN ASPART PER UNIT CHARGE SC SCH (22:41)
[2025-07-15] MEDS: FAMOTIDINE 40 MG TABLET PO SCH (22:43)
[2025-07-15] MEDS: SODIUM CHLORIDE 0.9% 1,000 ML IV SCH (22:49)
[2025-07-16 02:53] VITALS: TEMP 98.1
[2025-07-16 07:06] LABS: Anion Gap 5.0 (3-11); Blood Urea Nitrogen 36.0 mg/dl (6-23); Calcium 10.1 mg/dl (8.6-10.3); Carbon Dioxide 23.0 mmol/L (21-32); Chloride 111.0 mmol/L (98-107); Creatinine Clr Calc Pharmacy 22.4 ml/min; Glucose 127.0 mg/dl (70-99(Fasting)); Potassium 3.8 mmol/L (3.5-5.1); Sodium 139.0 mmol/L (136-145)
[2025-07-16 07:13] VITALS: RESP 18; O2SAT 95
--- NOTE | 2025-07-16 08:11 | Discharge Summary ---
Discharge Summary Date of Service July 16, 2025 Principal Dx & Hospital Course #1 = Principal Diagnosis (1) CKD (chronic kidney disease) stage 4, GFR 15-29 ml/min: Acute kidney failure and hypercalcemia Hyper calcemia is improving and is now 11.0 from yesterday's 07/11 Creatinine however is rising, had extensive discussion with Under Seal Operator. He preferred patient be admitted under obs given his acute kidney failure. abdon hold no inhibitor, add IVF and monitor. (2) HLD (hyperlipidemia): resume home meds (3) Type 2 diabetes mellitus with hyperglycemia: place on short acting insulin and monitor. (4) HTN (hypertension): resume meds except for lisinopril Admission HPI Per Admitting Provider Patient is asymptomatic, here for abnormal labs. Patient with one kidney and CKD stage 4. Patient reports he was told to come to the ED for abnormal labs. Discharge Exam Constitutional WD/WN, vitals as above Neck trachea midline, no thyromegaly Respiratory normal respiratory effort, lungs clear to auscultation Cardiovascular RRR, no murmur, no edema Gastrointestinal (Abdomen) normal bowel sounds, soft, nontender, no hepatosplenomegaly Musculoskeletal no cyanosis or clubbing, extremities motor strength 5/5 Skin no rashes, warm and dry Psychiatric A+Ox3, euthymic affect Lymphatic no cervical or axillary lymphadenopathy Discharge Plan Discharge Items Patient Disposition: Home - Self-Care Reason For Visit: HYPERKALEMIA Discharge Diagnosis: hypercalcemia Condition on Discharge: Good Activity: Resume your previous activity Non-emergency contact: Primary Care Provider Call non-emergency contact if: you have any medication questions Follow-up/Referrals: Raul Levin DO [Primary Care Provider] - Diet: Dialysis Renal Addtl Attending Provider Instructions: Recommend followup with PCP in 1-2 weeks. Recommend rechecking your blood work next week. Pending Studies at Discharge: No Stand-Alone Forms: My [place], Smoking Cessation Medications and DC Order Prescriptions: Continued (DME) FreeStyle Talat 3 [place] Misc See Rx Instructions .Route Qty: 1 0RF Rx Instructions: As directed (DME) lancets [Easy Comfort Lancets] 30 gauge misc See Rx Instructions .Route Qty: 100 0RF Rx Instructions: Testing 3-4 times per day DX: E11.65 albuterol sulfate 90 mcg/actuation HFA aerosol inhaler 1 inh inhalation QID Qty: 8.5 2RF (DME) FreeStyle Talat 3 Sensor Device See Rx Instructions .Route Qty: 2 5RF Rx Instructions: As directed (DME) pen needle, diabetic 32 gauge x 5/32" needle See Rx Instructions .Route Qty: 100 0RF Rx Instructions: As directed famotidine 40 mg tablet 40 mg PO HS Qty: 90 1RF Incruse Ellipta 62.5 mcg/actuation blister with device 1 inh inhalation DAILY Qty: 30 5RF insulin glargine [Lantus Solostar U-100 Insulin] 100 unit/mL (3 mL) insulin pen 42 unit subcut DAILY insulin aspart U-100 [Novolog FlexPen U-100 Insulin] 100 unit/mL (3 mL) insulin pen 20 unit subcut BID mirabegron [Myrbetriq] 50 mg tablet extended release 24 hr 50 mg PO DAILY Qty: 90 3RF amlodipine 10 mg tablet 10 mg PO DAILY rosuvastatin 10 mg tablet 10 mg PO DAILY allopurinol 100 mg tablet 100 mg PO DAILY Qty: 30 3RF nystatin 100,000 unit/gram powder 1 applic topical BID PRN (Reason: Skin Irritation) Mounjaro 10 mg/0.5 mL pen injector 10 mg subcut WK Rx Instructions: FRIDAYS Held lisinopril 20 mg tablet 20 mg PO DAILY Hold Instructions: Provider's Order Discharge Orders: Discharge Order (Routine); Ordered 07/16/25 Ordered By: Aris Ocasio Admission Data Admit Date/Time: 07/15/25 17:15 Attending Provider: Aris Ocasio Admit Provider: Aris Ocasio Primary Care Provider: Raul Levin Other Providers: Aris Ocasio Hospital Stay Data Consultations 07/15/25 16:43 ED Decision to Admit Stat Pending Results Patient Have Any Pending Studies at Discharge: No Discharge Instructions Given to Patient (Per Discharging Provider) Recommend followup with PCP in 1-2 weeks. Recommend rechecking your blood work next week. Coding Diagnoses CKD (chronic kidney disease) stage 4, GFR 15-29 ml/min N18.4 HLD (hyperlipidemia) E78.5 Type 2 diabetes mellitus with hyperglycemia E11.65 HTN (hypertension) I10
[2025-07-16 09:13] VITALS: BP 139/94; PULSE 92
[2025-07-16] MEDS: VIBEGRON 75 MG TAB PO SCH (09:13)
[2025-07-16] MEDS: ROSUVASTATIN CALCIUM 10 MG TAB PO SCH (09:14)
[2025-07-16] MEDS: UMECLIDINIUM BROMIDE 62.5MCG/BLISTER 7 PUFFS/INHALER INH SCH (09:14)
[2025-07-16] MEDS: LANTUS PER UNIT CHARGE SC SCH (09:16)
[2025-07-16 10:11] LABS: Hematocrit (blood only) 42.3 % (42.0-52.0); Hemoglobin 14.9 g/dL (14.0-18.0); Mean Corpuscular Hemoglobin 30.7 pg (25.0-34.0); Mean Corpuscular Volume 87.0 fL (80.0-100.0); Platelet Count 185 K/uL (130-400); RDW Standard Deviation 40.7 fL (36.4-46.3); Red Blood Count 4.86 M/uL (4.70-6.10); White Blood Count 8.05 K/ul (4.8-10.8)
--- NOTE | 2025-07-17 09:26 | Electrocardiogram Report ---
Test Reason : Blood Pressure : */* mmHG Vent. Rate : 84 BPM Atrial Rate : 84 BPM P-R Int : 230 ms QRS Dur : 82 ms QT Int : 346 ms P-R-T Axes : 24 -55 27 degrees QTcB Int : 408 ms Sinus rhythm with 1st degree A-V block Left axis deviation Inferior infarct (cited on or before 29-Jun-2020) Abnormal ECG When compared with ECG of 29-Jun-2020 09:35, QRS axis Shifted left QT has shortened Confirmed by Jona Bergeron ([id number]) on 07/17/2025 9:26:17 AM Referred By: Jewels Grande Confirmed By: Jona Bergeron
--- NOTE | 2025-07-17 09:39 | Electrocardiogram Report ---
Test Reason : Blood Pressure : */* mmHG Vent. Rate : 73 BPM Atrial Rate : 73 BPM P-R Int : 242 ms QRS Dur : 88 ms QT Int : 380 ms P-R-T Axes : 13 -34 36 degrees QTcB Int : 418 ms Sinus rhythm with 1st degree A-V block Left axis deviation Inferior infarct (cited on or before 29-Jun-2020) Abnormal ECG When compared with ECG of 29-Jun-2020 09:35, No significant change Confirmed by Jona Bergeron ([id number]) on 07/17/2025 9:39:45 AM Referred By: Jewels Grande Confirmed By: Jona Bergeron
== END 2025-07-16 13:50 | disposition home or self-care (01) ==
LOC: 3N 14:15 → ED 14:15 → 3N 21:30